=== PATIENT | female | born 1965 | race Caucasian/White ===

== ENCOUNTER 2018-06-24 17:18 | Inpatient (IN) | payer OTHER, SELFPAY ==
[2018-06-24] VITALS (10 sets, daily range): BP systolic 135–158; BP diastolic 82–101; PULSE 88–107; RESP 18–31; TEMP 36.6–37.3; O2SAT 90–95; BMI 18.9; BMI 16.5; BMI 16.6
--- NOTE | 2018-06-24 18:16 | EKG12_ITS ---
Test Reason : SOB Blood Pressure : / mmHG Vent. Rate : 081 BPM Atrial Rate : 081 BPM P-R Int : 116 ms QRS Dur : 074 ms QT Int : 374 ms P-R-T Axes : 074 089 072 degrees QTc Int : 434 ms Normal sinus rhythm Normal ECG Confirmed by MICHAEL ACKERMAN, DELICIA ([id number]), script editor JUAN CARLOS OLIVARES ([id number]) on 06/29/2018 1:53:59 PM Referred By: NOE Confirmed By:DELICIA RODRIGUEZ MD
[2018-06-24] MEDS: Ipratropium/Albuterol Sulfate 3 ML AMPUL.NEB INHALATION (18:24)
[2018-06-24 18:34] LABS: Absolute Lymphocyte Count 1.38 X10^3/ul (0.83-4.51); Absolute Neutrophil Count 3.7 X10^3/uL (2.0-7.7); Basophil# 0.01 X10^3/uL; Basophil% 0.2 % (0-1); Eosinophil# 0.07 X10^3/uL; Eosinophils% 1.2 % (0-5); Hematocrit 39.5 % (37-47); Hemoglobin 13.1 g/dl (12.0-15.0); Lymphocyte # 1.38 X10^3/ul (4.0); Lymphocyte % 24.3 % (19-41); Mean Corp Hgb Conc 33.2 g/gl (32-36); Mean Corpuscular Hgb 29.7 pg (27.0-32.0); Mean Corpuscular Volume 89.6 fL (81-99); Mean Platelet Vol. 9.9 fl (6.2-12.0); Monocyte# 0.55 X10^3/uL; Monocyte% 9.7 % (0-10); Neutrophil # 3.66 X10^3/uL (2.7-7.7); Neutrophil % 64.6 % (47-70); POSITIVE COUNT NO; POSITIVE DIFFERENTIAL NO; POSITIVE MORPHOLOGY NO; Platelet Count 186 K/mm3 (150-450); RBC Distribution Width CV 13.1 % (11.6-14.6); RBC Distribution Width SD 42.5 fl (35.1-43.9); Red Blood Count 4.41 M/mm3 (4.2-5.4); White Blood Count 5.7 K/mm3 (4.4-11.0)
--- NOTE | 2018-06-24 18:56 | RAD_ITS ---
STUDY: X-RAY CHEST REASON FOR EXAM: Female, 52 years old. Shortness of breath TECHNIQUE: PA and lateral views of the chest COMPARISON: None. FINDINGS: COPD changes are present. The lungs are clear. There are no pleural effusions. There is no pneumothorax. The heart is normal in size. The visualized osseous structures are within normal limits. RAD/Chest PA and Lateral IMPRESSION: No acute thoracic pathology. COPD. Electronically Signed: Phil Bishop, at 19:26 EDT Tel , Service support ,
[2018-06-24 18:57] LABS: Anion Gap 6 (5-15); BUN 11 mg/dL (7-18); BUN/Creat Ratio 24.4 RATIO (10-20); Calcium,Total 8.1 mg/dL (8.5-10.1); Chloride 106 mmol/L (98-107); Creatinine, Serum 0.45 mg/dL (0.55-1.02); EST Glomerular Filtration Rate 154 mL/min (>60); Est Glom Filt Rate - Afr Amer 186 mL/min (>60); Estimated Creatinine Clearance 99.27 ml/min; Glucose 112 mg/dL (74-106); Potassium 3.5 mmol/L (3.5-5.1); Sodium Level 139 mmol/L (136-145)
--- NOTE | 2018-06-24 19:35 | ED.VISSUMM ---
- ER Visit Summary Date of Service: 06/24/18 Chief Complaint: Shortness of breath History of Present Illness: The patient is a 52 F who presents with shortness of breath that has been getting worse over the past 6 days. Patient states her breathing is worse with any exertion. Patient states she is having a cough but denies any sputum. Patient admits to some rhinorrhea. Patient also admits to some subjective chills. Patient states she feels tight across her chest. Physical Examination: Vital signs are stable except for pulse oximeter of 93% on 3 L by nasal cannula. Patient is not normally on oxygen. She also has a mild tachypnea with a respiratory rate of 31. Patient is in no acute distress. Oromucosa is pink and moist. Neck is supple. Trachea is midline. There is no JVD noted. Heart was regular rate and rhythm. Lungs showed diminished breath sounds with some faint wheezing bilaterally. There is good respiratory effort noted. There are no retractions noted. Cranial nerves II through XII are intact. There are no focal motor or sensory deficits noted. Test Results: Chest x-ray shows COPD and chronic changes but no acute infiltrate. EKG showed normal sinus rhythm with a rate of 81. There are no acute ST or T wave changes. CBC and basic metabolic profile were obtained and were essentially within normal limits. Emergency Department Course and Treatment: Patient was given a DuoNeb aerosol here. Patient was given a repeat albuterol aerosol and was given Solu-Medrol. Patient states she got short of breath walking to the bathroom. Case was discussed with the hospitalist. He will admit the patient to the hospital. Patient and family understood and were agreeable with the plan. All questions were answered. Disposition: Admit to hospital Impression: 1. COPD exacerbation 2. Hypoxemia This note was generated with [employer] dictation software. It may contain incorrect words, spelling, and punctuation that were not noted in review of the chart prior to signing ED Disposition - Plan for ED Patient: Disposition: Acute Care Hospital [facility] Diagnosis: COPD exacerbation Referrals: Bradford Brown MD [Primary Care Provider] -
--- NOTE | 2018-06-24 19:38 | ED.DCSUM_ITS ---
- ER Visit Summary Date of Service: 06/24/18 Chief Complaint: Shortness of breath History of Present Illness: The patient is a 52 F who presents with shortness of breath that has been getting worse over the past 6 days. Patient states her breathing is worse with any exertion. Patient states she is having a cough but denies any sputum. Patient admits to some rhinorrhea. Patient also admits to some subjective chills. Patient states she feels tight across her chest. Physical Examination: Vital signs are stable except for pulse oximeter of 93% on 3 L by nasal cannula. Patient is not normally on oxygen. She also has a mild tachypnea with a respiratory rate of 31. Patient is in no acute distress. Oromucosa is pink and moist. Neck is supple. Trachea is midline. There is no JVD noted. Heart was regular rate and rhythm. Lungs showed diminished breath sounds with some faint wheezing bilaterally. There is good respiratory effort noted. There are no retractions noted. Cranial nerves II through XII are intact. There are no focal motor or sensory deficits noted. Test Results: Chest x-ray shows COPD and chronic changes but no acute infiltrate. EKG showed normal sinus rhythm with a rate of 81. There are no acute ST or T wave changes. CBC and basic metabolic profile were obtained and were essentially within normal limits. Emergency Department Course and Treatment: Patient was given a DuoNeb aerosol here. Patient was given a repeat albuterol aerosol and was given Solu-Medrol. Patient states she got short of breath walking to the bathroom. Case was discussed with the hospitalist. He will admit the patient to the hospital. Patient and family understood and were agreeable with the plan. All questions were answered. Disposition: Admit to hospital Impression: 1. COPD exacerbation 2. Hypoxemia This note was generated with appsplit dictation software. It may contain incorrect words, spelling, and punctuation that were not noted in review of the chart prior to signing ED Disposition - Plan for ED Patient: Disposition: Acute Care Hospital [facility] Diagnosis: COPD exacerbation Referrals: Bradford Brown MD [Primary Care Provider] -
[2018-06-24] MEDS: Albuterol 2.5 MG/3 ML VIAL.NEB. INHALATION (19:44)
[2018-06-24] MEDS: MethylPREDNISolone 125 MG/2 ML Vial IV (20:02)
--- NOTE | 2018-06-24 21:01 | HP.PCM_ITS ---
Problem List (1) COPD exacerbation Status: Chronic History of Present Illness Date of Admission: 06/24/18 Chief Complaint: shortness of breath The patient is a 52 year old F with a significant history of tobacco abuse; COPD; emphysema and asthma who presented with 1 day history of severe shortness of breath. She went to her PCPs office and she had to be put in a wheelchair and had oxygen supplementation because of severe shortness of breath. At [facility] she does not use home oxygen. She has baseline cough but she thinks that she is coughing more deep but unable to bring anything up. Past Medical History Past Medical History (Chronic Problems): Chronic Problems (Last Updated 06/25/18 @ 00:51 by Dionisio Robles MD) COPD exacerbation (Chronic) Medical History: Medical History (Last Reviewed 06/25/18 @ 03:47 by Dionisio Robles MD) COPD (chronic obstructive pulmonary disease) J44.9 Allergies No Known Allergies Allergy (Verified 06/24/18 17:26) Home Medications: Ambulatory Orders Medication Instructions Recorded Aclidinium [place] [Tudorza 400 mcg IH DAILY 09/23/16 Pressair] Albuterol IH (ProAir) [Proair Hfa 1 - 2 puff INHALATION Q6H PRN PRN 09/23/16 (SP)Vent Pts] Budesonide/Formoterol 160/4.5 2 puff INHALATION BID 09/23/16 [Symbicort 160/4.5 Mcg Inhaler (SP)] Surgical History: herniorrhaphy, - - Right wrist surgery for broken wrist. Lives: Spouse/ Significant Other Smoking Status: Current every day smoker Alcohol: None - *Family History Maternal History Items: Heart Disease Paternal History Items: - - Patient is unsure of paternal medical history. Review of Systems Constitutional: Denies: Chills, Fever, Weight Change HEENT: Denies: Head Aches, Sinus Congestion, Sinus Drainage Cardiovascular: Denies: Chest Pain, Palpitations Respiratory: Reports: Cough, Shortness of Breath, Wheezing Gastrointestinal: Denies: Abdominal Pain, Nausea, Vomiting Genitourinary: Denies: Dysuria Musculoskeletal: Denies: Joint Pain, Joint Tenderness Skin: Denies: Rash, Wounds Neurological: Denies: Numbness, Tingling, Focal weakness Psychiatric: Denies: Anxiety, Depression, Homicidal Ideations, Suicidal Ideations Hematologic/ Lymphatic: Denies: Easy Bruising, Easy Bleeding VTE Information - Inpt Only VTE Present on Admission: No VTE Mechan Device Prophylaxis: None VTE Pharm Prophylaxis ordered?: Yes - Physical Exam General: Alert, Oriented x3, Cooperative HEENT: Atraumatic, PERRLA, EOMI, Normocephalic Neck: Supple, No JVD, Negative Carotid Bruits Lungs: Diminished, Tachypneic, Using Accessory Muscles, - - Barrel chest Cardiovascular: No murmurs, Tachycardic Abdomen: Bowel Sounds Present, Soft, Non Tender Extremities: No edema, Capillary Refill Less than 3 Seconds Skin: No rashes, No breakdown Musculoskeletal: No Tenderness to Palpation of Joints or Extremities Neurological: Cranial nerves II-XII grossly intact Psych/Mental Status: Normal Affect, Appropriate, - - Teary Vital Signs Temp Pulse Resp BP Pulse Ox 98.9 F 107 H 18 143/82 H 95 06/24/18 17:28 06/24/18 19:44 06/24/18 19:44 06/24/18 19:40 06/24/18 19:40 Oxygen Flow Rate (L/min) 3 Oxygen Delivery Method Nasal Cannula Weight: 44 kg Body Mass Index (BMI) 18.9 Laboratory Tests Past 24 Hrs 06/24/18 06/24/18 18:24 18:24 WBC 5.7 RBC 4.41 Hgb 13.1 Hct 39.5 MCV 89.6 MCH 29.7 MCHC 33.2 RDW 13.1 RDW Differential 42.5 Plt Count 186 MPV 9.9 Immature Gran % (Auto) 0.000 Neut % (Auto) 64.6 Lymph % (Auto) 24.3 [place] % (Auto) 9.7 Eos % (Auto) 1.2 Baso % (Auto) 0.2 Absolute Neuts (auto) 3.7 Absolute Lymphs (auto) 1.38 Total Counted Not Reportable Sodium 139 Potassium 3.5 Chloride 106 Carbon Dioxide 27.0 Anion Gap 6 BUN 11 Creatinine 0.45 L Estim Creat Clear Calc 99.27 Est GFR (MDRD) Af Amer 186 Est GFR (MDRD) Non-Af 154 BUN/Creatinine Ratio 24.4 H Glucose 112 H Calcium 8.1 L Assessment/Plan The patient is a 52 year old F with a significant history of tobacco abuse; COPD; emphysema and asthma who presented with severe shortness of breath; and change in characteristic of cough consistent with likely COPD exacerbation. Acute COPD exacerbation Received breathing treatments and Solu-Medrol at emergency department. Solu-Medrol continued. Scheduled DuoNeb ordered PRN Albuterol ordered We will hold home inhalers at this time. Scheduled mucinex ordered. Azithromycin ordered. Chest physiotherapy ordered. Tobacco abuse Counselled Declined nicotine patch stating that for the past few days she has cut back and is now smoking only 2 sticks of cigarettes per day. DVT prophylaxis Subcutaneous Lovenox ordered. Code Visit Inpatient E&M: [id number] Init Hosp L3
--- NOTE | 2018-06-24 21:06 | ED.RN ---
PT SEVERE SOB WHILE AMBULATING. DID NOT TOLERATE WALKING TO AND FROM THE BATHROOM WELL. DR. HAMILTON AWARE
[2018-06-25] VITALS (18 sets, daily range): BP systolic 114–144; BP diastolic 78–93; PULSE 82–124; RESP 16–24; TEMP 36.5–37.2; O2SAT 3–95
[2018-06-25] MEDS: Ipratropium/Albuterol Sulfate 3 ML AMPUL.NEB INHALATION ×6 (02:50→23:00)
[2018-06-25] MEDS: Enoxaparin 40 MG/0.4 ML Syringe SC (09:04)
[2018-06-25] MEDS: guaiFENesin 1,200 MG Tablet 1200 MG PO ×2 (09:04→22:25)
[2018-06-25] MEDS: Albuterol 2.5 MG/3 ML VIAL.NEB. INHALATION (09:23)
--- NOTE | 2018-06-25 13:16 | CASEMGMT ---
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 Marina Andino SLAB GRINDER, PLANT AND EQUIPMENT WORKER
--- NOTE | 2018-06-25 13:18 | PCM.PROGNOTE ---
Subjective: Pt still SOB and requiring 4.5 lpm O2 to maintain good sats. She is SOB at rest and severely with standing up next to the bed. Using the bedside commode because she cannot walk to the bathroom. Still smokes about 1/3 PPD. Very wheezy, conversational dyspnea. Cough productive of clear sputum. No fever/ chills. Some chest heaviness with breathing. - Physical Exam General: Alert, Oriented x3, Cooperative HEENT: Atraumatic, PERRLA, EOMI, Normocephalic Neck: Supple, No JVD, Negative Carotid Bruits Lungs: Wheezes, - - conversational dyspnea, increased work of breathing. Cardiovascular: Regular rate, No murmurs Abdomen: Bowel Sounds Present, Soft, Non Tender Extremities: No edema, Capillary Refill Less than 3 Seconds Skin: No rashes, No breakdown Musculoskeletal: No Tenderness to Palpation of Joints or Extremities Neurological: Cranial nerves II-XII grossly intact Psych/Mental Status: Normal Affect, Appropriate, Alert and oriented to time, place, person, mood and affect Vital Signs Temp Pulse Resp BP Pulse Ox 99.0 F 111 H 24 H 136/92 H 91 06/25/18 12:56 06/25/18 12:56 06/25/18 12:56 06/25/18 12:56 06/25/18 12:56 Oxygen Flow Rate (L/min) 3 Oxygen Delivery Method Nasal Cannula Weight: 84 lb 14.047 oz Body Mass Index (BMI) 16.5 Intake and Output for Last 24 Hours 06/23/18 06/24/18 06/25/18 23:59 23:59 23:59 Intake Total 566 / 566 Output Total 475 / 475 Balance / Laboratory Tests Past 24 Hrs 06/24/18 06/24/18 18:24 18:24 WBC 5.7 RBC 4.41 Hgb 13.1 Hct 39.5 MCV 89.6 MCH 29.7 MCHC 33.2 RDW 13.1 RDW Differential 42.5 Plt Count 186 MPV 9.9 Immature Gran % (Auto) 0.000 Neut % (Auto) 64.6 Lymph % (Auto) 24.3 [place] % (Auto) 9.7 Eos % (Auto) 1.2 Baso % (Auto) 0.2 Absolute Neuts (auto) 3.7 Absolute Lymphs (auto) 1.38 Total Counted Not Reportable Sodium 139 Potassium 3.5 Chloride 106 Carbon Dioxide 27.0 Anion Gap 6 BUN 11 Creatinine 0.45 L Estim Creat Clear Calc 99.27 Est GFR (MDRD) Af Amer 186 Est GFR (MDRD) Non-Af 154 BUN/Creatinine Ratio 24.4 H Glucose 112 H Calcium 8.1 L Medical Necessity - Tobacco Use Smoking Status: Current every day smoker Assessment/Plan 1. Acute hypoxic respiratory failure 2/2 Acute COPD exacerbation - dx with COPD in 2010, follows Dr. Pepper however she has not seen him in years. She will f/u as o/p. Continue steroids, aerosols, add IS. No infectious etiology, stop abx. Required up to 4.5 lpm o2, wean as tolerated. CXR with COPD. 2. Nicotine abuse - patch. Discussed options for quitting as o/p. DVT ppx: lovenox DC planning: likely will need home o2. Needs f/u with Dr. Pepper. This patient was seen by Flash Dubois PA-C under the supervision of Dr. Ford.
--- NOTE | 2018-06-25 14:10 | CASEMGMT ---
RN CM Assessment Presentation: COPD, shortness of breath Intro role of CM and purpose of RN CM assessment to patient in room. Pt continues to be short of breath, needing breaks with conversation due to dyspnea and purse lip breathing in between. Demographics, PCP and Pharmacy verified. Pt states her buys her cigarettes though pt admits he does not want to. RN CM had lengthy conversation re: goals once pt goes home including throwing out cigarettes in home and not having her purchase more. Pt is aware of smoking cessation teaching and agreeable to try to use techniques once home to change habits. Pt states she was very scared on arrival and states I didn't think I was going to make it. Allowed pt time for verbalizing concerns, anxiety re: severity of her COPD and inactivity at home due to her condition. PCP: Dr. Brown Specialists: Dr. Pepper Preferred [facility] Insurance:MMO Prescription Benefit: yes LNOK: , Dann Murray Living Arrangements: Lives in home with her . assists with care needs, but does work during the day. Pt states she did not have a bath in over a week due to shortness of breath. Transportation: drives DME: no DME being used (no home oxygen, cpap or nebulizer- will need script and ordered if needed on dc. See Green Sheet) [facility] D[facility] is [facility] for pt's insurance. HHC: declined. Patient DC goals: Home DC PLAN: Home, likely will need Home Oxygen Jones VALDES RN ACM
[2018-06-25] MEDS: 0.9% NaCl Peripheral Flush Adult/Peds IV ×2 (14:24→22:26)
[2018-06-26] VITALS (10 sets, daily range): BP systolic 101–147; BP diastolic 71–88; PULSE 95–115; RESP 18–26; TEMP 36.5–36.8; O2SAT 86–97
[2018-06-26] MEDS: Ipratropium/Albuterol Sulfate 3 ML AMPUL.NEB INHALATION ×4 (02:30→15:08)
[2018-06-26] MEDS: 0.9% NaCl Peripheral Flush Adult/Peds IV ×2 (05:19→13:45)
[2018-06-26] MEDS: Enoxaparin 40 MG/0.4 ML Syringe SC (09:45)
[2018-06-26] MEDS: guaiFENesin 1,200 MG Tablet 1200 MG PO (09:45)
--- NOTE | 2018-06-26 10:43 | PCM.DC ---
- Discharge Diagnoses Current Active Problems: Current Active and Chronic Problems (Last Reviewed 06/25/18 @ 03:47 by Dionisio Robles MD) COPD exacerbation (Chronic) You will use the following diet at home:: No restrictions Your food should be the consistency of: Regular Your liquids should be the consistency of: Regular/Thin Discharge Activity: Return to Normal Activity, - - No smoking at all. No smoking while using patch. Allergies/Adverse Reactions: Allergies No Known Allergies Allergy (Verified 06/24/18 17:26) Medications to take at Discharge Aclidinium [place] [Tudorza Pressair] 400 mcg IH DAILY 09/23/16 Albuterol IH (ProAir) [Proair Hfa] 1 - 2 puff INHALATION Q6H PRN PRN 09/23/16 Budesonide/Formoterol 160/4.5 [Symbicort 160/4.5 Mcg Inhaler (SP)] 2 puff INHALATION BID 09/23/16 Nicotine [Nicoderm] 14 mg TRANSDERM. DAILY #14 patch 06/26/18 Prednisone 10 mg PO DAILY #30 tablet 06/26/18 The following prescriptions were given: Nicotine [Nicoderm] 14 mg TRANSDERM. DAILY #14 patch Prednisone 10 mg PO DAILY #30 tablet Primary Care Physician: Bradford Brown MD [Primary Care Provider] - Please follow up with your Primary Care Physician in: 1-2 weeks Test Results: Test results from this visit will be discussed in further detail at your follow-up appointment, if applicable. Please Follow Up With: Loki Pepper MD When: 1-2 weeks Proposed Discharge Date: 06/26/18
--- NOTE | 2018-06-26 11:53 | PCM.DC.SUM ---
Discharge Date and Diagnosis Date of Admission: 06/24/18 Date of Discharge: 06/26/18 - Primary Discharge Diagnosis Acute COPD exacerbation Nicotine abuse Chronic hypoxic respiratory failure 2/2 COPD - Secondary Discharge Diagnosis Chronic Problems (Last Reviewed 06/25/18 @ 03:47 by Dionisio Robles MD) COPD exacerbation (Chronic) Hospital Course and Treatment Imaging Results: RAD/Chest PA and Lateral IMPRESSION: No acute thoracic pathology. COPD. Operations: None Procedures: None Summary of Care Provided: Hospital Course: The patient is a 52 year old F past medical history of nicotine abuse and COPD, on triple aerosol therapy at home, who presented to the emergency room with increased shortness of breath, cough with clear sputum production, and severe wheezing. Chest x-ray in the emergency room demonstrated no acute pathology, and was consistent with COPD. She had no fever or leukocytosis. She was felt to be in acute COPD exacerbation. She was admitted to the general medical floor and started on IV Solu-Medrol and DuoNeb therapy. She required 4 L of oxygen to maintain good saturations. She was not on home oxygen. She has followed with Dr. Pepper in the past for pulmonology, however she has not seen him in several years. The patient responded well to steroids and aerosols, however she was unable to be weaned off oxygen despite significant symptomatic improvement. She was ready for discharge, was ambulated to assess for oxygen needs. She required 4 L/min of oxygen at rest, and was able to maintain adequate saturations with 4 L while ambulating as well. She likely has chronic hypoxic respiratory failure secondary to her COPD. She was transitioned to oral steroids and discharged home in stable condition. I also prescribed her 2 weeks worth of nicotine patches as she is interested in complete smoking cessation, and she has used these in the past. We discussed other options as well. She will need to follow-up with her bus matron Dr. Khan in 1 to 2 weeks ideally. She will also need to follow-up with her PCP in 1 to 2 weeks. This patient was seen by Flash Dubois PA-C under the supervision of Doctor Ford. [] - Physical Exam General: Alert, Oriented x3, Cooperative, - - frail HEENT: Atraumatic, PERRLA, EOMI, Normocephalic Neck: Supple, No JVD, Negative Carotid Bruits Lungs: Diminished, Wheezes Cardiovascular: Regular rate, No murmurs Abdomen: Bowel Sounds Present, Soft, Non Tender Extremities: No edema, Capillary Refill Less than 3 Seconds Skin: No rashes, No breakdown Musculoskeletal: No Tenderness to Palpation of Joints or Extremities Neurological: Cranial nerves II-XII grossly intact Psych/Mental Status: Normal Affect, Appropriate Vital Signs Temp Pulse Resp BP Pulse Ox 97.9 F 104 H 26 H 124/88 H 86 06/26/18 08:18 06/26/18 11:20 06/26/18 11:20 06/26/18 08:18 06/26/18 11:00 Oxygen Flow Rate (L/min) [ 4 AMBULATION with Oxygen] Oxygen Flow Rate (L/min) 4 Oxygen Delivery Method Nasal Cannula Weight: 84 lb 14.047 oz Body Mass Index (BMI) 16.5 Intake and Output for Last 24 Hours 06/24/18 06/25/18 06/26/18 23:59 23:59 23:59 Intake Total 1157 / 1157 300 / 300 Output Total 475 / 475 1000 / 1000 Balance 682 / 682 -700 / -700 Discharge Diet: No Restrictions Discharge Activity: Return to Normal Activity, - - No smoking at all. No smoking while using patch. Home Medications: Medications to take at Discharge Aclidinium [place] [Tudorza Pressair] 400 mcg IH DAILY 09/23/16 Albuterol IH (ProAir) [Proair Hfa] 1 - 2 puff INHALATION Q6H PRN PRN 09/23/16 Budesonide/Formoterol 160/4.5 [Symbicort 160/4.5 Mcg Inhaler (SP)] 2 puff INHALATION BID 09/23/16 Nicotine [Nicoderm] 14 mg TRANSDERM. DAILY #14 patch 06/26/18 Prednisone 10 mg PO DAILY #30 tablet 06/26/18 Following Prescrptions Were Given to Patient: Nicotine [Nicoderm] 14 mg TRANSDERM. DAILY #14 patch Prednisone 10 mg PO DAILY #30 tablet Primary Care Physician: Bradford Brown MD [Primary Care Provider] - Please follow up with your Primary Care Physician in: 1-2 weeks Please Follow Up With: Loki Pepper MD When: 1-2 weeks Disposition: Home Minutes spent on discharge:: 35 Patient Condition:: Stable Medical Necessity - Tobacco Use Smoking Status: Current every day smoker Meaningful Use Info Meaningful Use Diagnoses (Choose all that apply): None applicable
--- NOTE | 2018-06-26 11:58 | DS.PCM_ITS ---
Addendum entered and electronically signed by YEIMI Alvares 06/27/18 09:05: Code Visit Addendum: add to problem list: Cachexia 2/2 COPD Addendum entered and electronically signed by Dann Ford DO 06/26/18 18:04: Code Visit Patient was seen and examined independently of Flash Dubois today, her oxygen saturation is stable on 4 L, she continues to have some high-pitched end expiratory wheezes bilaterally. I think the patient is stable for discharge home on oxygen at this time, I cautioned her not to smoke when she got home. On examination she appeared alert and oriented, she was cachectic appearing. Vital signs as documented. Skin warm and dry and without overt rashes. Neck without JVD. Lungs-scattered high-pitched expiratory wheezes are noted bilaterally, patient does not appear to be in respiratory distress. Heart exam notable for regular rhythm, normal sounds and absence of murmurs, rubs or gallops. Abdomen unremarkable and without evidence of organomegaly, masses, or abdominal aortic enlargement. Extremities nonedematous. Neuro: Cranial nerves II through XII are grossly intact, no focal motor deficits were noted, sensation to light touch and pinprick is intact. Psych: Patient is alert and oriented x3, she does not appear anxious or depressed Patient will be discharged home in stable condition at this time, prognosis remains guarded due to her severe COPD. I have reviewed Flash Dubois's discharge summary including his assessment and medical plan of care and endorse it. Inpatient E&M: 09249 Disch Hosp Original Note: Discharge Date and Diagnosis Date of Admission: 06/24/18 Date of Discharge: 06/26/18 - Primary Discharge Diagnosis Acute COPD exacerbation Nicotine abuse Chronic hypoxic respiratory failure 2/2 COPD - Secondary Discharge Diagnosis Chronic Problems (Last Reviewed 06/25/18 @ 03:47 by Dionisio Robles MD) COPD exacerbation (Chronic) Hospital Course and Treatment Imaging Results: RAD/Chest PA and Lateral IMPRESSION: No acute thoracic pathology. COPD. Operations: None Procedures: None Summary of Care Provided: Hospital Course: The patient is a 52 year old F past medical history of nicotine abuse and COPD, on triple aerosol therapy at home, who presented to the emergency room with increased shortness of breath, cough with clear sputum production, and severe wheezing. Chest x-ray in the emergency room demonstrated no acute pathology, and was consistent with COPD. She had no fever or leukocytosis. She was felt to be in acute COPD exacerbation. She was admitted to the general medical floor and started on IV Solu-Medrol and DuoNeb therapy. She required 4 L of oxygen to maintain good saturations. She was not on home oxygen. She has followed with Dr. Pepper in the past for pulmonology, however she has not seen him in several years. The patient responded well to steroids and aerosols, however she was unable to be weaned off oxygen despite significant symptomatic improvement. She was ready for discharge, was ambulated to assess for oxygen needs. She required 4 L/min of oxygen at rest, and was able to maintain adequate saturations with 4 L while ambulating as well. She likely has chronic hypoxic respiratory failure secondary to her COPD. She was transitioned to oral steroids and discharged home in stable condition. I also prescribed her 2 weeks worth of nicotine patches as she is interested in complete smoking cessation, and she has used these in the past. We discussed other options as well. She will need to follow-up with her geography instructor Dr. Khan in 1 to 2 weeks ideally. She will also need to follow-up with her PCP in 1 to 2 weeks. This patient was seen by Flash Dubois PA-C under the supervision of Doctor Ford. [] - Physical Exam General: Alert, Oriented x3, Cooperative, - - frail HEENT: Atraumatic, PERRLA, EOMI, Normocephalic Neck: Supple, No JVD, Negative Carotid Bruits Lungs: Diminished, Wheezes Cardiovascular: Regular rate, No murmurs Abdomen: Bowel Sounds Present, Soft, Non Tender Extremities: No edema, Capillary Refill Less than 3 Seconds Skin: No rashes, No breakdown Musculoskeletal: No Tenderness to Palpation of Joints or Extremities Neurological: Cranial nerves II-XII grossly intact Psych/Mental Status: Normal Affect, Appropriate Vital Signs Temp Pulse Resp BP Pulse Ox 97.9 F 104 H 26 H 124/88 H 86 06/26/18 08:18 06/26/18 11:20 06/26/18 11:20 06/26/18 08:18 06/26/18 11:00 Oxygen Flow Rate (L/min) [ 4 AMBULATION with Oxygen] Oxygen Flow Rate (L/min) 4 Oxygen Delivery Method Nasal Cannula Weight: 84 lb 14.047 oz Body Mass Index (BMI) 16.5 Intake and Output for Last 24 Hours 06/24/18 06/25/18 06/26/18 23:59 23:59 23:59 Intake Total 1157 / 1157 300 / 300 Output Total 475 / 475 1000 / 1000 Balance 682 / 682 -700 / -700 Discharge Diet: No Restrictions Discharge Activity: Return to Normal Activity, - - No smoking at all. No smoking while using patch. Home Medications: Medications to take at Discharge Aclidinium [place] [Tudorza Pressair] 400 mcg IH DAILY 09/23/16 Albuterol IH (ProAir) [Proair Hfa] 1 - 2 puff INHALATION Q6H PRN PRN 09/23/16 Budesonide/Formoterol 160/4.5 [Symbicort 160/4.5 Mcg Inhaler (SP)] 2 puff INHALATION BID 09/23/16 Nicotine [Nicoderm] 14 mg TRANSDERM. DAILY #14 patch 06/26/18 Prednisone 10 mg PO DAILY #30 tablet 06/26/18 Following Prescrptions Were Given to Patient: Nicotine [Nicoderm] 14 mg TRANSDERM. DAILY #14 patch Prednisone 10 mg PO DAILY #30 tablet Primary Care Physician: Bradford Brown MD [Primary Care Provider] - Please follow up with your Primary Care Physician in: 1-2 weeks Please Follow Up With: Loki Pepper MD When: 1-2 weeks Disposition: Home Minutes spent on discharge:: 35 Patient Condition:: Stable Medical Necessity - Tobacco Use Smoking Status: Current every day smoker Meaningful Use Info Meaningful Use Diagnoses (Choose all that apply): None applicable
--- NOTE | 2018-06-28 13:15 | CASEMGMT ---
TIA SYLVESTER DC PHONE CALL DC DATE: 06/26/18 DC Disposition: Home LACE/STRATA: 11/25 Intro role of CM to patient via phone. Pt and RN HIGINIO discussed her smoking cessation. Pt states she has not smoked since going home and she does not have cigarettes in the home. Pt is using Nicoderm patches and this is helping. No questions re: medications and pt is calling this afternoon to make f/u appointment with Dr. Pepper which she states she will be able to attend. Jones BUCHANANN RN ACM
== END 2018-06-26 16:22 | disposition home or self-care (01) | DRG 191 ==
LOC: ED 21:08 → MS3 21:38
PROVIDERS: Admitting Provider Hospitalist; Emergency Provider Emergency Medicine; Family Provider Family Medicine; PCP Family Medicine; Visit Provider Internal Medicine
DX: J44.1 Chronic obstructive pulmonary disease with (acute) exacerbation (principal); R64 Cachexia; Z68.1 Body mass index [BMI] 19.9 or less, adult; J96.11 Chronic respiratory failure with hypoxia; Z72.0 Tobacco use; R06.89 Other abnormalities of breathing; R09.02 Hypoxemia
CPT/HCPCS: 71046; 80048; 85025; 93005; 94640; 94667; 94668; 97162; 97165; 97530; 97535; 99285; 99406; A4216

== ENCOUNTER → 2018-11-03 09:52 | Outpatient (CLI) | payer OTHER, SELFPAY ==
[2018-06-24 21:54] VITALS: BMI 16.5
[2018-11-03 12:17] LABS: Absolute Lymphocyte Count 1.59 X10^3/uL (0.83-4.51); Absolute Neutrophil Count 4.4 X10^3/uL (2.0-7.7); Basophil# 0.03 X10^3/uL; Basophil% 0.4 % (0-1); Eosinophil# 0.11 X10^3/uL; Eosinophils% 1.6 % (0-5); Hematocrit 41.8 % (37-47); Hemoglobin 13.6 g/dL (12.0-15.0); Lymphocyte # 1.59 X10^3/ul (4.0); Lymphocyte % 23.5 % (19-41); Mean Corp Hgb Conc 32.5 g/dL (32-36); Mean Corpuscular Hgb 30.6 pg (27.0-32.0); Mean Corpuscular Volume 94.1 fL (81-99); Mean Platelet Vol. 10.6 fl (6.2-12.0); Monocyte# 0.68 X10^3/uL; NRBC Flagged by Analyzer 0 % (0-5); Neutrophil # 4.36 X10^3/uL (2.7-7.7); Neutrophil % 64.4 % (47-70); Platelet Count 257 K/mm3 (150-450); RBC Distribution Width CV 13.2 % (11.6-14.6); Red Blood Count 4.44 M/mm3 (4.2-5.4); White Blood Count 6.8 K/mm3 (4.4-11.0)
[2018-11-03 12:54] LABS: ALB/GLOB Ratio 1.3 RATIO (0.9-2.4); AST(SGOT) 18 U/L (15-37); Alanine Aminotransfer ALT/SGPT 25 U/L (13-56); Albumin, Serum 4.1 g/dL (3.2-5.0); Alkaline Phosphatase 56 U/L (45-117); Anion Gap 8 (5-15); BUN 20 mg/dL (7-18); BUN/Creat Ratio 36.7 RATIO (10-20); Calcium,Total 8.8 mg/dL (8.5-10.1); Chloride 109 mmol/L (98-107); Cholesterol 179 mg/dL (200); Creatinine, Serum 0.54 mg/dL (0.55-1.02); EST Glomerular Filtration Rate 123 mL/min (>60); Est Glom Filt Rate - Afr Amer 149 mL/min (>60); Globulin 3.1 g/dL (2.2-4.2); Glucose 92 mg/dL (74-106); High Density Lipoprotein 77 mg/dL; Prealbumin 20.5 mg/dL (20.0-40.0); Protein, Total 7.2 g/dL (6.4-8.2); Sodium Level 142 mmol/L (136-145); Triglycerides 49 mg/dL; Very Low Density Lipoprotein 10 mg/dL (5-40)
== END ==
PROVIDERS: Family Provider Family Medicine; PCP Family Medicine; Referring Provider Family Medicine; Visit Provider Nurse Practitioner Family
DX: Z00.00 Encounter for general adult medical examination without abnormal findings (principal); R63.6 Underweight; J44.9 Chronic obstructive pulmonary disease, unspecified
CPT/HCPCS: 80053; 80061; 84134; 84156; 85025

== ENCOUNTER → 2018-11-08 18:44 | Outpatient (CLI) | payer OTHER, SELFPAY ==
[2018-06-24 21:54] VITALS: BMI 16.5
--- NOTE | 2018-11-08 19:07 | CT_ITS ---
STUDY: LOW DOSE CT LUNG CANCER SCREENING REASON FOR EXAM: Female, 53 years old. Current smoker. 20 pack-year smoking history. COPD. Patient weighs 80 pounds. RADIATION DOSAGE (If Supplied By Facility): CTDIvol = ( 2.01 ) mGy, DLP = ( 82.28 ) mGycm TECHNIQUE: No contrast was administered. Low dose technique was utilized (average mAS-38 and kVp 120). 1.25 mm axial source images with a slice interval of 1.25-mm were reconstructed in lung windows. 2.5 mm axial source images with a slice interval of 2.5-mm were reconstructed in lung windows. 5.0 mm axial source images with a slice interval of 5.0-mm were reconstructed in soft tissue windows. Nodule measured using lung windows on PACS and/or independent workstation with automated measurement of minimum and maximum diameter. Nodule measurement reported as average diameter rounded to the nearest whole number. Growth is defined as an increase ins size of greater than 1.5 mm. COMPARISON: Chest, June 24, 2018. NODULES: Total lung nodules (excluding granulomas): 0 Emphysema: There is marked emphysematous changes of lungs. Endobronchial lesion: None Aorta: Minimal atherosclerotic changes of the aortic arch without aneurysm. Coronary arteries: There are coronary artery calcifications. Heart: Normal in size Pulmonary artery: Normal Mediastinal nodes: None Other chest and abdominal findings: Minimal degenerative changes of the thoracic spine. CT/Low Dose CT Lung Screening IMPRESSION: Lung-RADS category 1 - Continue annual screening with LDCT in 12 months. IMPORTANT NOTES FOR USE: ACR Lung-RADS Version 1.0 Assessment Categories Release Date: June 20, 2013 Category: Coded 0-4 bases on nodule(s) with highest degree of suspicion. Negative screen is defined as categories 1 and 2; a positive screen is defined as categories 3 and 4. Category 3 and 4A nodules that are unchanged on interval CT should be coded as category 2, and individuals returned to screening in 12 months. Category 4X: Category 3 or 4 nodules with additional imaging findings that increase the suspicion of lung cancer, such as spiculation, GGN that doubles in size in 1 year, enlarged lymph notes, etc. Category Modifiers: S (significant finding unrelated to lung cancer) and C (prior history of treated lung cancer) may be added to the 0-4 Lung-RADS Electronically Signed: Poncho Dominguez DO at 19:51 EDT Tel [phone], Service support ,
== END ==
PROVIDERS: Family Provider Family Medicine; PCP Family Medicine; Referring Provider Nurse Practitioner Family; Visit Provider Nurse Practitioner Family
DX: J44.9 Chronic obstructive pulmonary disease, unspecified (principal); Z87.891 Personal history of nicotine dependence
CPT/HCPCS: G0297

== ENCOUNTER → 2020-10-17 14:23 | Outpatient (CLI) | payer OTHER, SELFPAY ==
[2020-10-17 18:02] LABS: Anion Gap 3 (5-15); BUN 13 mg/dL (7-18); BUN/Creat Ratio 38.5 RATIO (10-20); Calcium,Total 8.9 mg/dL (8.5-10.1); Chloride 101 mmol/L (98-107); Cholesterol 180 mg/dL (200); Creatinine, Serum 0.34 mg/dL (0.55-1.02); EST Glomerular Filtration Rate 212 mL/min (>60); Est Glom Filt Rate - Afr Amer 257 mL/min (>60); Glucose 118 mg/dL (74-106); High Density Lipoprotein 80 mg/dL; Potassium 3.8 mmol/L (3.5-5.1); Sodium Level 139 mmol/L (136-145); Triglycerides 79 mg/dL; Very Low Density Lipoprotein 16 mg/dL (5-40)
== END ==
PROVIDERS: PCP Family Medicine; Referring Provider Family Medicine; Visit Provider Family Medicine
DX: Z00.00 Encounter for general adult medical examination without abnormal findings (principal)
CPT/HCPCS: 36415; 80048; 80061

== ENCOUNTER 2021-05-03 16:41 | Outpatient (CLI) | payer OTHER, SELFPAY ==
[2021-05-03 18:01] LABS: Anion Gap 5 (5-15); BUN 27 mg/dL (7-18); BUN/Creat Ratio 52.5 RATIO (10-20); Chloride 103 mmol/L (98-107); Creatinine, Serum 0.51 mg/dL (0.55-1.02); EST Glomerular Filtration Rate 131 mL/min (>60); Est Glom Filt Rate - Afr Amer 158 mL/min (>60); Glucose 143 mg/dL (74-106); Potassium 3.7 mmol/L (3.5-5.1); Sodium Level 138 mmol/L (136-145)
== END 2021-05-03 23:59 | disposition home or self-care (01) ==
LOC: MFPLAB 16:42
PROVIDERS: PCP Family Medicine; Referring Provider Family Medicine; Visit Provider Family Medicine
DX: Z00.00 Encounter for general adult medical examination without abnormal findings (principal)
CPT/HCPCS: 36415; 80048

== ENCOUNTER 2021-07-15 19:27 | Inpatient (IN) | payer OTHER, SELFPAY ==
[2021-07-15] VITALS (7 sets, daily range): BP systolic 130–137; BP diastolic 84–96; PULSE 105–118; RESP 17–24; TEMP 37.1; O2SAT 91–97; BMI 17.3
--- NOTE | 2021-07-15 19:44 | EKG12_ITS ---
Test Reason : SOB Blood Pressure : / mmHG Vent. Rate : 101 BPM Atrial Rate : 101 BPM P-R Int : 118 ms QRS Dur : 076 ms QT Int : 346 ms P-R-T Axes : 080 084 062 degrees QTc Int : 448 ms Sinus tachycardia with Fusion complexes Otherwise normal ECG Confirmed by MICHAEL ACKERMAN, DELICIA ([id number]), general expeditor JUAN CARLOS OLIVARES ([id number]) on 07/17/2021 1:22:19 PM Referred By: DANE Confirmed By:DELICIA RODRIGUEZ MD
--- NOTE | 2021-07-15 19:55 | ED.VIS.DYS ---
HPI History of Present Illness Chief Complaint: Shortness of Breath Informant: patient Narrative Narrative: Patient presents with exacerbation of COPD. She is on home oxygen at 4 L. She has not been on steroids for a long time. She does take Trelegy but is not using it right now. She also is on Symbicort which she is using instead of Trelegy. She has a nebulizer but has not been able to get it out of her closet for a couple weeks. She states she does have meds for it but has not been using it. She smokes about a cigarette a day and was counseled to quit. She has had about 8 days of increased wheezing. She has been trying albuterol MDI. It helps but does not resolve her symptoms. She coughs and brings up just some clearish sputum. No blood. No chest pain. No leg swelling. No history of DVT or PE. This exacerbation is typical of her COPD that acts up every now and then. PFSH PFSH Medical History Anxiety Asthma COPD (chronic obstructive pulmonary disease) Hernia Left wrist fracture Migraines On home oxygen therapy Smoker Home Medications albuterol sulfate [ProAir HFA] 1 - 2 puff INHALATION Q6H PRN PRN 09/23/16 [History Last Taken 06/24/18] budesonide-formoterol [Symbicort] 2 puff INHALATION BID 09/23/16 [History Last Taken 06/24/18] Allergy/AdvReac Type Severity Reaction Status Date / Time No Known Allergies Allergy Verified 06/24/18 17:26 Family History Other Heart disease Surgical History H/O wrist surgery History of hernia surgery Social History Smoking Status: Current some day smoker tobacco type: cigarettes ROS ROS ED Constitutional Constitutional ED: Denies chills or fever(s) Eyes Eyes: Denies blurry vision, change in vision or diplopia ENT ENT ED: Denies rhinorrhea or sore throat Cardiovascular Cardiovascular: Denies chest pain or palpitations Respiratory/Chest Respiratory/Chest: Reports cough and dyspnea Gastrointestinal Gastrointestinal: Denies abdominal pain, nausea or vomiting Genitourinary Genitourinary ED: Denies hematuria Musculoskeletal Musculoskeletal: Denies arthralgias or myalgias Integumentary Denies abscess, Abrasions or rash Neurologic Neurologic: Denies headache(s), paresthesias or weakness Psychiatric Psychiatric: Reports anxiety; Denies depression Endocrine Endocrinology: Denies polydipsia or polyuria Hematologic/Lymphatic Hematologic/Lymphatic: Denies easy bleeding or easy bruising Allergic/Immunologic Allergic/Immunologic ED: Denies urticaria EXAM Physical Exam Const Vital Signs: 07/15/21 19:29 07/15/21 19:39 07/15/21 19:59 Temperature 98.8 F Temperature Source Oral Pulse Rate 116 H 115 H Respiratory Rate 23 H 20 H Respiratory Effort Short of Breath Labored Respiratory Depth Shallow Respiratory Pattern Tachypnea Blood Pressure 137/96 H Blood Pressure Mean 109 Pulse Ox 94 Oxygen Delivery Method Nasal Cannula Nasal Cannula Oxygen Flow Rate (L/min) 4 4 07/15/21 21:28 07/15/21 21:31 07/15/21 23:20 Temperature Temperature Source Pulse Rate 105 H 110 H 118 H Respiratory Rate 17 20 H 24 H Respiratory Effort Respiratory Depth Respiratory Pattern Blood Pressure 130/84 H 130/84 H Blood Pressure Mean 99 99 Pulse Ox 94 91 Oxygen Delivery Method Nasal Cannula Nasal Cannula Oxygen Flow Rate (L/min) 4 4 Positive well nourished and well developed General Appearance ED: well developed HEENT Reports moist mucous membranes; Denies dry mucous membranes Mouth ED: No dry mucous membranes Mouth: No dry mucous membranes Eyes General Eye ED: Negative for pale conjunctiva or scleral icterus Neck no JVD Resp Resp Narrative: Patient has some increased respiratory effort does carry on a conversation with slightly shortened sentences. She has very little to no air motion. She has mild tight end expiratory wheeze. Auscultation: wheezes Cardio regular rate, regular rhythm and no murmurs GI non-tender Palpation: soft Back/Spine no CVA tenderness and normal to inspection Extremity normal to inspection General Extremety ED: Negative for edema or tenderness General Extremity: Negative for edema Neuro oriented x3 Sensorium / Orientation: alert, oriented to person and oriented to place; Negative for confused, lethargic or stuporous Psych mental status grossly normal Skin Lesions: no lesions Rashes: no rashes MDM MDM MDM Narrative Medical decision making narrative: Patient's x-ray is consistent with COPD but no acute infiltrate. Electrolytes are overall unremarkable. CBC is normal including white count hemoglobin and platelets. I rechecked the patient. She states she is feeling a little bit better. She is still having some increased work to breathe. But she is starting to move air now. She has some better air flow in and out. She actually has slight increase in wheeze because of this. She would like to try to go home. She states she has put up with this for 8 days. I explained we will get her another breathing treatment and recheck her. We will make decisions together at that time. Patient was given another breathing treatment allowed to rest. I am not seeing any marked improvement between those. She is moving some air when initially there was no audible air motion. She is developing more expiratory wheezing so I think there is some signs of improvement. However, she is still rather dyspneic. I got her up on the edge of the bed to walker. She states she felt too dyspneic. Her respiratory range went up to about 26. Her saturations hit 89% before we laid her back. This was on her 4 L. I am sure she would have desaturated significantly more if I even tried to walk her. Despite 3 breathing treatments, time, steroids I think she has failed. Lab Data Labs: Laboratory Results - last 24 hr 07/15/21 07/15/21 20:03 20:03 WBC 6.3 RBC 4.26 Hgb 12.7 Hct 40.3 MCV 94.6 MCH 29.8 MCHC 31.5 L RDW Std Deviation 43.0 RDW Coeff of Dejuan 12.4 Plt Count 246 MPV 10.3 Immature Gran % (Auto) 0.300 Neut % (Auto) 66.8 Lymph % (Auto) 19.6 [place] % (Auto) 12.2 H Eos % (Auto) 0.8 Baso % (Auto) 0.3 Absolute Neuts (auto) 4.2 Absolute Lymphs (auto) 1.23 Nucleated RBC % 0 Differential Comment SCANNED Sodium 140 Potassium 3.5 Chloride 98 Carbon Dioxide 37.0 H Anion Gap 5 BUN 26 H Creatinine 0.37 L Estim Creat Clear Calc 106.46 Est GFR (MDRD) Af Amer 230 Est GFR (MDRD) Non-Af 190 BUN/Creatinine Ratio 70.1 H Glucose 163 H Calcium 9.1 Radiography Diagnostic Testing: Clinical Impression(s) from Imaging Studies Chest X-Ray 07/15/21 20:16 IMPRESSION: Stable examination demonstrating no acute cardiopulmonary process. Electronically Signed: Luli Rodarte MD at 20:54 EDT , EKG Initial EKG: Comments: EKG done for dyspnea read by me shows a sinus rhythm with slightly tachycardic rate at 101. There is some baseline variation on the EKG but no sign of acute ST elevation or depression. No ventricular ectopy. VT interval, QRS duration and QTc are normal. Discharge Plan Dx/Rx/DC Orders Clinical Impression: COPD exacerbation, Hypoxia Disposition Disposition: Acute Care [facility]
[2021-07-15] MEDS: Ipratropium/Albuterol Sulfate 3 ML AMPUL.NEB INHALATION ×2 (19:58→21:31)
[2021-07-15] MEDS: Albuterol 2.5 MG/3 ML VIAL.NEB. INHALATION (19:58)
[2021-07-15] MEDS: MethylPREDNISolone 125 MG/2 ML Vial IV (20:08)
--- NOTE | 2021-07-15 20:16 | RAD_ITS ---
STUDY: X-RAY CHEST REASON FOR EXAM: Female, 55 years old. Shortness of breath TECHNIQUE: Single frontal view of the chest. COMPARISON: 06/24/2018 FINDINGS: The lungs remain hyperinflated. There is no new focal consolidation. Normal size heart. Normal mediastinum and elizabeth. Normal visualized pulmonary arteries. Normal visualized aortic arch and descending thoracic aorta. Normal visualized thoracic spine. Normal visualized ribs, clavicles, and shoulders. There is no demonstrated abnormality of the visualized soft tissue structures of the upper abdomen. RAD/Chest 1 View (Portable) IMPRESSION: Stable examination demonstrating no acute cardiopulmonary process. Electronically Signed: Luli Rodarte MD at 20:54 EDT ,
[2021-07-15 20:20] LABS: Absolute Lymphocyte Count 1.23 X10^3/uL (0.83-4.51); Absolute Neutrophil Count 4.2 X10^3/uL (2.0-7.7); Basophil# 0.02 X10^3/uL; Basophil% 0.3 % (0-1); Eosinophil# 0.05 X10^3/uL; Eosinophils% 0.8 % (0-5); Hematocrit 40.3 % (37-47); Hemoglobin 12.7 g/dL (12.0-15.0); Lymphocyte # 1.23 X10^3/ul (0.83-4.51); Lymphocyte % 19.6 % (19-41); Mean Corp Hgb Conc 31.5 g/dL (32-36); Mean Corpuscular Hgb 29.8 pg (27.0-32.0); Mean Corpuscular Volume 94.6 fL (81-99); Mean Platelet Vol. 10.3 fl (6.2-12.0); Monocyte# 0.77 X10^3/uL; Monocyte% 12.2 % (0-10); NRBC Flagged by Analyzer 0 % (0-5); Neutrophil % 66.8 % (47-70); POSITIVE MORPHOLOGY YES; Platelet Count 246 K/mm3 (150-450); RBC Distribution Width CV 12.4 % (11.6-14.6); Red Blood Count 4.26 M/mm3 (4.2-5.4); White Blood Count 6.3 K/mm3 (4.4-11.0)
[2021-07-15 20:24] LABS: Differential Indicated SCAN CRITERIA MET
[2021-07-15 20:33] LABS: Anion Gap 5 (5-15); BUN 26 mg/dL (7-18); BUN/Creat Ratio 70.1 RATIO (10-20); Calcium,Total 9.1 mg/dL (8.5-10.1); Chloride 98 mmol/L (98-107); Creatinine, Serum 0.37 mg/dL (0.55-1.02); EST Glomerular Filtration Rate 190 mL/min (>60); Est Glom Filt Rate - Afr Amer 230 mL/min (>60); Estimated Creatinine Clearance 106.46 ml/min; Glucose 163 mg/dL (74-106); Potassium 3.5 mmol/L (3.5-5.1); Sodium Level 140 mmol/L (136-145)
[2021-07-15 20:54] LABS: Differential Comment SCANNED
--- NOTE | 2021-07-15 23:30 | HP.PCM.HOS_ITS ---
HPI - General HPI Narrative HEMANTH ESTRADA, is a 55 F with a significant history of anxiety disorder; asthma; COPD and emphysema on 4 L nasal cannula oxygen who presents to the emergency department with 8 day history of progressively worsening shortness of breath. Her shortness of breath is at rest. Associated with her symptoms is a productive cough of light clear sputum. Further she has orthopnea and proximal nocturnal dyspnea. She has anorexia. She report that about 5 days ago she had a fever. Reportedly her fever abated about 3 days ago. Emergency department doctor reported that attempt was made to ambulate patient. When patient got up she got very short of breath. PFSH Medical History Anxiety Asthma COPD (chronic obstructive pulmonary disease) Hernia Left wrist fracture Migraines On home oxygen therapy Smoker Home Medications albuterol sulfate [ProAir HFA] 1 - 2 puff INHALATION Q6H PRN PRN 09/23/16 [History Last Taken 06/24/18] budesonide-formoterol [Symbicort] 2 puff INHALATION BID 09/23/16 [History Last Taken 06/24/18] Allergy/AdvReac Type Severity Reaction Status Date / Time No Known Allergies Allergy Verified 06/24/18 17:26 Family History Other Heart disease Surgical History H/O wrist surgery History of hernia surgery Social History Smoking Status: Current some day smoker tobacco type: cigarettes ROS ROS Narrative Pertinent positives and pertinent negatives as noted in HPI. All other systems were reviewed and are negative. Vital Signs Vital Signs Vital Signs: 07/15/21 19:29 07/15/21 19:39 07/15/21 19:59 Temperature 98.8 F Temperature Source Oral Pulse Rate 116 H 115 H Respiratory Rate 23 H 20 H Respiratory Effort Short of Breath Labored Respiratory Depth Shallow Respiratory Pattern Tachypnea Blood Pressure 137/96 H Blood Pressure Mean 109 Pulse Ox 94 Oxygen Delivery Method Nasal Cannula Nasal Cannula Oxygen Flow Rate (L/min) 4 4 07/15/21 21:28 07/15/21 21:31 07/15/21 23:20 Temperature Temperature Source Pulse Rate 105 H 110 H 118 H Respiratory Rate 17 20 H 24 H Respiratory Effort Respiratory Depth Respiratory Pattern Blood Pressure 130/84 H 130/84 H Blood Pressure Mean 99 99 Pulse Ox 94 91 Oxygen Delivery Method Nasal Cannula Nasal Cannula Oxygen Flow Rate (L/min) 4 4 Weight Weight: 40.2 kg Body Mass Index (BMI) 17.3 Physical Exam Narrative Physical exam: General: Cachectic Head: Normocephalic, atraumatic, no tenderness Eyes: Vision is grossly intact. EOMI ENT, no trauma, moist mucous membranes, no rhinorrhea Neck: Nontender, full range of motion, no spinal tenderness, deformities, step- off CVS: Tachycardia. S1-S2 present. No murmur, gallop or rub. Respiratory : Tachypnea, use of accessory muscles of respiration. C onversational dyspnea. Wheezes and diminished. Abdomen: Soft, nontender, nondistended, normal bowel sounds, no masses : Deferred Back: Nontender, no CVA tenderness, no midline spinal tenderness, deformities, step-offs Extremities: Nontender full range of motion, no trauma Skin: Normal color, no trauma, abrasions Neuro: Alert, oriented, cranial nerves II through XII grossly intact. Psychiatry: Normal mood. Normal affect. Not depressed. Not anxious. Results Lab / Micro Data Result Diagrams: 07/15/21 20:03 07/15/21 20:03 Labs: Laboratory Results - last 24 hr 07/15/21 20:03: WBC 6.3, RBC 4.26, Hgb 12.7, Hct 40.3, MCV 94.6, MCH 29.8, MCHC 31.5 L, RDW Std Deviation 43.0, RDW Coeff of Dejuan 12.4, Plt Count 246, MPV 10.3, Immature Gran % (Auto) 0.300, Neut % (Auto) 66.8, Lymph % (Auto) 19.6, [place] % (Auto) 12.2 H, Eos % (Auto) 0.8, Baso % (Auto) 0.3, Absolute Neuts (auto) 4.2, Absolute Lymphs (auto) 1.23, Nucleated RBC % 0, Differential Comment SCANNED 07/15/21 20:03: Sodium 140, Potassium 3.5, Chloride 98, Carbon Dioxide 37.0 H, Anion Gap 5, BUN 26 H, Creatinine 0.37 L, Estim Creat Clear Calc 106.46, Est GFR (MDRD) Af Amer 230, Est GFR (MDRD) Non-Af 190, BUN/Creatinine Ratio 70.1 H, Glucose 163 H, Calcium 9.1 Radiology Impression Chest X-Ray 07/15/21 20:16 IMPRESSION: Stable examination demonstrating no acute cardiopulmonary process. Electronically Signed: Luli Rodarte MD at 20:54 EDT , Assessment & Plan Assessment/Plan (1) COPD exacerbation: (2) Protein calorie malnutrition: QUALIFIERS: Protein-calorie malnutrition severity: severe Qualified Code(s): E43 - Unspecified severe protein-calorie malnutrition PLAN: Acute COPD exacerbation CXR was visualized and independently interpreted. I agree with radiologist interpretation. Scheduled DuoNeb Albuterol as needed Solu-Medrol IV ordered Scheduled Mucinex ordered Continue oxygen supplementation to maintain oxygen saturation of at least 90% CBC reviewed showed normal white count and normal hemoglobin. Monitor BMP and CBC Elevated blood pressure the diagnosis of hypertension Trend blood pressures Severe protein calorie malnutrition BMI of 17.3 kg/m?. Ensure Enlive ordered. Dietitian consult. DVT prophylaxis Subcutaneous Lovenox ordered. Charges/Coding Visit Charges Inpatient E&M: 35827 Init Hosp L3
[2021-07-16] VITALS (13 sets, daily range): BP systolic 130–146; BP diastolic 91–95; PULSE 95–124; RESP 18–32; TEMP 36.6–37.4; O2SAT 93–98; BMI 16.8
[2021-07-16] MEDS: MELATONIN 3 MG TABLET PO (00:49)
[2021-07-16] MEDS: guaiFENesin 1,200 MG Tablet 1200 MG PO ×3 (00:50→22:06)
[2021-07-16] MEDS: 0.9% Saline Lock 10 ML Syringe IV ×2 (05:14→22:07)
[2021-07-16 05:59] LABS: Absolute Lymphocyte Count 0.63 X10^3/uL (0.83-4.51); Absolute Neutrophil Count 3.4 X10^3/uL (2.0-7.7); Hematocrit 39.3 % (37-47); Hemoglobin 12.3 g/dL (12.0-15.0); Lymphocyte # 0.63 X10^3/ul (0.83-4.51); Mean Corp Hgb Conc 31.3 g/dL (32-36); Mean Corpuscular Hgb 29.4 pg (27.0-32.0); Mean Corpuscular Volume 93.8 fL (81-99); Monocyte# 0.14 X10^3/uL; Monocyte% 3.3 % (0-10); NRBC Flagged by Analyzer 0 % (0-5); Neutrophil # 3.41 X10^3/uL (2.7-7.7); Neutrophil % 81.5 % (47-70); POSITIVE MORPHOLOGY YES; Platelet Count 248 K/mm3 (150-450); RBC Distribution Width CV 12.4 % (11.6-14.6); RBC Distribution Width SD 42.5 fl (35.1-43.9); Red Blood Count 4.19 M/mm3 (4.2-5.4); White Blood Count 4.2 K/mm3 (4.4-11.0)
[2021-07-16 06:27] LABS: Anion Gap 5 (5-15); BUN 26 mg/dL (7-18); Chloride 97 mmol/L (98-107); Creatinine, Serum 0.36 mg/dL (0.55-1.02); EST Glomerular Filtration Rate 200 mL/min (>60); Est Glom Filt Rate - Afr Amer 241 mL/min (>60); Estimated Creatinine Clearance 106.42 ml/min; Glucose 182 mg/dL (74-106); Potassium 3.9 mmol/L (3.5-5.1); Sodium Level 137 mmol/L (136-145)
[2021-07-16 06:30] LABS: Differential Indicated SCAN CRITERIA MET
[2021-07-16 06:33] LABS: Differential Comment SCANNED
--- NOTE | 2021-07-16 06:55 | PN.HOSP_ITS ---
Subjective Subjective breathing better, but not at baseline yet, despite being on 4 liters of oxygen, which is what she is on at home. Objective Data Objective Data Vital Signs: Vital Signs Temp Pulse Resp BP Pulse Ox 36.7 C 107 H 28 H 135/93 H 94 07/16/21 05:17 07/16/21 05:17 07/16/21 05:17 07/16/21 05:17 07/16/21 05:17 Oxygen Flow Rate (L/min) 4 Oxygen Delivery Method Nasal Cannula Weight: 39.1 kg Body Mass Index (BMI) 16.8 Intake & Output: Intake and Output for Last 24 Hours 07/14/21 07/15/21 07/16/21 23:59 23:59 23:59 Intake Total 200 / 200 Output Total 350 / 350 Balance -150 / -150 Lab / Micro Data Result Diagrams: 07/16/21 05:39 07/16/21 05:39 Labs: Laboratory Results - last 24 hr 07/15/21 20:03: WBC 6.3, RBC 4.26, Hgb 12.7, Hct 40.3, MCV 94.6, MCH 29.8, MCHC 31.5 L, RDW Std Deviation 43.0, RDW Coeff of Dejuan 12.4, Plt Count 246, MPV 10.3, Immature Gran % (Auto) 0.300, Neut % (Auto) 66.8, Lymph % (Auto) 19.6, Mayes % (Auto) 12.2 H, Eos % (Auto) 0.8, Baso % (Auto) 0.3, Absolute Neuts (auto) 4.2, Absolute Lymphs (auto) 1.23, Nucleated RBC % 0, Differential Comment SCANNED 07/15/21 20:03: Sodium 140, Potassium 3.5, Chloride 98, Carbon Dioxide 37.0 H, Anion Gap 5, BUN 26 H, Creatinine 0.37 L, Estim Creat Clear Calc 106.46, Est GFR (MDRD) Af Amer 230, Est GFR (MDRD) Non-Af 190, BUN/Creatinine Ratio 70.1 H, Glucose 163 H, Calcium 9.1 07/16/21 05:39: WBC 4.2 L, RBC 4.19 L, Hgb 12.3, Hct 39.3, MCV 93.8, MCH 29.4, MCHC 31.3 L, RDW Std Deviation 42.5, RDW Coeff of Dejuan 12.4, Plt Count 248, MPV 10.0, Immature Gran % (Auto) 0.200, Neut % (Auto) 81.5 H, Lymph % (Auto) 15.0 L, Mayes % (Auto) 3.3, Eos % (Auto) 0.0, Baso % (Auto) 0.0, Absolute Neuts (auto) 3.4, Absolute Lymphs (auto) 0.63 L, Nucleated RBC % 0, Differential Comment SCANNED 07/16/21 05:39: Sodium 137, Potassium 3.9, Chloride 97 L, Carbon Dioxide 35.0 H, Anion Gap 5, BUN 26 H, Creatinine 0.36 L, Estim Creat Clear Calc 106.42, Est GFR (MDRD) Af Amer 241, Est GFR (MDRD) Non-Af 200, BUN/Creatinine Ratio 73.0 H, Glucose 182 H, Calcium 9.0 Radiography Diagnostic Testing: Radiology Impression Chest X-Ray 07/15/21 20:16 IMPRESSION: Stable examination demonstrating no acute cardiopulmonary process. Electronically Signed: Luli Rodarte MD at 20:54 EDT , Physical Exam Const alert Constitutional Narrative: cachectic. afebrile. Resp Resp Narrative: diminished BS bilterally. Cardio regular rate, regular rhythm, S1 normal heart sound and S2 normal heart sound GI normal to inspection, nondistended, normoactive bowel sounds, soft to palpation, non-tender and non-distended Extremity normal to inspection Assessment & Plan Assessment/Plan (1) COPD exacerbation: (2) Protein calorie malnutrition: QUALIFIERS: Protein-calorie malnutrition severity: severe Qualified Code(s): E43 - Unspecified severe protein-calorie malnutrition PLAN: 1. Acute COPD exacerbation * BDs, methylpred * Currently on 4 liters, which is what she is on at home, but tacypneic * CXR unremarkable for infiltrate * subjectively not improved. continue current mgmt. 2. HTN * monitor * follow up with PCP for long-term mgmt if indicated. 3. Severe protein calorie malnutrition * likely due to the chronic catabolic nature of her COPD * BMI of 17.3 kg/m?. Ensure Enlive ordered. Dietitian consult. 4. DVT prophylaxis * Subcutaneous Lovenox ordered. Charges/Coding Visit Charges Inpatient E&M: 90490 Subs Hosp L2
[2021-07-16] MEDS: Ipratropium/Albuterol Sulfate 3 ML AMPUL.NEB INHALATION ×4 (07:21→18:57)
[2021-07-16] MEDS: Enoxaparin 40 MG/0.4 ML Syringe SC (10:12)
--- NOTE | 2021-07-16 11:45 | CASEMGMT ---
Addendum entered by Masha Swift 07/16/21 12:26: TC to [facility], pt oxygen script is 2L cont. Spoke with Belén, pt insurance is capped, she is not eligible for a POC until 2023. States her insurance pays for rental for 36 mos then pays maintenance for the remaining 2 years. Notified pt nurse pt home script for testing at ks. Original Note: TIA SYLVESTER Assessment: Face to Face with pt for initial transition planning/care coordination assessment. TIA SYLVESTER introduced self and role at [facility], pt voices understanding and consents to assessment. Pt is A/O x4 and answers all questions appropriately at this time. Pt dyspneic with conversation sitting up in bed with O2 on. Care providers, pharmacy, and demographics verified/updated. Admitting Dx: COPD exac PCP:Kevin Specialists:Shantelle, pt has not seen since 2014 Preferred Pharmacy: [facility] Insurance: MMO Prescription Benefit: yes LW/HPOA: Pt denies having a LW/DPOA and denies need for info regarding AD. LNOK: Dann Murray, Living Arrangements: Pt lives with in a single story home with 4 steps to enter with a rail. Pt reports she has trouble with bathing and grooming d/t her sob but she does it herself. She states she typically sponge bathes with wipes. Pt reports she has not been oob for the last 8 days other than to use restroom d/t buckner. Pt reports she has not been out of the house for 2 years except for doctor appts d/t her breathing. Her gets groceries and does household tasks. Transportation: Pt provides transportation. She has not driven in 2.5 years. DME/HHC/SNF: Pt has oxygen through [facility]. She states she uses 4L cont. She has portable tanks but not a portable concentrator. She states she tried to get one before but her insurance did not cover it. Pt has a pox as well as a walker. Pt does not use walker currently. She is not sure her pox works. Advised her she could bring in to compare with hospital pox or try to change battery. Pt denies hx of HHC or SNF stays. Pt states no concerns with going home at time of ks. Discussed with pt options of HHC at home and expectations as well as Palliative Care. Provided pt with palliative care pamphlet and a list of HHC providers including quality and resource use data and consistent with the patient?s preferred geographic region, medical needs, and insurance network. Pt to review these and RN CM will check back to see if pt has interest. Pt states no further concerns/needs. CM to follow. Advised pt to ask CM if any further question/concerns/needs arise, voices understanding. Pt Goal: Home Plan: Home, possible HHC and/or palliative care
--- NOTE | 2021-07-16 13:29 | CPS ---
Patient became very SOB and anxious during aerosol treatment. Nurse notified.
[2021-07-17] VITALS (11 sets, daily range): BP systolic 138–159; BP diastolic 85–108; PULSE 88–122; RESP 19–26; TEMP 36.6–37.2; O2SAT 94–100
[2021-07-17] MEDS: Albuterol 2.5 MG/3 ML VIAL.NEB. INHALATION (05:20)
[2021-07-17] MEDS: 0.9% Saline Lock 10 ML Syringe IV ×3 (05:39→20:46)
--- NOTE | 2021-07-17 07:00 | PN.HOSP_ITS ---
Subjective Subjective Had SOB yesterday. Still SOB, but feels better with 5l/m rather than 4l/m. Notes, at baseline, that she is very winded. She rarely leaves the house, and if does, she'll stay in the car. Objective Data Objective Data Vital Signs: Vital Signs Temp Pulse Resp BP Pulse Ox 36.7 C 88 19 H 146/91 H 94 07/16/21 22:00 07/17/21 05:20 07/17/21 05:20 07/16/21 22:00 07/17/21 05:22 Oxygen Flow Rate (L/min) 5 Oxygen Delivery Method Nasal Cannula Weight: 39.1 kg Body Mass Index (BMI) 16.8 Intake & Output: Intake and Output for Last 24 Hours 07/15/21 07/16/21 07/17/21 23:59 23:59 23:59 Intake Total 900 / 900 Output Total 350 / 450 300 / 300 Balance 550 / 450 -300 / -300 Medical Nutrition Assessment Dietitian: Malnutrition Criteria Met Start: 07/16/21 11:24 Freq: Status: Active Protocol: Document 07/16/21 11:25 (Rec: 07/16/21 11:25 [id number]) Nutrition Malnutrition Evidence of Malnutrition Exists Yes Malnutrition (severe): Chronic Malnutrition (unspecified) Severe pro/jackeline Evidenced By Weight Loss (Severe),Physical Changes (Severe) Clinical Problem Chronic Disease or Condition Related Malnutrition Etiology related to COPD and emphysemia Signs/Symptoms as evidenced by 5.2% weight loss in <1 month and severe orbital fat loss/severe clavicle muscle loss; BMI 16.8 Status Active Problem Recommendation Dietitian Recommendations/Changes Continue Regular diet Ensure Enlive 4x daily with [employer] Lab / Micro Data Result Diagrams: 07/16/21 05:39 07/16/21 05:39 Physical Exam Const Constitutional Narrative: cachectic. afebrile. speaking in full sentences without conversational dyspnea. Resp normal respiratory effort, no retractions, no use of accessory muscles and clear to auscultation bilaterally Cardio regular rate, regular rhythm, S1 normal heart sound and S2 normal heart sound GI normal to inspection, nondistended, normoactive bowel sounds, soft to palpation and non-tender Neuro Sensorium / Orientation: awake and alert Assessment & Plan Assessment/Plan (1) COPD exacerbation: (2) Protein calorie malnutrition: QUALIFIERS: Protein-calorie malnutrition severity: severe Qualified Code(s): E43 - Unspecified severe protein-calorie malnutrition PLAN: 1. Acute COPD exacerbation * BDs, methylpred * Currently on 4 liters, which is what she is on at home, but tacypneic * CXR unremarkable for infiltrate * subjectively not improved. continue current mgmt. 2. HTN * monitor * follow up with PCP for long-term mgmt if indicated. 3. Severe protein calorie malnutrition * likely due to the chronic catabolic nature of her COPD * BMI of 17.3 kg/m?. Ensure Enlive ordered. Dietitian consult. 4. DVT prophylaxis * Subcutaneous Lovenox ordered. Advance care planning: Spent additional 20 minutes discussing with the patient and addressing her CODE STATUS. Patient had been full CODE STATUS. Talk to the patient that I would be concerned given her overall limited performance status that if she were to decline such as getting COVID-19 or pneumonia that she may require ventilator and if she were to be put on a ventilator that she may require prolonged ventilation which may potentially lead to a tracheostomy and a PEG tube placement. I recommended to her, that having those procedures would not provide her any quality of life and that she may spend the remainder of her days in and out of medical facilities, that she be DNR Comfort Care arrest no intubation. She is in agreement and will change her CODE STATUS. I did advise her that she could change her mind at any point. Charges/Coding Visit Charges Inpatient E&M: 99405 Subs Hosp L2 Procedures Hospitalists Procedures: 74314 Advncd Care Plan 30 Min
[2021-07-17] MEDS: Ipratropium/Albuterol Sulfate 3 ML AMPUL.NEB INHALATION ×4 (07:34→18:46)
[2021-07-17] MEDS: guaiFENesin 1,200 MG Tablet 1200 MG PO ×2 (09:38→20:46)
[2021-07-17] MEDS: Enoxaparin 40 MG/0.4 ML Syringe SC (09:38)
--- NOTE | 2021-07-17 11:29 | CASEMGMT ---
Addendum entered by Masha Swift 07/17/21 13:52: Liaison from Palliative Care met with pt, pt signed. Addendum entered by Masha Swift 07/17/21 12:38: Received tc back from Kavita at [facility], they are able to accept pt. Original Note: TIA CM in to pt room, pt sitting up in bed. Pt speaks of her code status changing. Discussed with patient the expectations of [facility], pt is agreeable to this. Pt chooses 1. [facility] 2. [facility]. Pt is also interested speaking with palliative care services. Received order, pt met criteria using [facility] Palliative Care Screening Tool. TC to Kavita at [facility], referral made, will await acceptance. Emailed palliative care for referral at this time as well.
--- NOTE | 2021-07-17 12:31 | CASEMGMT ---
Social Work Referral received from RNCM for transportation needs. SW met with pt and introduced self and role of SW. Pt stating that her can provide transportation home from the hospital. When pt has medical appointments she has to schedule them after 4 or spouse has to take a vacation day to get her to appointments. SW provided pt with written information on [employer], [facility] Van and [employer] along with a [employer] card. Pt appreciative of information and denies further needs at this time. RUBINA Thomas
[2021-07-17] MEDS: MELATONIN 3 MG TABLET PO (20:47)
[2021-07-18] VITALS (10 sets, daily range): BP systolic 132–152; BP diastolic 85–95; PULSE 98–123; RESP 20–30; TEMP 36.6–36.8; O2SAT 95–99
[2021-07-18] MEDS: 0.9% Saline Lock 10 ML Syringe IV ×3 (05:31→21:12)
[2021-07-18] MEDS: Albuterol 2.5 MG/3 ML VIAL.NEB. INHALATION (05:44)
--- NOTE | 2021-07-18 06:55 | PN.HOSP_ITS ---
Subjective Subjective Still SOB and WARNER. Objective Data Objective Data Vital Signs: Vital Signs Temp Pulse Resp BP Pulse Ox 36.7 C 104 H 20 H 143/95 H 98 07/18/21 02:44 07/18/21 05:44 07/18/21 05:44 07/18/21 02:44 07/18/21 02:44 Oxygen Flow Rate (L/min) 5 Oxygen Delivery Method Nasal Cannula Weight: 39.1 kg Body Mass Index (BMI) 16.8 Intake & Output: Intake and Output for Last 24 Hours 07/16/21 07/17/21 07/18/21 23:59 23:59 23:59 Intake Total 900 / 900 1200 / 1200 400 / 400 Output Total 350 / 450 400 / 550 250 / 250 Balance 550 / 450 800 / 650 150 / 150 Medical Nutrition Assessment Dietitian: Malnutrition Criteria Met Start: 07/16/21 11:24 Freq: Status: Active Protocol: Document 07/16/21 11:25 LO (Rec: 07/16/21 11:25 [id number]) Nutrition Malnutrition Evidence of Malnutrition Exists Yes Malnutrition (severe): Chronic Malnutrition (unspecified) Severe pro/jackeline Evidenced By Weight Loss (Severe),Physical Changes (Severe) Clinical Problem Chronic Disease or Condition Related Malnutrition Etiology related to COPD and emphysemia Signs/Symptoms as evidenced by 5.2% weight loss in <1 month and severe orbital fat loss/severe clavicle muscle loss; BMI 16.8 Status Active Problem Recommendation Dietitian Recommendations/Changes Continue Regular diet Ensure Enlive 4x daily with [employer] Lab / Micro Data Result Diagrams: 07/16/21 05:39 07/16/21 05:39 Physical Exam Const alert and no apparent distress Constitutional Narrative: conversational dyspnea Resp normal respiratory effort and no retractions Resp Narrative: improved airmovement. wheezing bilaterally. Cardio regular rate and regular rhythm Psych affect normal Assessment & Plan Assessment/Plan (1) COPD exacerbation: (2) Protein calorie malnutrition: QUALIFIERS: Protein-calorie malnutrition severity: severe Qualified Code(s): E43 - Unspecified severe protein-calorie malnutrition PLAN: 1. Acute COPD exacerbation * BDs, methylpred * Currently on 5 liters, which is what she is on at home, but tachypneic * CXR unremarkable for infiltrate * improved air movement today 2. HTN * monitor * follow up with PCP for long-term mgmt if indicated. 3. Severe protein calorie malnutrition * likely due to the chronic catabolic nature of her COPD * BMI of 17.3 kg/m?. Ensure Enlive ordered. Dietitian consult. 4. DVT prophylaxis * Subcutaneous Lovenox ordered. 07/17: Advance care planning: Patient had been full CODE STATUS. Talk to the patient that I would be concerned given her overall limited performance status that if she were to decline such as getting COVID-19 or pneumonia that she may require ventilator and if she were to be put on a ventilator that she may require prolonged ventilation which may potentially lead to a tracheostomy and a PEG tube placement. I recommended to her, that having those procedures would not provide her any quality of life and that she may spend the remainder of her days in and out of medical facilities, that she be DNR Comfort Care arrest no intubation. She is in agreement and will change her CODE STATUS. I did advise her that she could change her mind at any point. Later spoke with her on the phone and explained the same details with him. He was very understanding and agreeable to the change in CODE STATUS. Charges/Coding Visit Charges Inpatient E&M: 55898 Subs Hosp L2
[2021-07-18] MEDS: Ipratropium/Albuterol Sulfate 3 ML AMPUL.NEB INHALATION ×5 (07:27→23:11)
[2021-07-18] MEDS: guaiFENesin 1,200 MG Tablet 1200 MG PO ×2 (10:10→21:12)
[2021-07-18] MEDS: Enoxaparin 40 MG/0.4 ML Syringe SC (10:10)
[2021-07-19] VITALS (11 sets, daily range): BP systolic 140–167; BP diastolic 65–104; PULSE 100–116; RESP 20–24; TEMP 36.2–37.2; O2SAT 5–98
[2021-07-19] MEDS: Ipratropium/Albuterol Sulfate 3 ML AMPUL.NEB INHALATION ×5 (03:15→19:21)
[2021-07-19] MEDS: 0.9% Saline Lock 10 ML Syringe IV ×2 (05:12→22:43)
--- NOTE | 2021-07-19 07:08 | PN.HOSP_ITS ---
Subjective Subjective Breathing better. Objective Data Objective Data Vital Signs: Vital Signs Temp Pulse Resp BP Pulse Ox 36.6 C 116 H 20 H 158/65 H 96 07/19/21 02:15 07/19/21 03:16 07/19/21 03:16 07/19/21 02:15 07/19/21 03:16 Oxygen Flow Rate (L/min) 3 Oxygen Delivery Method Nasal Cannula Weight: 39.1 kg Body Mass Index (BMI) 16.8 Intake & Output: Intake and Output for Last 24 Hours 07/17/21 07/18/21 07/19/21 23:59 23:59 23:59 Intake Total 1200 / 1200 640 / 640 Output Total 400 / 550 1110 / 1110 300 / 300 Balance 800 / 650 -470 / -470 -300 / -300 Medical Nutrition Assessment Dietitian: Malnutrition Criteria Met Start: 07/16/21 11:24 Freq: Status: Active Protocol: Document 07/16/21 11:25 (Rec: 07/16/21 11:25 [id number]) Nutrition Malnutrition Evidence of Malnutrition Exists Yes Malnutrition (severe): Chronic Malnutrition (unspecified) Severe pro/jackeline Evidenced By Weight Loss (Severe),Physical Changes (Severe) Clinical Problem Chronic Disease or Condition Related Malnutrition Etiology related to COPD and emphysemia Signs/Symptoms as evidenced by 5.2% weight loss in <1 month and severe orbital fat loss/severe clavicle muscle loss; BMI 16.8 Status Active Problem Recommendation Dietitian Recommendations/Changes Continue Regular diet Ensure Enlive 4x daily with medpass Lab / Micro Data Result Diagrams: 07/16/21 05:39 07/16/21 05:39 Physical Exam Const alert and no apparent distress Constitutional Narrative: improved conversational dyspnea Resp normal respiratory effort and no retractions Cardio regular rate, regular rhythm, S1 normal heart sound and S2 normal heart sound Neuro Sensorium / Orientation: awake and alert Assessment & Plan Assessment/Plan (1) COPD exacerbation: (2) Protein calorie malnutrition: QUALIFIERS: Protein-calorie malnutrition severity: severe Qualified Code(s): E43 - Unspecified severe protein-calorie malnutrition PLAN: 1. Acute COPD exacerbation * BDs, methylpred * Currently on 5 liters, which is what she is on at home, but tachypneic * CXR unremarkable for infiltrate * improved air movement today * decrease methylprednisone to BID * if improved 07/20, possible discharge with prednisone taper over 12 days 2. HTN * monitor * follow up with PCP for long-term mgmt if indicated. 3. Severe protein calorie malnutrition * likely due to the chronic catabolic nature of her COPD * BMI of 17.3 kg/m?. Ensure Enlive ordered. Dietitian consult. 4. DVT prophylaxis * Subcutaneous Lovenox ordered. 07/17: Advance care planning: Patient had been full CODE STATUS. Talk to the patient that I would be concerned given her overall limited performance status that if she were to decline such as getting COVID-19 or pneumonia that she may require ventilator and if she were to be put on a ventilator that she may require prolonged ventilation which may potentially lead to a tracheostomy and a PEG tube placement. I recommended to her, that having those procedures would not provide her any quality of life and that she may spend the remainder of her days in and out of medical facilities, that she be DNR Comfort Care arrest no intubation. She is in agreement and will change her CODE STATUS. I did advise her that she could change her mind at any point. Later spoke with her on the phone and explained the same details with him. He was very understanding and agreeable to the change in CODE STATUS. Charges/Coding Visit Charges Inpatient E&M: 43844 Subs Hosp L2
[2021-07-19] MEDS: Enoxaparin 40 MG/0.4 ML Syringe SC (09:35)
[2021-07-19] MEDS: guaiFENesin 1,200 MG Tablet 1200 MG PO ×2 (09:36→22:42)
--- NOTE | 2021-07-19 09:47 | CASEMGMT ---
Notified Kavita at [facility] that pt will not dc today, possibly in the next day or two. Plan for SOC on Thursday.
[2021-07-20] VITALS (11 sets, daily range): BP systolic 128–136; BP diastolic 64–104; PULSE 92–121; RESP 18–28; TEMP 36.7–36.9; O2SAT 96–99
[2021-07-20] MEDS: Albuterol 2.5 MG/3 ML VIAL.NEB. INHALATION (02:20)
[2021-07-20] MEDS: Ipratropium/Albuterol Sulfate 3 ML AMPUL.NEB INHALATION ×5 (06:44→23:45)
[2021-07-20] MEDS: guaiFENesin 1,200 MG Tablet 1200 MG PO ×2 (10:52→21:30)
[2021-07-20] MEDS: Enoxaparin 40 MG/0.4 ML Syringe SC (10:52)
[2021-07-20] MEDS: 0.9% Saline Lock 10 ML Syringe IV ×2 (10:55→21:29)
--- NOTE | 2021-07-20 11:49 | PN.HOSP_ITS ---
Subjective Subjective Patient seen and examined. He had no active complaints today and he does appear to be at her baseline with her COPD. She says she is coughing and is trying to expectorate. Patient however remains still very tachycardic and tachypneic with a heart rate going up to the 120s today. Review of systems otherwise negative. Objective Data Objective Data Vital Signs: Vital Signs Temp Pulse Resp BP Pulse Ox 98.2 F 24 L 120 H 128/64 H 97 07/20/21 07:54 07/20/21 11:22 07/20/21 11:22 07/20/21 07:54 07/20/21 07:54 Oxygen Flow Rate (L/min) 5 Oxygen Delivery Method Nasal Cannula Weight: 86 lb 3.212 oz Body Mass Index (BMI) 16.8 Intake & Output: Intake and Output for Last 24 Hours 07/18/21 07/19/21 07/20/21 23:59 23:59 23:59 Intake Total 640 / 640 120 / 120 Output Total 1110 / 1110 900 / 1200 450 / 450 Balance -470 / -470 -780 / -1080 -450 / -450 Medical Nutrition Assessment Dietitian: Malnutrition Criteria Met Start: 07/16/21 11:24 Freq: Status: Active Protocol: Document 07/16/21 11:25 (Rec: 07/16/21 11:25 [id number]) Nutrition Malnutrition Evidence of Malnutrition Exists Yes Malnutrition (severe): Chronic Malnutrition (unspecified) Severe pro/jackeline Evidenced By Weight Loss (Severe),Physical Changes (Severe) Clinical Problem Chronic Disease or Condition Related Malnutrition Etiology related to COPD and emphysemia Signs/Symptoms as evidenced by 5.2% weight loss in <1 month and severe orbital fat loss/severe clavicle muscle loss; BMI 16.8 Status Active Problem Recommendation Dietitian Recommendations/Changes Continue Regular diet Ensure Enlive 4x daily with [employer] Lab / Micro Data Result Diagrams: 07/16/21 05:39 07/16/21 05:39 Physical Exam Const alert, oriented x3 and no apparent distress Exam Limitations: no limitations HEENT head/scalp atraumatic and moist oral mucous membranes Head and Scalp: normocephalic Eyes PERRL, EOMs intact bilaterally and conjunctivae normal Neck no lymphadenopathy Resp Resp Narrative: diminished breath sounds bibasally, no wheezes or crackles. Has increased A-P diameter of chest due to COPD. on 5L of oxygen, which is her baseline. Tachypneic Cardio regular rhythm, S1 normal heart sound, S2 normal heart sound and no murmurs Cardio Narrative: tachycardic GI normal to inspection, nondistended, normoactive bowel sounds, soft to palpation and non-tender Extremity normal to inspection, full ROM and no clubbing, cyanosis or edema Peripheral Pulses: Yes pulses 2+ throughout Skin no rashes or lesions noted Neuro oriented x3, CN's II-XII intact bilaterally and moves all extremities Sensorium / Orientation: awake and alert Psych affect normal Assessment & Plan Assessment/Plan (1) COPD exacerbation: PLAN: #Acute COPD exacerbation * Patient remains tachypneic and tachycardic. She is on her baseline 5 L of oxygen. * On IV Solu-Medrol. She is also on IV albuterol every 2 as needed. I will DC this as light pink is contributing to her tachycardia. * Continue with Atrovent as needed. * Chest physiotherapy to help with her expectorating sputum. * See his she had defaulted with follow-up with her hearing examiner. I think patient will need close follow-up with hearing examiner for better control of her COPD as she is on only Symbicort and albuterol at home. * will get 2D echo to evaluate as she still remains guillermo short of breath, and has never had an echo before. She may have some pulmonary hypertension contributing to her worsening shortness of breath. * #Chronic hypoxic respiratory failure due to COPD * On 5 L of oxygen at home which she is currently on. * #Severe protein calorie malnutrition. Likely related to her severe COPD. Dietitian on board. On Ensure supplements. DVT prophylaxis: Lovenox Disposition: Anticipate discharge over the next 24 to 48 hours. Charges/Coding Visit Charges Inpatient E&M: 72467 Subs Hosp L2
[2021-07-21] VITALS (10 sets, daily range): BP systolic 111–146; BP diastolic 82–98; PULSE 96–119; RESP 18–24; TEMP 36.6–37.4; O2SAT 86–99
[2021-07-21] MEDS: Ipratropium/Albuterol Sulfate 3 ML AMPUL.NEB INHALATION ×3 (03:13→10:44)
[2021-07-21 06:23] LABS: Absolute Lymphocyte Count 0.49 X10^3/uL (0.83-4.51); Absolute Neutrophil Count 8.7 X10^3/uL (2.0-7.7); Basophil# 0.01 X10^3/uL; Basophil% 0.1 % (0-1); Hematocrit 37.4 % (37-47); Hemoglobin 11.9 g/dL (12.0-15.0); Lymphocyte # 0.49 X10^3/ul (0.83-4.51); Lymphocyte % 4.9 % (19-41); Mean Corp Hgb Conc 31.8 g/dL (32-36); Mean Corpuscular Volume 94.2 fL (81-99); Mean Platelet Vol. 10.2 fl (6.2-12.0); Monocyte% 7.9 % (0-10); NRBC Flagged by Analyzer 0 % (0-5); Neutrophil # 8.74 X10^3/uL (2.7-7.7); Neutrophil % 86.5 % (47-70); POSITIVE DIFFERENTIAL YES; Platelet Count 347 K/mm3 (150-450); RBC Distribution Width CV 12.8 % (11.6-14.6); RBC Distribution Width SD 44.1 fl (35.1-43.9); Red Blood Count 3.97 M/mm3 (4.2-5.4); White Blood Count 10.1 K/mm3 (4.4-11.0)
[2021-07-21 06:24] LABS: Differential Indicated SCAN CRITERIA MET
[2021-07-21 06:49] LABS: Anion Gap 1 (5-15); BUN 23 mg/dL (7-18); BUN/Creat Ratio 61.7 RATIO (10-20); Calcium,Total 8.7 mg/dL (8.5-10.1); Chloride 96 mmol/L (98-107); Creatinine, Serum 0.37 mg/dL (0.55-1.02); EST Glomerular Filtration Rate 189 mL/min (>60); Est Glom Filt Rate - Afr Amer 229 mL/min (>60); Estimated Creatinine Clearance 103.55 ml/min; Glucose 163 mg/dL (74-106); Potassium 4.7 mmol/L (3.5-5.1); Sodium Level 136 mmol/L (136-145)
[2021-07-21] MEDS: Enoxaparin 40 MG/0.4 ML Syringe SC (09:02)
[2021-07-21] MEDS: guaiFENesin 1,200 MG Tablet 1200 MG PO (09:03)
[2021-07-21] MEDS: 0.9% Saline Lock 10 ML Syringe IV (09:23)
--- NOTE | 2021-07-21 10:42 | DS.PCM_ITS ---
Providers Date of Admission: 07/15/21 Primary Care Physician: Dr. Bradford Brown MD Reason For Visit: COPD EXACERBATION Diagnosis Discharge Diagnosis (1) COPD exacerbation: Status: Chronic Code(s): J44.1 - Chronic obstructive pulmonary disease with (acute) exacerbation Medications at Discharge Home Medications albuterol sulfate [ProAir HFA] 1 - 2 puff INHALATION Q6H PRN PRN 09/23/16 budesonide-formoterol [Symbicort] 2 puff INHALATION BID 09/23/16 levofloxacin 750 mg PO DAILY #5 tab 07/21/21 methylprednisolone [Medrol (Devin)] 4 mg PO UD #21 tab 07/21/21 Hospital Course Operations None Procedures None Summary of Care Provided Minutes Spent on Discharge: 45 Hospital Course: Patient is a 55-year-old female with a past medical history for chronic respiratory failure due to COPD as well as anxiety disorder and asthma. She was admitted through the ED with a complaint of progressively worsening shortness of breath which was present at rest and worsened with exacerbation. She had a stent orthopnea and PND. She also had a fever but subsequently fever resolved. Chest x-ray was negative for any acute cardiopulmonary pathology. She was admitted and managed for acute COPD exacerbation. She was put on breathing treatments of bronchodilators and IV Solu-Medrol. Patient's hospital course was complicated by persistent tachycardia but this was chronic extending back to her previous days back in 2019. The shortness of breath gradually im proved and she felt better. She was discharged on 07/21/2021 on p.o. prednisone with a Medrol Dosepak. She was also discharged on p.o. Levaquin 750 mg for 5 days. She is to follow-up with her primary care doctor within 1 to 2 weeks. She was also counseled to follow-up with her senior fire protection engineer as she says she had defaulted follow-up with her senior fire protection engineer for a long while. Patient was also counseled about palliative care in light of her severe COPD that was pretty much progressing to be end-stage COPD. Patient did not want to see palliative care now and so was advised that she follows up with her PCP for referral to palliative care. Patient seen and examined prior to discharge. She says she felt much better today. She still coughing but is not able to expectorate fully. She denies any nausea vomiting and review of systems otherwise negative. Labs and vitals reviewed. Home medication reviewed and reconciled. Physical Exam Const alert, oriented x3 and no apparent distress General Appearance: cooperative and comfortable Exam Limitations: no limitations HEENT normocephalic, head/scalp atraumatic, hearing grossly normal bilaterally and moist oral mucous membranes Eyes PERRL, EOMs intact bilaterally and conjunctivae normal Neck no lymphadenopathy Resp normal respiratory effort and no retractions Resp Narrative: diminished breath sounds bibasally, no wheezes or crackles. Has increased A-P diameter of chest due to COPD. on 4L of oxygen, which is her baseline. Tachypneic Cardio regular rate, regular rhythm, S1 normal heart sound, S2 normal heart sound and no murmurs GI normal to inspection, nondistended, normoactive bowel sounds, soft to palpation, non-tender and non-distended Extremity normal to inspection, full ROM and no clubbing, cyanosis or edema Skin no rashes or lesions noted Neuro oriented x3, CN's II-XII intact bilaterally and moves all extremities Sensorium / Orientation: awake and alert Psych affect normal Medical Records Data Medical Nutrition Assessment Dietitian: Malnutrition Criteria Met Start: 07/16/21 11:24 Freq: Status: Active Protocol: Document 07/16/21 11:25 (Rec: 07/16/21 11:25 [id number]) Nutrition Malnutrition Evidence of Malnutrition Exists Yes Malnutrition (severe): Chronic Malnutrition (unspecified) Severe pro/jackeline Evidenced By Weight Loss (Severe),Physical Changes (Severe) Clinical Problem Chronic Disease or Condition Related Malnutrition Etiology related to COPD and emphysemia Signs/Symptoms as evidenced by 5.2% weight loss in <1 month and severe orbital fat loss/severe clavicle muscle loss; BMI 16.8 Status Active Problem Recommendation Dietitian Recommendations/Changes Continue Regular diet Ensure Enlive 4x daily with medpass Weight / BMI Weight Weight: 86 lb 3.212 oz Body Mass Index (BMI) 16.8 ABG / Lab / Microbiology Data Result Diagrams: 07/21/21 05:51 07/21/21 05:51 Laboratory: Laboratory Results - last 24 hr 07/21/21 05:51: WBC 10.1, RBC 3.97 L, Hgb 11.9 L, Hct 37.4, MCV 94.2, MCH 30.0, MCHC 31.8 L, RDW Std Deviation 44.1 H, RDW Coeff of Dejuan 12.8, Plt Count 347, MPV 10.2, Immature Gran % (Auto) 0.600, Neut % (Auto) 86.5 H, Lymph % (Auto) 4.9 L, Dolores % (Auto) 7.9, Eos % (Auto) 0.0, Baso % (Auto) 0.1, Absolute Neuts (auto) 8.7 H, Absolute Lymphs (auto) 0.49 L, Nucleated RBC % 0 07/21/21 05:51: Sodium 136, Potassium 4.7, Chloride 96 L, Carbon Dioxide 39.0 H, Anion Gap 1 L, BUN 23 H, Creatinine 0.37 L, Estim Creat Clear Calc 103.55, Est GFR (MDRD) Af Amer 229, Est GFR (MDRD) Non-Af 189, BUN/Creatinine Ratio 61.7 H, Glucose 163 H, Calcium 8.7 D/C Instructions Discharge Diet: Low fat / Low cholesterol Discharge Activity: Return to Normal Activity Weight Bearing Status: Weight bearing as tolerated Call your doctor if you observe: Fever of 101 or Higher, Shortness of breath, Dizziness, Swelling in the ankles and Chest pain Meaningful Use Info Meaningful Use Diagnoses (Choose all that apply): None applicable Discharge Plan Admission Admit Date/Time: 07/15/21 23:24 Primary Reason for Your Visit: acute COPD exacerbation Attending Provider: Michelle Beltran Primary Care Provider: Bradford Brown Consulting Providers: Dionisio Robles ; Dionisio Mcdowell Instructions Patient Instructions: COPD: Chronic Coughing, COPD Meds Discharge Orders/Prescriptions Prescriptions: New levofloxacin 750 mg tablet 750 mg PO DAILY Qty: 5 RF: 0 methylprednisolone [Medrol (Devin)] 4 mg tablets,dose pack 4 mg PO UD Qty: 21 RF: 0 Continued albuterol sulfate [ProAir HFA] 1 PUFF inhaler 1 - 2 puff inhalation Q6H PRN PRN (Reason: Asthma) RF: 0 budesonide-formoterol [Symbicort] 1 INHALER inhaler 2 puff inhalation BID RF: 0 Referrals / Follow Up: Channing Murguia DO [STAFF PHYSICIAN] - Within 2 Weeks Bradford Brown MD [Primary Care Provider] - Within 2 Weeks Disposition Disposition (needs filled in before D/C Order can be placed): Home Health Service Charges/Coding Visit Charges Inpatient E&M: 59086 Disch Hosp
== END 2021-07-21 12:30 | disposition home health service (06) | DRG 190 ==
LOC: ED 20:15 → MS3 23:44
PROVIDERS: Admitting Provider Hospitalist; Emergency Provider Emergency Medicine; PCP Family Medicine; Visit Provider Student in an Organized Health Care Education/Training Program
DX: J44.1 Chronic obstructive pulmonary disease with (acute) exacerbation (principal); E43 Unspecified severe protein-calorie malnutrition; J96.21 Acute and chronic respiratory failure with hypoxia; Z68.1 Body mass index [BMI] 19.9 or less, adult; F17.210 Nicotine dependence, cigarettes, uncomplicated; I10 Essential (primary) hypertension; Z99.81 Dependence on supplemental oxygen; Z79.51 Long term (current) use of inhaled steroids; Z66 Do not resuscitate
CPT/HCPCS: 36415; 71045; 80048; 85025; 93005; 94640; 97802; 99251; 99285; A4216; G0463

== ENCOUNTER → 2022-07-01 | Outpatient (CLI) | payer OTHER, SELFPAY ==
--- NOTE | 2022-07-01 14:45 | CT_ITS ---
STUDY: LOW DOSE CT LUNG CANCER SCREENING REASON FOR EXAM: Female, 56 years old. One pack per day smoker x40 years, quit 1 year ago RADIATION DOSAGE (If Supplied By Facility): CTDIvol = ( 2.01 ) mGy, DLP = ( 72.98 ) mGycm TECHNIQUE: No contrast was administered. Low dose technique was utilized (average mAS-38 and kVp 120). 1.25 mm axial source images with a slice interval of 1.25-mm were reconstructed in lung windows. 2.5 mm axial source images with a slice interval of 2.5-mm were reconstructed in lung windows. 5.0 mm axial source images with a slice interval of 5.0-mm were reconstructed in soft tissue windows. COMPARISON: 11/08/2018 Findings: Lung windows show underlying emphysema with bleb formation throughout both lung lujan. Multiple new concerning noncalcified nodules are now noted in the right lung field that were not seen on the previous study. The first is in the medial right upper lobe on axial image 55 measuring 1.5 cm in greatest dimension. A second right upper lobe nodule on axial image 79 measures 1.92 cm in greatest dimension. There is a pleural-based 6 mm noncalcified nodule in the right middle lobe on axial image 96, and a right lower lobe nodule along the fissure on axial image 98 measuring 1 cm. Further evaluation of these with PET/CT or biopsy is recommended. There is no organized infiltrate or effusion. Limited soft tissue windows do not show evidence of thyroid abnormality, no suspicious axillary, mediastinal, perihilar adenopathy. No thoracic aortic aneurysm. There are calcified coronary vessels. Limited cuts through the upper abdomen do not show suspicious abnormality. Bony structures show degenerative change CT/Low Dose CT Lung Screening IMPRESSION: Lung-RADS category 4B - Chest CT with or without contrast, PET/CT and/or tissue sampling can be obtained depending on the probability of malignancy and comorbidities. IMPORTANT NOTES FOR USE: ACR Lung-RADS Version 1.1 Assessment Categories Release Date: 2018 Category: Coded 0-4 bases on nodule(s) with highest degree of suspicion. Negative screen is defined as categories 1 and 2; a positive screen is defined as categories 3 and 4. Category 3 and 4A nodules that are unchanged on interval CT should be coded as category 2, and individuals returned to screening in 12 months. Category 4X: Category 3 or 4 nodules with additional imaging findings that increase the suspicion of lung cancer, such as spiculation, GGN that doubles in size in 1 year, enlarged lymph notes, etc. Category Modifiers: S (significant finding unrelated to lung cancer) Electronically Signed: Carroll Alford MD at 11:33 EDT ,
== END | disposition home or self-care (01) ==
LOC: CT 14:42
PROVIDERS: PCP Family Medicine; Referring Provider Internal Medicine Pulmonary Disease; Visit Provider Internal Medicine Pulmonary Disease
DX: Z87.891 Personal history of nicotine dependence (principal)
CPT/HCPCS: 71271

== ENCOUNTER → 2022-07-22 | Outpatient (CLI) | payer OTHER, SELFPAY ==
--- NOTE | 2022-07-22 10:30 | PET_ITS ---
EXAMINATION: FDG PET-CT INDICATIONS: A 56-year-old female with history of pulmonary nodularity. COMPARISON EXAMINATION: None available INDEX LESION SIZE SUV INTERPRETATION Right upper lung field, right upper lobe 17.2-mm 4.0 Fulfills quantitative criteria for viable neoplasm, histopathologic analysis recommended Right lower lung field, right lower lobe 12.4-mm 5.2 Fulfills quantitative criteria for viable neoplasm TECHNIQUE: Following the intravenous administration of 14.23 mCi of F-18 deoxyglucose via the right antecubital fossa, multiplanar image acquisitions of the neck, chest, abdomen and pelvis to level of mid thigh, obtained at one hour post radiopharmaceutical administration contemporaneously interpreted with the current CT of the neck, chest, abdomen and pelvis, to level of mid thigh, dated 07/22/22 via coregistration reveals: BLOOD GLUCOSE LEVEL:?? 124 mg/dl?HEIGHT:?61 inches?WEIGHT: 103 lbs. FINDINGS: Head/Neck: There is no evidence of abnormal increased glucose metabolism in the pharyngeal mucosal space, parapharyngeal space, bilateral-lateral and anterior neck, hypopharynx and distribution of the laryngeal structures. The visualized portion of the cerebral cortical-subcortical structures demonstrate symmetric and preserved glucose metabolism. CHEST: A nodular focus of increased radiopharmaceutical concentration is defined in the right upper hemithorax pulmonary parenchyma, right upper lobe. The calculated maximal standard uptake value is 4.0. The maximal axial diameter of the metabolic, morphologic abnormality is 17.2-mm. Facilitated FDG uptake is noted in the right lower lung field, right lower lobe with a calculated maximal standard uptake value of 5.2. The maximal axial diameter of the corresponding parenchymal density is 12.4-mm. Accentuated uptake is noted in the descending thoracic aorta commensurate with activated leukocytes associated with atherosclerotic plaque formation. Pertinent chest CT findings are as follows. There is atherosclerotic calcification defined in the thoracic aorta without evidence of dilatation-aneurysm formation. Coronary arterial calcification is observed. Bilateral axillary soft tissue densities are non-glucose avid. Emphysematous changes are defined in the bilateral upper-mid lung zones. Abdomen/Pelvis: Normal physiologic distribution of the radiopharmaceutical is apparent in the hepatic (3.0) and splenic parenchyma, both renal units, bladder and visualized intestinal tract. Pertinent abdomen and pelvis CT findings are as follows. There is atherosclerotic calcification defined in the abdominal aorta without evidence of dilatation-aneurysm formation. Pelvic arterial calcification is observed. A fat containing right inguinal hernia is noted. Right-left inguinal soft tissue densities with fatty hilus formation are non-glucose avid. Calcification is defined in the region of the uterus without evidence of increased glucose metabolism. Colonic diverticulosis is noted without evidence of diverticulitis. Skeletal: Degenerative changes are noted in the cervical, thoracic and lumbar spine without evidence of increased radiopharmaceutical concentration. There are no well-defined sclerotic-lytic changes manifest on review of the appendicular-axial skeletal structures. PET/PET/CT Tumor Base -Thigh Init IMPRESSION: 1. ABNORMAL EXAMINATION INDICATIVE OF MALIGNANT VIABLE NEOPLASM. 2. Increased radiopharmaceutical concentration noted in both the right upper and right lower lobes in two separate nodular presentations fulfill quantitative criteria for viable neoplasm. Histopathologic analysis is recommended. (Sidney et al, Annals of Internal Medicine, 138:724, 2003). 3. No other quantitatively significant hypermetabolic abnormalities are noted. Electronic Signature Galileo Raymond D.O. Accurate Quantification of SUVs for this report are calculated using the exclusive [employer]. ([place]. Patent No. [phone], 983 B2 [phone] [place] patent [phone]). Standardization and correction of the FDG SUV metric via [employer] technology allow for vendor non-specific objective quantitative examination comparison and optimization of the sensitivity and specificity of the FDG PET-CT examination. Electronically Signed: Galileo Raymond, at 12:55 EDT ,
== END | disposition home or self-care (01) ==
LOC: ONC 10:21
PROVIDERS: PCP Family Medicine; Referring Provider Nurse Practitioner Family; Visit Provider Nurse Practitioner Family
DX: C34.90 Malignant neoplasm of unspecified part of unspecified bronchus or lung (principal); R91.8 Other nonspecific abnormal finding of lung field
CPT/HCPCS: 78815; A9552

== ENCOUNTER 2022-09-19 07:55 | Outpatient (CLI) | payer OTHER, SELFPAY ==
--- NOTE | 2022-09-19 | ASPIGT_PTH ---
PATIENT: HEMANTH ESTRADA LOC: CT U#:[id number] AGE/SX: 56/F ROOM: RE09/19/[address]: Dr. Loki Pepper MD : 1965 BED: DIS: 09/19/2022 SPEC #: [id number] RECD: 09/19/22 09:48 STATUS: GEETHA ROSA ELENA #: [id number] HARI: 09/19/22 00:[address]: Loki Pepper V DEPT: SURGICAL PATHOLOGY RECD BY: Devante Farnsworth ENTERED: 09/19/22 09:48 SP TYPE: ASP RAD OTHR DR: Dr. Bradford Brown MD Tissues: Lung, NOS Procedures: FNA Specimen Adequacy Special Stain Group II Surgery Specimen Level IV Imprint (control) HEADER OPERATION: Right lung mass biopsy PRE-OP DIAGNOSIS: Right lung mass TISSUE SUBMITTED: Right lung mass 20-gauge core x6 MICROSCOPIC DIAGNOSIS Right lung mass, CT-guided core biopsy (smears and cytospin): Paucicellular specimen. Negative for malignant cells. See comment. WAYNE:mahsa 09/19/2022 COMMENT The specimen is evaluated at the time of biopsy by Dr. Graves. Immediate Evaluation = Paucicellular specimen. Rare benign cells and macrophages are noted. Smears prepared for the specimen shows a few clusters of benign cells and macrophages. Cytospin prepared from the filtered formalin does not show any cells. Case has been reviewed in consultation with Dr. Bustillos who concurs with the above diagnosis. IDC:AM MICROSCOPIC DESCRIPTION Slides are reviewed. GROSS DESCRIPTION Received in formalin is one container labeled with the patient's name and designated right lung. The specimen consists of a scant amount of bloody fluid. No obvious tissue is noted. Two smears are prepared at the time of core biopsy. The specimen is submitted for cytospin preparation. / WAYNE:mahsa 09/19/2022 TC:cannot code CPT: 56658, [id number]
--- NOTE | 2022-09-19 08:06 | CT_ITS ---
PROCEDURE: CT GUIDED CORE NEEDLE BIOPSY OF A right lower lobe LUNG LESION INDICATION: Female, 56 years old. ABNORMAL FINDINGS OF LUNG PHYSICIAN: Dr. Dillan Mike CONSENT: Written informed consent was obtained having explained the risks, benefits and alternatives in detail with the patient who accepted the risks and agreed to proceed. Laboratory review and clinical assessment was performed. CONSCIOUS SEDATION PROTOCOL: The Drugs used were: 1 mg Versed, IV., and 25 mcg Fentanyl, IV. The sedation time was: 17 minutes. Conscious sedation was started at 9:01 AM and terminating at 9:18 AM The conscious sedation protocol was independently monitored. RADIATION DOSAGE (If Supplied By Facility): CTDIvol = ( 17 ) mGy, DLP = ( 367.2 ) mGycm Individualized dose optimization techniques were used for this CT. TECHNIQUE: The patient was placed in the prone position. A noncontrast CT was performed to localize the lesion in the posterior aspect of the right lower lobe . The skin surface was prepped and draped in a sterile fashion. 1% lidocaine was used for local anesthesia. Using CT guidance, a 20-gauge coaxial biopsy device was advanced to the periphery of the lesion. A total of 7 core specimens were obtained. The specimens were placed in a formalin solution. A post procedure CT demonstrated no adverse sequelae or pneumothorax. Following the biopsy, the patient became short of breath. Chest x-ray demonstrated a 15% right-sided pneumothorax. The patient was transferred to the emergency room for chest tube placement. A negative biopsy does not exclude malignancy. Further imaging or clinical followup based on patient condition and degree of clinical suspicion for malignancy. Suggest rebiopsy, if biopsy results do not match with clinical scenario. CT/Biopsy/Inj or Needle Placement IMPRESSION: 1. CT directed core needle biopsy of the right lower lobe pulmonary nodule using CT image guidance with image documentation as described. Pathology results are pending. 2. Conscious Sedation protocol utilized with independent monitoring. Electronically Signed: Clint Grimaldo MD at 9:44 EDT ,
[2022-09-19 08:11] LABS: Platelet Count 252 K/mm3 (150-450)
[2022-09-19 08:20] VITALS: BP 154/92; PULSE 94; RESP 18; TEMP 36.8; O2SAT 97; BMI 19.8
[2022-09-19 08:20] LABS: International Normalized Ratio 0.9; Prothrombin Time (Protime)PT. 12.5 SECONDS (11.7-14.9)
[2022-09-19 08:21] LABS: Partial Thromboplast Time 25.9 Seconds (24.1-36.2)
[2022-09-19 09:01] VITALS: BP 129/79; BP 135/80; BP 135/84; BP 135/90; PULSE 82; PULSE 84; PULSE 88; RESP 22; RESP 23; RESP 24; O2SAT 100; O2SAT 97; O2SAT 99
[2022-09-19] MEDS: Midazolam 2 MG/2 ML Syringe IV (09:01)
[2022-09-19] MEDS: 0.9% Saline Lock 10 ML Syringe IV (09:02)
[2022-09-19] MEDS: fentaNYL 100 MCG/2 ML Ampul IV (09:03)
[2022-09-19] MEDS: Lidocaine 2% (20 ml mdv) 20 ML Vial INFILT (09:12)
--- NOTE | 2022-09-19 09:20 | NURSING ---
Addendum entered by Ana Barnhart 09/19/22 10:16: 0935- this rn called pts to let him know pt was taken to ed. pt states he will be coming to the hospital Addendum entered by Ana Barnhart 09/19/22 10:13: 0922- po 80% on 6l. Original Note: 918- biopsy complete. opsite applied to r mid back. pt beginning to c/o sob. o2 increased to 6l. po 100% 09- pt moved over to bed. sob increasing. pt back to [place]. radiology aware of need for xray. 921- sob worsening. pt put on non rebreather mask. stable helper called. 25- pt taken to ed via bed.
--- NOTE | 2022-09-19 09:25 | RAD_ITS ---
STUDY: X-RAY CHEST REASON FOR EXAM: Female, 56 years old. Post lung biopsy -- Immediately post lung biopsy TECHNIQUE: Single AP portable view of the chest. COMPARISON: Comparison is made with prior study July 15, 2021. FINDINGS: EKG electrodes are seen. There is hyperinflation of the lungs consistent with chronic obstructive lung disease (COPD). There is evidence of a 50% right-sided pneumothorax following the right lung biopsy. The patient is symptomatic. The patient was transferred to the emergency room for treatment. Normal size heart. Normal mediastinum and elizabeth. Normal visualized pulmonary arteries. Normal visualized aortic arch and descending thoracic aorta. Normal visualized thoracic spine. Normal visualized ribs, clavicles, and shoulders. There is no demonstrated abnormality of the visualized soft tissue structures of the upper abdomen. RAD/Chest Insp/Exp 2 View IMPRESSION: Status post right lung biopsy with a 50% right-sided pneumothorax. The patient was transferred to the emergency room for chest tube placement Electronically Signed: Clint Grimaldo MD at 9:42 EDT ,
== END 2022-09-19 23:59 | disposition home or self-care (01) ==
PROVIDERS: Radiology Diagnostic Radiology; PCP Family Medicine; Referring Provider Internal Medicine Pulmonary Disease; Visit Provider Internal Medicine Pulmonary Disease
DX: Z01.818 Encounter for other preprocedural examination (principal); R91.8 Other nonspecific abnormal finding of lung field; J93.9 Pneumothorax, unspecified
CPT/HCPCS: 32408; 36415; 71046; 77012; 85049; 85610; 85730; 88172; 88305; 88313; 99156; J7050; A4216; C2613

== ENCOUNTER 2022-09-19 09:32 | Observation (INO) | payer OTHER, SELFPAY ==
[2022-09-19] VITALS (22 sets, daily range): BP systolic 101–166; BP diastolic 75–133; PULSE 64–130; RESP 16–30; TEMP 36–36.7; O2SAT 92–99; BMI 18.3; BMI 21.2
--- NOTE | 2022-09-19 09:40 | RAD_ITS ---
STUDY: X-RAY CHEST REASON FOR EXAM: Female, 56 years old. Pneumothorax . Needle decompression. TECHNIQUE: Single AP portable view of the chest. COMPARISON: Comparison is made with prior study done earlier in the day. FINDINGS: EKG electrodes are seen. The left-sided pneumothorax has decreased in size. Small residual right pneumothorax is seen. RAD/Chest 1 View (Portable) IMPRESSION: Small residual right-sided pneumothorax following needle decompression. Electronically Signed: Clint Grimaldo MD at 9:54 EDT ,
--- NOTE | 2022-09-19 09:46 | ED.RN ---
UPON ARRIVAL TO ER PT SOB, PALE, DIAPHORETIC. DR ALFRED ASSESSED PATIENT AND DID EMERGENT BEDSIDE NEEDLE DECOMPRESSION OF THE RIGHT LUNG. 14 GAUGE NEEDLE USED.
--- NOTE | 2022-09-19 09:51 | ED.RN ---
CHEST TUBE SETUP AT BEDSIDE FOR DR ALFRED. PT CONTINUES TO BE ON 15 L NRB WITH INCREASED EASE OF BREATHING. PT CURRENTLY ALERT AND ORIENTED AND RESPONDING TO QUESTIONS AND COMMANDS.
--- NOTE | 2022-09-19 09:59 | EKG12_ITS ---
Test Reason : sob Blood Pressure : / mmHG Vent. Rate : 115 BPM Atrial Rate : 115 BPM P-R Int : 100 ms QRS Dur : 066 ms QT Int : 320 ms P-R-T Axes : 052 071 074 degrees QTc Int : 442 ms Sinus tachycardia with short [place] Nonspecific ST abnormality Abnormal ECG Confirmed by MICHAEL ACKERMAN, DELICIA ([id number]), commissioning editor JUAN CARLOS OLIVARES ([id number]) on 09/20/2022 10:03:31 AM Referred By: Ramesh Confirmed By:DELICIA RODRIGUEZ MD
[2022-09-19] MEDS: Morphine 4 MG/ML Syringe IV ×2 (10:08→10:41)
--- NOTE | 2022-09-19 10:09 | ED.RN ---
THIS RN OVERRODE MORPHINE PER DR REQUEST. GIVEN IV PUSH AT 1005
[2022-09-19 10:10] LABS: Absolute Lymphocyte Count 4.88 X10^3/uL (0.83-4.51); Absolute Neutrophil Count 7.4 X10^3/uL (2.0-7.7); Basophil# 0.03 X10^3/uL; Basophil% 0.2 % (0-1); Eosinophils% 1.4 % (0-5); Hematocrit 41.1 % (37-47); Hemoglobin 13.2 g/dL (12.0-15.0); Lymphocyte # 4.88 X10^3/ul (0.83-4.51); Lymphocyte % 34.5 % (19-41); Mean Corp Hgb Conc 32.1 g/dL (32-36); Mean Corpuscular Hgb 30.7 pg (27.0-32.0); Mean Corpuscular Volume 95.6 fL (81-99); Mean Platelet Vol. 9.9 fl (6.2-12.0); Monocyte# 1.62 X10^3/uL; Monocyte% 11.4 % (0-10); NRBC Flagged by Analyzer 0 % (0-5); Neutrophil # 7.39 X10^3/uL (2.7-7.7); Neutrophil % 52.2 % (47-70); POSITIVE DIFFERENTIAL YES; Platelet Count 280 K/mm3 (150-450); RBC Distribution Width CV 13.4 % (11.6-14.6); RBC Distribution Width SD 47.5 fl (35.1-43.9); White Blood Count 14.2 K/mm3 (4.4-11.0)
--- NOTE | 2022-09-19 10:15 | RAD_ITS ---
STUDY: X-RAY CHEST REASON FOR EXAM: Female, 56 years old. CHEST TUBE PLACEMENT TECHNIQUE: Single AP portable view of the chest. COMPARISON: Comparison is made with prior study done earlier today at 9:38 AM. FINDINGS: The small-caliber right-sided chest tube has been placed in the mid right thorax. There is no evidence of pneumothorax at this time. There is evidence of the subcutaneous emphysema overlying the right lateral chest wall as well as in the anterior aspect of the right cervical region. Normal size heart. Normal mediastinum and elizabeth. Normal visualized pulmonary arteries. Normal visualized aortic arch and descending thoracic aorta. Normal visualized thoracic spine. Normal visualized ribs, clavicles, and shoulders. There is no demonstrated abnormality of the visualized soft tissue structures of the upper abdomen. RAD/Chest 1 View (Portable) IMPRESSION: Status post right-sided chest tube placement with the resolution of the right-sided pneumothorax. Subcutaneous emphysema overlying the right lateral chest wall as well as the inferior aspect of the right cervical region. Electronically Signed: Clint Grimaldo MD at 10:31 EDT ,
[2022-09-19 10:22] LABS: Differential Indicated SCAN CRITERIA MET
[2022-09-19 10:28] LABS: Anion Gap 3 (5-15); BUN 12 mg/dL (7-18); BUN/Creat Ratio 19.4 RATIO (10-20); Calcium,Total 8.8 mg/dL (8.5-10.1); Chloride 104 mmol/L (98-107); Creatinine, Serum 0.62 mg/dL (0.55-1.02); EST Glomerular Filtration Rate 105 mL/min (>60); Est Glom Filt Rate - Afr Amer 127 mL/min (>60); Estimated Creatinine Clearance 77.91 ml/min; Glucose 167 mg/dL (74-106); Sodium Level 139 mmol/L (136-145); Troponin-I HS 4 pg/mL (3.0-54.0)
[2022-09-19] MEDS: Ipratropium/Albuterol Sulfate 3 ML AMPUL.NEB INHALATION ×4 (10:31→20:57)
[2022-09-19] MEDS: Albuterol 2.5 MG/3 ML VIAL.NEB. INHALATION (10:35)
--- NOTE | 2022-09-19 10:38 | ED.VIS.DYS ---
HPI History of Present Illness Chief Complaint: Shortness of Breath PFSH PFSH Medical History Anxiety Asthma COPD (chronic obstructive pulmonary disease) Hernia Hypoxia Iatrogenic pneumothorax Left wrist fracture Migraines On home oxygen therapy Protein calorie malnutrition Smoker Home Medications albuterol sulfate 90 mcg/actuation aerosol inhaler (ProAir HFA) 1 - 2 puff inhalation Q6H PRN PRN Asthma 09/23/16 [History Last Taken 07/15/21] Allergy/AdvReac Type Severity Reaction Status Date / Time No Known Allergies Allergy Verified 06/24/18 17:26 Family History Other Heart disease Surgical History H/O wrist surgery History of hernia surgery Social History Smoking Status: Former smoker EXAM Physical Exam Const Vital Signs: 09/19/22 09:33 09/19/22 09:38 09/19/22 09:42 Temperature 96.8 F L Temperature Source Temporal Pulse Rate 111 H 109 H Respiratory Rate 16 26 H Respiratory Effort Short of Breath Labored Accessory Muscle Use Respiratory Depth Shallow Respiratory Pattern Tachypnea Blood Pressure 166/133 H 101/75 Blood Pressure Mean 144 83 Pulse Ox 97 97 Oxygen Delivery Method Non-Rebreather Non-Rebreather Oxygen Flow Rate (L/min) 15 15 09/19/22 09:50 09/19/22 09:56 09/19/22 10:07 Temperature Temperature Source Pulse Rate 112 H 111 H 130 H Respiratory Rate 21 H 28 H 22 H Respiratory Effort Respiratory Depth Respiratory Pattern Blood Pressure 131/101 H 136/99 H Blood Pressure Mean 111 111 Pulse Ox 98 97 97 Oxygen Delivery Method Non-Rebreather Non-Rebreather Non-Rebreather Oxygen Flow Rate (L/min) 15 15 15 09/19/22 10:16 09/19/22 10:23 09/19/22 10:31 Temperature Temperature Source Pulse Rate 114 H 112 H 116 H Respiratory Rate 23 H 30 H 22 H Respiratory Effort Respiratory Depth Respiratory Pattern Blood Pressure 142/98 H 134/102 H 140/90 H Blood Pressure Mean 112 112 106 Pulse Ox 97 99 97 Oxygen Delivery Method Nasal Cannula Nasal Cannula Nasal Cannula Oxygen Flow Rate (L/min) 5 5 5 09/19/22 10:47 09/19/22 10:57 09/19/22 10:15 Temperature Temperature Source Pulse Rate 110 H 107 H 120 H Respiratory Rate 27 H 23 H 25 H Respiratory Effort Respiratory Depth Respiratory Pattern Tachypnea Blood Pressure 123/86 H 123/86 H Blood Pressure Mean 98 98 Pulse Ox 92 95 Oxygen Delivery Method Nasal Cannula Nasal Cannula Oxygen Flow Rate (L/min) 5 5 09/19/22 10:31 09/19/22 11:06 09/19/22 11:13 Temperature Temperature Source Pulse Rate 110 H 110 H 102 H Respiratory Rate 28 H 28 H 22 H Respiratory Effort Respiratory Depth Respiratory Pattern Tachypnea Normal Blood Pressure 133/95 H Blood Pressure Mean 107 Pulse Ox 93 Oxygen Delivery Method Nasal Cannula Oxygen Flow Rate (L/min) 5 09/19/22 11:35 09/19/22 11:40 09/19/22 11:50 Temperature Temperature Source Pulse Rate 88 98 101 H Respiratory Rate 20 H 23 H 22 H Respiratory Effort Respiratory Depth Respiratory Pattern Tachypnea Blood Pressure 111/87 H 111/83 H Blood Pressure Mean 95 92 Pulse Ox 97 97 Oxygen Delivery Method Nasal Cannula Oxygen Flow Rate (L/min) 4 09/19/22 12:35 Temperature Temperature Source Pulse Rate 89 Respiratory Rate 21 H Respiratory Effort Respiratory Depth Respiratory Pattern Blood Pressure 118/89 H Blood Pressure Mean 98 Pulse Ox 97 Oxygen Delivery Method Nasal Cannula Oxygen Flow Rate (L/min) 5 MDM MDM MDM Narrative Medical decision making narrative: HISTORY OF PRESENT ILLNESS: 56-year-old female here with iatrogenic right-sided pneumothorax after lung biopsy. She states she is short of breath denies chest pain. Per RN brought the patient over patient also became short of breath, increased work of breathing complained of pain. X-rays obtained showed right-sided pneumothorax. REVIEW OF SYSTEMS: Pertinent positives: Chest pain, shortness of breath Pertinent negatives: Syncope PHYSICAL EXAM: Nursing triage notes reviewed, Vital signs reviewed Constitutional: please see mdm HENT: MMM Eyes: Pupils equal round and reactive to light, Extraocular muscles intact Neck: No stridor, no JVD, full neck ROM Lungs: Clear to auscultation, No wheezing or rales. No increased work of breathing, no conversational dyspnea, no accessory muscle use, no nasal flaring. No respiratory distress noted Heart: Regular rate and rhythm, No murmurs, No rubs and No gallops, 2+ distal pulses (radial, femoral, posterior tibial) in all extremities Abdomen: Soft, there is no tenderness, rigidity, rebound or guarding, no obvious peritoneal signs, no palpable pulsatile abdominal masses, no auscultated abdominal bruit : No CVAT Extremities: No edema Neuro: No focal neurological deficits, cranial nerves II through XII intact, 5/5 strength in all extremities. Intact sensation to light touch in all extremities, 2+ reflexes bilateral patella tendons. Normal gait. No ataxia. Skin: No rash or lesions noted MEDICAL DECISION MAKING: Chief Complaint: Right-sided pneumothorax External records reviewed: Factors affecting care: n asthma COPD on 4 L at baseline, Social determinants of health: none History obtained from others: Rapid response RN Consults: none [] ALL IMAGES (IF OBTAINED) HAVE BEEN PERSONALLY REVIEWED AND INTERPRETED BY MYSELF. MDM Narrative: Patient was hemodynamically stable tachycardic with diminished lung sounds bilaterally worse on the right initially. Performed a bedside ultrasound which showed decreased lung sliding on the right. Reviewed the patient's x-ray personally that was taken after she started complaining of pain in the postsurgical area. X-ray showed evidence of a large right-sided pneumothorax. Given the patient's severe distress I placed a 14-gauge Angiocath in the right chest approximately the third intercostal space in the midclavicular line. Pretty large gush of air with improvement in the patient's hemodynamics and symptomatology. After this repeat x-ray showed improvement in pneumothorax. I then placed a pigtail 8 Tajik chest tube in the right mid axillary line, at the inframammary line. please see below procedure note. Tube was lightly sutured in place to allow for chest x-ray and determine if the tube needed to be adjusted. Unfortunately the patient moved in bed and removed the tube displaced. This was concerning however the patient reported improvement in symptoms. She is not short of breath she had no chest pain she remained hemodynamically stable. Instead of placing a second tube immediately I opted to observe the patient in the emergency department and repeat an x-ray in approximately 1 hour to determine if her pneumo has returned and needs definitive care. Third chest x-ray showed a small pneumothorax. I did discuss this with the surgeon on-call Dr. Garcia them. Dr. Garcia and requested that I place a second chest tube. Please see procedure note. The patient was then admitted to internal medicine service for observation, repeat chest x-ray and general surgery evaluation. During the patient's course also obtained an EKG which showed sinus tachycardia but no obvious STEMI. Labs showed evidence of myocardial ischemia, CBC with leukocytosis, no severe anemia, no evidence of electrolyte abnormalities. VBG without significant CO2 retention. No significant anemia or thrombocytopenia noted. No evidence of microischemia negative troponin 1.Procedure: chest tube placement Indication: Venous Access Consent: verbal. Risks of bleeding, infection, and pneumothorax were explained. A time out was completed. Maximal sterile barrier technique was used including cap, gown, sterile gloves, large sheet, hand washing and chlorhexidine prep. Anesthesia: The area anesthetized with 1% lidocaine. Procedure: Made a small brian in the right mid axillary line at the fourth intercostal space/inframammary space with 11 blade. Inserted needle with 8 Hossein chest tube. Withdrew needle while inserting chest tube into proper position with audible tavares of air. Tube secured with 3-0 Ethilon suture. Xeroform dressing applied. Occlusive dressing applied. 2.Procedure: chest tube placement Indication: Venous Access Consent: verbal. Risks of bleeding, infection, and pneumothorax were explained. A time out was completed. Maximal sterile barrier technique was used including cap, gown, sterile gloves, large sheet, hand washing and chlorhexidine prep. Anesthesia: The area anesthetized with 1% lidocaine. Procedure: Made a small brian in the right mid axillary line at the fourth intercostal space/inframammary space with 11 blade. Inserted needle with 8 Hossein chest tube. Withdrew needle while inserting chest tube into proper position with audible tavares of air. Tube secured with 3-0 Ethilon suture. Xeroform dressing applied. Occlusive dressing applied. The procedure was performed by Zbigniew Lucio DO The patient and/or family, caregivers express understanding. The patient and/or family, caregivers agrees with the plan. Shared decision making: I will have a discussion with the patient and or visitors regarding risk/benefits of further testing or admission. They will be made aware of of the risk/benefits inherent in this decision they will be given the opportunity to voice understanding. Total critical care time today provided was at least 35 minutes. This excludes separately billable procedures. Critical care time (if documented) is secondary to the patient having high probability of clinically significant/life threatening deterioration in the patient's condition which required my urgent intervention. Lab Data Attestation: I reviewed the patient's lab results. Lab results narrative: EKG with sinus tachycardia, normal axis, normal, no STEMI CBC with leukocytosis, no anemia, no thrombocytopenia BMP without evidence of significant electrolyte abnormalities, no anion gap, no acute kidney injury. Troponin is negative, no evidence of myocardial ischemia Labs: Laboratory Results - last 24 hr 09/19/22 Unknown WBC 14.2 H RBC 4.30 Hgb 13.2 Hct 41.1 MCV 95.6 MCH 30.7 MCHC 32.1 RDW Std Deviation 47.5 H RDW Coeff of Dejuan 13.4 Plt Count 280 MPV 9.9 Immature Gran % (Auto) 0.300 Neut % (Auto) 52.2 Lymph % (Auto) 34.5 [place] % (Auto) 11.4 H Eos % (Auto) 1.4 Baso % (Auto) 0.2 Absolute Neuts (auto) 7.4 Absolute Lymphs (auto) 4.88 H Nucleated RBC % 0 Differential Comment COMMENT Diff Path Review May foll Sodium 139 Potassium 5.0 Chloride 104 Carbon Dioxide 32.0 Anion Gap 3 L BUN 12 Creatinine 0.62 Estim Creat Clear Calc 77.91 Est GFR (MDRD) Af Amer 127 Est GFR (MDRD) Non-Af 105 BUN/Creatinine Ratio 19.4 Glucose 167 H Calcium 8.8 Troponin I High Sens 4 Radiography Chest X-Ray - ED: Read by ED Physician Diagnostic Testing: Clinical Impression(s) from Imaging Studies Chest X-Ray 09/19/22 09:40 IMPRESSION: Small residual right-sided pneumothorax following needle decompression. Electronically Signed: Clint Grimaldo MD at 9:54 EDT , Chest X-Ray 09/19/22 10:15 IMPRESSION: Status post right-sided chest tube placement with the resolution of the right-sided pneumothorax. Subcutaneous emphysema overlying the right lateral chest wall as well as the inferior aspect of the right cervical region. Electronically Signed: Clint Grimaldo MD at 10:31 EDT , Chest X-Ray 09/19/22 11:15 IMPRESSION: Small residual loculated pneumothorax along the inferior right lateral chest wall. Subcutaneous emphysema overlying the right hemithorax and lower cervical region. The previously seen small-caliber right-sided chest tube has been. The left lung is clear. Electronically Signed: Clint Grimaldo MD at 11:55 EDT , Chest X-Ray 09/19/22 13:05 IMPRESSION: New small caliber chest tube has been placed in the inferior aspect of the right hemithorax with resolution of the pneumothorax. Slight improvement in the right subcutaneous emphysema. Electronically Signed: Clint Grimaldo MD at 13:36 EDT , Initial chest x-ray read by myself shows a right-sided 14-gauge Angiocath in proper place with improvement in pneumothorax. Repeat x-ray after chest tube showed complete resolution of right-sided pneumothorax with appropriate placement of the tube. Third chest x-ray obtained approxi-1 hour after initial showed Discharge Plan Disposition Disposition: Acute Care Hospital [facility] Discharge Date/Time: 09/19/22 14:03
--- NOTE | 2022-09-19 10:48 | ED.RN ---
CHEST TUBE PULLED OUT DURING PT REPOSITIONING. DR ALFRED NOTIFIED. PER DR ALFRED, COVERED WITH AN OCCLUSIVE DRESSING. VITALS ARE STABLE AND WILL CONTINUE TO BE MONITORED PER PROTOCOL.
--- NOTE | 2022-09-19 11:15 | RAD_ITS ---
STUDY: X-RAY CHEST REASON FOR EXAM: Female, 56 years old. SOB, PTX TECHNIQUE: Single AP portable view of the chest. COMPARISON: Comparison is made with prior study done earlier today at 10:17 AM. FINDINGS: The right-sided small caliber chest tube has been removed. Small residual loculated pneumothorax is seen along the inferior lateral aspect of the right hemithorax. There is evidence of a stable subcutaneous emphysema overlying the right lateral chest wall extending to the lower cervical region. RAD/Chest 1 View (Portable) IMPRESSION: Small residual loculated pneumothorax along the inferior right lateral chest wall. Subcutaneous emphysema overlying the right hemithorax and lower cervical region. The previously seen small-caliber right-sided chest tube has been. The left lung is clear. Electronically Signed: Clint Grimaldo MD at 11:55 EDT ,
[2022-09-19] MEDS: HYDROmorphone 0.5 MG/0.5 ML SYRINGE IV (11:40)
[2022-09-19] MEDS: Ondansetron 4 MG/2 ML Vial IV ×2 (12:43→14:18)
--- NOTE | 2022-09-19 13:05 | RAD_ITS ---
STUDY: X-RAY CHEST REASON FOR EXAM: Female, 56 years old. S/p 2nd Chest tube placement TECHNIQUE: Single AP portable view of the chest. COMPARISON: Comparison is made with prior study done earlier today at 11:19 AM. FINDINGS: A small-caliber chest tube has been placed in the lower right hemithorax. The right basilar pneumothorax as cleared. Mild right basilar atelectasis. The amount of right subcutaneous emphysema has improved. RAD/Chest 1 View (Portable) IMPRESSION: New small caliber chest tube has been placed in the inferior aspect of the right hemithorax with resolution of the pneumothorax. Slight improvement in the right subcutaneous emphysema. Electronically Signed: Clint Grimaldo MD at 13:36 EDT ,
--- NOTE | 2022-09-19 13:27 | PCM.HP.STD ---
HPI - General General Date of Admission: 09/19/22 Date of Service: 09/19/22 Chief Complaint: Right-sided chest pain HPI Narrative HEMANTH ESTRADA, is a 56 [address] underwent [address]-guided biopsy by interventional radiology on 09/19/2022. Patient did develop significant right-sided discomfort following the procedure imaging studies [id number] right-sided pneumothorax. Patient was transferred to the emergency department underwent chest tube placement. Subsequent imaging studies demonstrated resolution of left-sided pneumothorax as well as significant decrease in the size of the right-sided pneumothorax. Patient was also found to have subcutaneous emphysema. Subsequently admitted to a monitored bed for further monitoring [facility] Medical History Anxiety Asthma COPD (chronic obstructive pulmonary disease) Hernia Hypoxia Iatrogenic pneumothorax Left wrist fracture Migraines On home oxygen therapy Protein calorie malnutrition Smoker Home Medications albuterol sulfate 90 mcg/actuation aerosol inhaler (ProAir HFA) 1 - 2 puff inhalation Q6H PRN PRN Asthma 09/23/16 [History Last Taken 07/15/21] Allergy/AdvReac Type Severity Reaction Status Date / Time No Known Allergies Allergy Verified 06/24/18 17:26 Family History Other Heart disease Surgical History H/O wrist surgery History of hernia surgery Social History Smoking Status: Former smoker ROS ROS Narrative GENERAL: denies fever, chills, night sweats, weight loss, anorexia HEENT: denies headache, sinus congestion, or drainage, dysphagia RESPIRATORY: shortness of breath, dyspnea on exertion CARDIAC: denies chest pain, palpitations, orthopnea, PND GASTROINTESTINAL: denies abdominal pain, nausea, vomiting, melena, GENITOURINARY: denies dysuria, urgency, frequency, heamaturia EXTREMITY: denies swelling MUSCULOSKELETAL: denies current joint pain or tenderness NEUROLOGIC: denies focal numbness, weakness, tingling HEMATOLOGIC: denies easy bruising and/or hemorrhage INTEGUMENT: denies rashes PSYCHIATRIC: denies suicidal or homicidal ideation Vital Signs Vital Signs Vital Signs: 09/19/22 09:33 09/19/22 09:38 09/19/22 09:42 Temperature 96.8 F L Temperature Source Temporal Pulse Rate 111 H 109 H Respiratory Rate 16 26 H Respiratory Effort Short of Breath Labored Accessory Muscle Use Respiratory Depth Shallow Respiratory Pattern Tachypnea Blood Pressure 166/133 H 101/75 Blood Pressure Mean 144 83 Pulse Ox 97 97 Oxygen Delivery Method Non-Rebreather Non-Rebreather Oxygen Flow Rate (L/min) 15 15 09/19/22 09:50 09/19/22 09:56 09/19/22 10:07 Temperature Temperature Source Pulse Rate 112 H 111 H 130 H Respiratory Rate 21 H 28 H 22 H Respiratory Effort Respiratory Depth Respiratory Pattern Blood Pressure 131/101 H 136/99 H Blood Pressure Mean 111 111 Pulse Ox 98 97 97 Oxygen Delivery Method Non-Rebreather Non-Rebreather Non-Rebreather Oxygen Flow Rate (L/min) 15 15 15 09/19/22 10:16 09/19/22 10:23 09/19/22 10:31 Temperature Temperature Source Pulse Rate 114 H 112 H 116 H Respiratory Rate 23 H 30 H 22 H Respiratory Effort Respiratory Depth Respiratory Pattern Blood Pressure 142/98 H 134/102 H 140/90 H Blood Pressure Mean 112 112 106 Pulse Ox 97 99 97 Oxygen Delivery Method Nasal Cannula Nasal Cannula Nasal Cannula Oxygen Flow Rate (L/min) 5 5 5 09/19/22 10:47 09/19/22 10:57 09/19/22 10:15 Temperature Temperature Source Pulse Rate 110 H 107 H 120 H Respiratory Rate 27 H 23 H 25 H Respiratory Effort Respiratory Depth Respiratory Pattern Tachypnea Blood Pressure 123/86 H 123/86 H Blood Pressure Mean 98 98 Pulse Ox 92 95 Oxygen Delivery Method Nasal Cannula Nasal Cannula Oxygen Flow Rate (L/min) 5 5 09/19/22 10:31 09/19/22 11:06 09/19/22 11:13 Temperature Temperature Source Pulse Rate 110 H 110 H 102 H Respiratory Rate 28 H 28 H 22 H Respiratory Effort Respiratory Depth Respiratory Pattern Tachypnea Normal Blood Pressure 133/95 H Blood Pressure Mean 107 Pulse Ox 93 Oxygen Delivery Method Nasal Cannula Oxygen Flow Rate (L/min) 5 09/19/22 11:35 09/19/22 11:40 09/19/22 11:50 Temperature Temperature Source Pulse Rate 88 98 101 H Respiratory Rate 20 H 23 H 22 H Respiratory Effort Respiratory Depth Respiratory Pattern Tachypnea Blood Pressure 111/87 H 111/83 H Blood Pressure Mean 95 92 Pulse Ox 97 97 Oxygen Delivery Method Nasal Cannula Oxygen Flow Rate (L/min) 4 09/19/22 12:35 Temperature Temperature Source Pulse Rate 21 L Respiratory Rate 89 H Respiratory Effort Respiratory Depth Respiratory Pattern Blood Pressure 118/89 H Blood Pressure Mean 98 Pulse Ox 97 Oxygen Delivery Method Nasal Cannula Oxygen Flow Rate (L/min) 5 Weight Weight: 49.895 kg Body Mass Index (BMI) 18.3 Physical Exam Narrative GENERAL: cooperative HEENT: Atraumatic; normocephalic EYES; Anicteric, Normal Conjunctiva NECK; supple, normal thyroid, RESPIRATORY: Chest tube on the right side CARDIOVASCULAR: Regular S1 S2, GI: soft, normoactive bowel sounds, : No Renal angle tenderness; EXTREMITIES: No edema, no clubbing, MUSCULOSKELETAL: no muscle wasting NEURO: Awake; no lateralizing signs. SKIN: No Rash PSYCH; Flat affect Results Lab / Micro Data 09/19/22 Unknown 09/19/22 Unknown Labs: Laboratory Results - last 24 hr 09/19/22 : WBC 14.2 H, RBC 4.30, Hgb 13.2, Hct 41.1, MCV 95.6, MCH 30.7, MCHC 32.1, RDW Std Deviation 47.5 H, RDW Coeff of Dejuan 13.4, Plt Count 280, MPV 9.9, Immature Gran % (Auto) 0.300, Neut % (Auto) 52.2, Lymph % (Auto) 34.5, [place] % (Auto) 11.4 H, Eos % (Auto) 1.4, Baso % (Auto) 0.2, Absolute Neuts (auto) 7.4, Absolute Lymphs (auto) 4.88 H, Nucleated RBC % 0, Differential Comment COMMENT, Diff Path Review June foll, Sodium 139, Potassium 5.0, Chloride 104, Carbon Dioxide 32.0, Anion Gap 3 L, BUN 12, Creatinine 0.62, Estim Creat Clear Calc 77.91, Est GFR (MDRD) Af Amer 127, Est GFR (MDRD) Non-Af 105, BUN/Creatinine Ratio 19.4, Glucose 167 H, Calcium 8.8, Troponin I High Sens 4 Radiology Impression Chest X-Ray 09/19/22 09:40 IMPRESSION: Small residual right-sided pneumothorax following needle decompression. Electronically Signed: Clint Grimaldo MD at 9:54 EDT , Chest X-Ray 09/19/22 10:15 IMPRESSION: Status post right-sided chest tube placement with the resolution of the right-sided pneumothorax. Subcutaneous emphysema overlying the right lateral chest wall as well as the inferior aspect of the right cervical region. Electronically Signed: Clint Grimaldo MD at 10:31 EDT , Chest X-Ray 09/19/22 11:15 IMPRESSION: Small residual loculated pneumothorax along the inferior right lateral chest wall. Subcutaneous emphysema overlying the right hemithorax and lower cervical region. The previously seen small-caliber right-sided chest tube has been. The left lung is clear. Electronically Signed: Clint Grimaldo MD at 11:55 EDT , Assessment & Plan Assessment/Plan (1) Iatrogenic pneumothorax: PLAN: Plan Patient is a 56-year-old lady who developed pneumothorax following lung biopsy 1. Iatrogenic pneumothorax ? Following lung biopsy patient had a chest tube placed in the emergency department placed to suction. Admitted to a monitored bed for observation. 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 Pepper 2. Right upper and right lower lobe nodular densities ? Patient underwent biopsies on 09/19/2022 with complications described above 3. Overlap syndrome with asthma and COPD ? Aerosol treatments as needed 4. DVT prophylaxis - On enoxaparin Time spent in the patient's overall evaluation,decision-making process, review of diagnostic data, adjustment of management, discussion with other providers, nursing nursing and ancillary staff involved in patient's care documentation, 60 minutes Charges/Coding Visit Charges Inpatient E&M: 88147 Init Hosp L2
[2022-09-19 13:32] LABS: Blood Gas Specimen Type VEN; O2 Delivery Device Cannula; SITE PICC; VBG BASE EXCESS 3 mmol/L (-1.0-3.5); VBG Bicarbonate 29 mmol/L (22-26); VBG PO2 81 mmHg (25-40); VBG SO2 95 % (50-70); VBG TCO2 30 mmol/L (23-33); VBG pCO2 52.6 mmHg (41-51); VBG pH 7.34 (7.32-7.42)
--- NOTE | 2022-09-19 13:54 | EX.PCM.CON.S ---
Assessment & Plan Assessment/Plan (1) Iatrogenic pneumothorax: PLAN: Plan Did personally review chest x-rays. We will continue right chest tube to -20 suction on Pleur-evac. Plan to get a chest x-ray tomorrow. Patient will likely stay on suction tomorrow due to the positive airleak currently or patient may also have chest tube exchange for larger size if continued leak or pneumothorax on morning chest x-ray or shortness of breath or increased subcutaneous emphysema. Did discuss with patient and her . Currently had no further questions at this time. Korina Garcia M.D. Pager: [phone] [facility] [address] [place] [address], [facility], [address] [place] [address] Office: [phone] HPI Consult Data Date of Consult: 09/19/22 HPI Narrative Reason for Consultation: Right iatrogenic pneumothorax after biopsy HPI Narrative: HEMANTH ESTRADA, is a 56 F who presents to the ER due to iatrogenic right pneumothorax after lung biopsy. Patient had 8 Syrian percutaneous placed in the ER. The first chest tube initially fell out. Patient was watched for a bit longer in the ER and still had pneumothorax as well as subcutaneous emphysema and another 8 Syrian percutaneous chest tube was placed to look to resolve pneumothorax on chest x-ray, right lateral chest and neck subcu emphysema was still noted. Currently patient on 4 L nasal cannula?prophylactically, patient denies any shortness of breath. Patient is currently nauseated. Patient's chest tube was hooked up to the Pleur-evac which does have a continuous leak at -20. PFSH Medical History Anxiety Asthma COPD (chronic obstructive pulmonary disease) Hernia Hypoxia Iatrogenic pneumothorax Left wrist fracture Migraines On home oxygen therapy Protein calorie malnutrition Smoker Home Medications albuterol sulfate 90 mcg/actuation aerosol inhaler (ProAir HFA) 1 - 2 puff inhalation Q6H PRN PRN Asthma 09/23/16 [History Last Taken 07/15/21] Allergy/AdvReac Type Severity Reaction Status Date / Time No Known Allergies Allergy Verified 06/24/18 17:26 Family History Other Heart disease Surgical History H/O wrist surgery History of hernia surgery Social History Smoking Status: Former smoker ROS Constitutional Constitutional: Denies anorexia Eyes Eyes: Denies loss of vision ENT HEENT: Denies dysphagia Cardiovascular Cardiovascular: Reports dyspnea; Denies palpitations Respiratory/Chest Respiratory/Chest: Denies cough or shortness of breath at rest Gastrointestinal Gastrointestinal: Denies abdominal pain Genitourinary Genitourinary: Denies dysuria Musculoskeletal Musculoskeletal: Denies joint swelling Integumentary Integumentary: Denies jaundice Neurologic Neurologic: Denies focal weakness Psychiatric Psychiatric: Denies anxiety or depression Endocrine Endocrinology: Denies flushing Hematologic/Lymphatic Hematologic/Lymphatic: Denies easy bleeding Physical Exam Const alert, oriented x3 and no apparent distress HEENT normocephalic and head/scalp atraumatic Resp normal respiratory effort Resp Narrative: Right percutaneous chest tube in place, subcutaneous emphysema right lateral chest wall into the right neck, right lateral back. Chest tube positive leak to -29 Pleur-evac Effort and Inspection: able to speak in complete sentences Cardio regular rate GI soft to palpation and non-tender; Negative for non-distended Palpation: Negative for guarding Extremity no clubbing, cyanosis or edema Neuro CN's II-XII intact bilaterally Psych mental status grossly normal Lab / Micro Data 09/19/22 Unknown 09/19/22 Unknown Labs: Laboratory Results - last 24 hr 09/19/22 : WBC 14.2 H, RBC 4.30, Hgb 13.2, Hct 41.1, MCV 95.6, MCH 30.7, MCHC 32.1, RDW Std Deviation 47.5 H, RDW Coeff of Dejuan 13.4, Plt Count 280, MPV 9.9, Immature Gran % (Auto) 0.300, Neut % (Auto) 52.2, Lymph % (Auto) 34.5, [place] % (Auto) 11.4 H, Eos % (Auto) 1.4, Baso % (Auto) 0.2, Absolute Neuts (auto) 7.4, Absolute Lymphs (auto) 4.88 H, Nucleated RBC % 0, Differential Comment COMMENT, Diff Path Review May foll, Sodium 139, Potassium 5.0, Chloride 104, Carbon Dioxide 32.0, Anion Gap 3 L, BUN 12, Creatinine 0.62, Estim Creat Clear Calc 77.91, Est GFR (MDRD) Af Amer 127, Est GFR (MDRD) Non-Af 105, BUN/Creatinine Ratio 19.4, Glucose 167 H, Calcium 8.8, Troponin I High Sens 4 ABG Data ABG results: ABG 09/19/22 13:27 Specimen Type MICHAELLE Sample Site PICC VBG pH 7.34 VBG pO2 81 H VBG HCO3 29 H VBG Total CO2 30 VBG O2 Sat (Calc) 95 H VBG Base Excess 3 POC Mix VBG pCO2 Pt Tmp 52.6 H O2 Delivery Device Cannula Liter Flow 5.0 Radiology Impression Chest X-Ray 09/19/22 09:40 IMPRESSION: Small residual right-sided pneumothorax following needle decompression. Electronically Signed: Clint Grimaldo MD at 9:54 EDT , Chest X-Ray 09/19/22 10:15 IMPRESSION: Status post right-sided chest tube placement with the resolution of the right-sided pneumothorax. Subcutaneous emphysema overlying the right lateral chest wall as well as the inferior aspect of the right cervical region. Electronically Signed: Clint Grimaldo MD at 10:31 EDT , Chest X-Ray 09/19/22 11:15 IMPRESSION: Small residual loculated pneumothorax along the inferior right lateral chest wall. Subcutaneous emphysema overlying the right hemithorax and lower cervical region. The previously seen small-caliber right-sided chest tube has been. The left lung is clear. Electronically Signed: Clint Grimaldo MD at 11:55 EDT , Chest X-Ray 09/19/22 13:05 IMPRESSION: New small caliber chest tube has been placed in the inferior aspect of the right hemithorax with resolution of the pneumothorax. Slight improvement in the right subcutaneous emphysema. Electronically Signed: Clint Grimaldo MD at 13:36 EDT , Charges/Coding Visit Charges Inpatient E&M: 38647 Init Hosp L3
[2022-09-19] MEDS: 0.9% Saline Lock 10 ML Syringe IV (14:20)
[2022-09-19] MEDS: proMETHazine 25 MG/ML Syringe 12.5 MG IM (17:46)
[2022-09-19] MEDS: Acetaminophen 500 MG Tablet 1000 MG PO (20:40)
[2022-09-20] VITALS (7 sets, daily range): BP systolic 106–122; BP diastolic 70–82; PULSE 99–122; RESP 18–20; TEMP 36.1–36.9; O2SAT 95–100
--- NOTE | 2022-09-20 05:28 | RAD_ITS ---
STUDY: X-RAY CHEST REASON FOR EXAM: Female, 56 years old. chest tube-- -- portable-keep pt on suction TECHNIQUE: Single AP portable view of the chest. COMPARISON: 09/19/2022 FINDINGS: Interval retraction of the right-sided small bore thoracostomy tube with increased subcutaneous emphysema but no pneumothorax. The lungs are clear and expanded. There is no demonstrated pleural abnormality. Normal size heart. Normal mediastinum and elizabeth. Normal visualized pulmonary arteries. Normal visualized aortic arch and descending thoracic aorta. Normal visualized thoracic spine. Normal visualized ribs, clavicles, and shoulders. There is no demonstrated abnormality of the visualized soft tissue structures of the upper abdomen. RAD/Chest 1 View (Portable) IMPRESSION: Interval retraction of right-sided smallbore thoracostomy tube with increased subcutaneous emphysema but no pneumothorax. Electronically Signed: Galileo Roy MD at 10:17 EDT ,
[2022-09-20] MEDS: Acetaminophen 500 MG Tablet 1000 MG PO ×3 (06:01→21:02)
[2022-09-20 06:25] LABS: Absolute Lymphocyte Count 2.09 X10^3/uL (0.83-4.51); Absolute Neutrophil Count 8.2 X10^3/uL (2.0-7.7); Basophil# 0.02 X10^3/uL; Basophil% 0.2 % (0-1); Eosinophil# 0.18 X10^3/uL; Eosinophils% 1.5 % (0-5); Hematocrit 39.6 % (37-47); Hemoglobin 12.8 g/dL (12.0-15.0); Lymphocyte # 2.09 X10^3/ul (0.83-4.51); Lymphocyte % 17.8 % (19-41); Mean Corp Hgb Conc 32.3 g/dL (32-36); Mean Corpuscular Hgb 30.3 pg (27.0-32.0); Mean Corpuscular Volume 93.8 fL (81-99); Mean Platelet Vol. 9.6 fl (6.2-12.0); Monocyte# 1.22 X10^3/uL; Monocyte% 10.4 % (0-10); NRBC Flagged by Analyzer 0 % (0-5); Neutrophil # 8.21 X10^3/uL (2.7-7.7); Neutrophil % 69.8 % (47-70); Platelet Count 236 K/mm3 (150-450); RBC Distribution Width CV 13.3 % (11.6-14.6); RBC Distribution Width SD 45.9 fl (35.1-43.9); Red Blood Count 4.22 M/mm3 (4.2-5.4); White Blood Count 11.8 K/mm3 (4.4-11.0)
[2022-09-20] MEDS: Ipratropium/Albuterol Sulfate 3 ML AMPUL.NEB INHALATION ×3 (06:45→19:13)
--- NOTE | 2022-09-20 07:08 | PCM.PN.HOSP ---
Reason for Visit Reason for Visit: Diagnoses Postprocedural pneumothorax (09/19/22) Subjective Subjective Patient seen appears comfortable this AM. Review of patient's chest x-ray (by myself) did demonstrate reexpansion of the lung. Patient however has an air leak and suction will remain in place. Case discussed with general surgeon Dr. Adams. Patient primary motor vehicle light assembler Dr. Colon had also been informed the day prior Objective Data Objective Data Vital Signs: Vital Signs Temp Pulse Resp BP Pulse Ox O2 Del Method O2 Flow Rate 98.1 F 100 18 106/80 97 Nasal Cannula 4 09/20/22 03:00 09/20/22 06:46 09/20/22 06:46 09/20/22 03:00 09/20/22 06:46 09/20/22 06:46 09/20/22 06:46 Oxygen Flow Rate (L/min) 4 Oxygen Delivery Method Nasal Cannula Weight: 50.9 kg Body Mass Index (BMI) 21.2 Intake & Output: Intake and Output for Last 24 Hours 09/18/22 09/19/22 09/20/22 23:59 23:59 23:59 Intake Total 240 / 540 500 / 500 Output Total 10 / 10 Balance 240 / 540 490 / 490 Lab / Micro Data 09/20/22 05:51 09/20/22 05:51 Labs: Laboratory Results - last 24 hr 09/19/22 : WBC 14.2 H, RBC 4.30, Hgb 13.2, Hct 41.1, MCV 95.6, MCH 30.7, MCHC 32.1, RDW Std Deviation 47.5 H, RDW Coeff of Dejuan 13.4, Plt Count 280, MPV 9.9, Immature Gran % (Auto) 0.300, Neut % (Auto) 52.2, Lymph % (Auto) 34.5, [place] % (Auto) 11.4 H, Eos % (Auto) 1.4, Baso % (Auto) 0.2, Absolute Neuts (auto) 7.4, Absolute Lymphs (auto) 4.88 H, Nucleated RBC % 0, Differential Comment COMMENT, Diff Path Review May foll, Sodium 139, Potassium 5.0, Chloride 104, Carbon Dioxide 32.0, Anion Gap 3 L, BUN 12, Creatinine 0.62, Estim Creat Clear Calc 77.91, Est GFR (MDRD) Af Amer 127, Est GFR (MDRD) Non-Af 105, BUN/Creatinine Ratio 19.4, Glucose 167 H, Calcium 8.8, Troponin I High Sens 4 09/20/22 05:51: WBC 11.8 H, RBC 4.22, Hgb 12.8, Hct 39.6, MCV 93.8, MCH 30.3, MCHC 32.3, RDW Std Deviation 45.9 H, RDW Coeff of Dejuan 13.3, Plt Count 236, MPV 9.6, Immature Gran % (Auto) 0.300, Neut % (Auto) 69.8, Lymph % (Auto) 17.8 L, [place] % (Auto) 10.4 H, Eos % (Auto) 1.5, Baso % (Auto) 0.2, Absolute Neuts (auto) 8.2 H, Absolute Lymphs (auto) 2.09, Nucleated RBC % 0 ABG Data ABG results: ABG 09/19/22 13:27 Specimen Type MICHAELLE Sample Site PICC VBG pH 7.34 VBG pO2 81 H VBG HCO3 29 H VBG Total CO2 30 VBG O2 Sat (Calc) 95 H VBG Base Excess 3 POC Mix VBG pCO2 Pt Tmp 52.6 H O2 Delivery Device Cannula Liter Flow 5.0 Radiography Diagnostic Testing: Radiology Impression Chest X-Ray 09/19/22 09:40 IMPRESSION: Small residual right-sided pneumothorax following needle decompression. Electronically Signed: Clint Grimaldo MD at 9:54 EDT , Chest X-Ray 09/19/22 10:15 IMPRESSION: Status post right-sided chest tube placement with the resolution of the right-sided pneumothorax. Subcutaneous emphysema overlying the right lateral chest wall as well as the inferior aspect of the right cervical region. Electronically Signed: Clint Grimaldo MD at 10:31 EDT , Chest X-Ray 09/19/22 11:15 IMPRESSION: Small residual loculated pneumothorax along the inferior right lateral chest wall. Subcutaneous emphysema overlying the right hemithorax and lower cervical region. The previously seen small-caliber right-sided chest tube has been. The left lung is clear. Electronically Signed: Clint Grimaldo MD at 11:55 EDT , Chest X-Ray 09/19/22 13:05 IMPRESSION: New small caliber chest tube has been placed in the inferior aspect of the right hemithorax with resolution of the pneumothorax. Slight improvement in the right subcutaneous emphysema. Electronically Signed: Clint Grimaldo MD at 13:36 EDT , Physical Exam Narrative GENERAL: cooperative HEENT: Atraumatic; normocephalic EYES; Anicteric, Normal Conjunctiva NECK; supple, normal thyroid, RESPIRATORY: Chest tube on the right side CARDIOVASCULAR: Regular S1 S2, GI: soft, normoactive bowel sounds, : No Renal angle tenderness; EXTREMITIES: No edema, no clubbing, MUSCULOSKELETAL: no muscle wasting NEURO: Awake; no lateralizing signs. SKIN: No Rash PSYCH; Flat affect Assessment & Plan Assessment/Plan (1) Iatrogenic pneumothorax: PLAN: Plan Patient is a 56-year-old lady who developed pneumothorax following lung biopsy 1. Iatrogenic pneumothorax ? Following lung biopsy patient had a chest tube placed in the emergency department placed to suction. Admitted to a monitored bed for observation. As part of her management consult was placed to general surgery as well as patient's motor vehicle light assembler Dr. Pepper ? 09/20/2022;Review of patient's chest x-ray (by myself) did demonstrate reexpansion of the lung. Patient however has an air leak and suction will remain in place. Case discussed with general surgeon Dr. Adams. Patient primary motor vehicle light assembler Dr. Colon had also been informed the day prior 2. Subcutaneous emphysema ? Iatrogenic following patient CT-guided biopsy we will continue conservative management 3. Right upper and right lower lobe nodular densities ? Patient underwent biopsies on 09/19/2022 with complications described above 4. Overlap syndrome with asthma and COPD ? Aerosol treatments as needed 5. DVT prophylaxis - On enoxaparin Time spent in the patient's overall evaluation,decision-making process, review of diagnostic data, adjustment of management, discussion with other providers, nursing nursing and ancillary staff involved in patient's care documentation,50 minutes Charges/Coding Visit Charges Inpatient E&M: 70428 [facility] Hosp L3
[2022-09-20 07:12] LABS: Anion Gap 7 (5-15); BUN 15 mg/dL (7-18); BUN/Creat Ratio 34.9 RATIO (10-20); Calcium,Total 8.4 mg/dL (8.5-10.1); Chloride 101 mmol/L (98-107); Creatinine, Serum 0.43 mg/dL (0.55-1.02); EST Glomerular Filtration Rate 160 mL/min (>60); Est Glom Filt Rate - Afr Amer 193 mL/min (>60); Estimated Creatinine Clearance 107.61 ml/min; Glucose 87 mg/dL (74-106); Potassium 3.9 mmol/L (3.5-5.1); Sodium Level 135 mmol/L (136-145)
--- NOTE | 2022-09-20 08:56 | PN.SURG_ITS ---
Subjective Subjective Patient's chest x-ray this morning shows lung still expanded may be a little less subcutaneous emphysema. Objective Data Objective Data Vital Signs: Vital Signs Temp Pulse Resp BP Pulse Ox O2 Del Method O2 Flow Rate 98.1 F 100 18 106/80 97 Nasal Cannula 4 09/20/22 03:00 09/20/22 06:46 09/20/22 06:46 09/20/22 03:00 09/20/22 06:46 09/20/22 06:46 09/20/22 06:46 Oxygen Flow Rate (L/min) 4 Oxygen Delivery Method Nasal Cannula Weight: 112 lb 3.445 oz Body Mass Index (BMI) 21.2 Intake & Output: Intake and Output for Last 24 Hours 09/18/22 09/19/22 09/20/22 23:59 23:59 23:59 Intake Total 240 / 540 500 / 500 Output Total 10 / 10 Balance 240 / 540 490 / 490 Lab / Micro Data 09/20/22 05:51 09/20/22 05:51 Labs: Laboratory Results - last 24 hr 09/19/22 : WBC 14.2 H, RBC 4.30, Hgb 13.2, Hct 41.1, MCV 95.6, MCH 30.7, MCHC 32.1, RDW Std Deviation 47.5 H, RDW Coeff of Dejuan 13.4, Plt Count 280, MPV 9.9, Immature Gran % (Auto) 0.300, Neut % (Auto) 52.2, Lymph % (Auto) 34.5, [place] % (Auto) 11.4 H, Eos % (Auto) 1.4, Baso % (Auto) 0.2, Absolute Neuts (auto) 7.4, Absolute Lymphs (auto) 4.88 H, Nucleated RBC % 0, Differential Comment COMMENT, Diff Path Review May foll, Sodium 139, Potassium 5.0, Chloride 104, Carbon Dioxide 32.0, Anion Gap 3 L, BUN 12, Creatinine 0.62, Estim Creat Clear Calc 77.91, Est GFR (MDRD) Af Amer 127, Est GFR (MDRD) Non-Af 105, BUN/Creatinine Ratio 19.4, Glucose 167 H, Calcium 8.8, Troponin I High Sens 4 09/20/22 05:51: WBC 11.8 H, RBC 4.22, Hgb 12.8, Hct 39.6, MCV 93.8, MCH 30.3, MCHC 32.3, RDW Std Deviation 45.9 H, RDW Coeff of Dejuan 13.3, Plt Count 236, MPV 9.6, Immature Gran % (Auto) 0.300, Neut % (Auto) 69.8, Lymph % (Auto) 17.8 L, [place] % (Auto) 10.4 H, Eos % (Auto) 1.5, Baso % (Auto) 0.2, Absolute Neuts (auto) 8.2 H, Absolute Lymphs (auto) 2.09, Nucleated RBC % 0, Sodium 135 L, Potassium 3.9, Chloride 101, Carbon Dioxide 27.0, Anion Gap 7, BUN 15, Creatinine 0.43 L, Estim Creat Clear Calc 107.61, Est GFR (MDRD) Af Amer 193, Est GFR (MDRD) Non-Af 160, BUN/Creatinine Ratio 34.9 H, Glucose 87, Calcium 8.4 L ABG Data ABG results: ABG 09/19/22 13:27 Specimen Type MICHAELLE Sample Site PICC VBG pH 7.34 VBG pO2 81 H VBG HCO3 29 H VBG Total CO2 30 VBG O2 Sat (Calc) 95 H VBG Base Excess 3 POC Mix VBG pCO2 Pt Tmp 52.6 H O2 Delivery Device Cannula Liter Flow 5.0 Radiography Diagnostic Testing: Radiology Impression Chest X-Ray 09/19/22 09:40 IMPRESSION: Small residual right-sided pneumothorax following needle decompression. Electronically Signed: Clint Grimaldo MD at 9:54 EDT , Chest X-Ray 09/19/22 10:15 IMPRESSION: Status post right-sided chest tube placement with the resolution of the right-sided pneumothorax. Subcutaneous emphysema overlying the right lateral chest wall as well as the inferior aspect of the right cervical region. Electronically Signed: Clint Grimaldo MD at 10:31 EDT , Chest X-Ray 09/19/22 11:15 IMPRESSION: Small residual loculated pneumothorax along the inferior right lateral chest wall. Subcutaneous emphysema overlying the right hemithorax and lower cervical region. The previously seen small-caliber right-sided chest tube has been. The left lung is clear. Electronically Signed: Clint Grimaldo MD at 11:55 EDT , Chest X-Ray 09/19/22 13:05 IMPRESSION: New small caliber chest tube has been placed in the inferior aspect of the right hemithorax with resolution of the pneumothorax. Slight improvement in the right subcutaneous emphysema. Electronically Signed: Clint Grimaldo MD at 13:36 EDT , Physical Exam Narrative Continued subcutaneous emphysema right chest wall to the right neck appears similar to yesterday Const oriented x3 and no apparent distress Resp normal respiratory effort Resp Narrative: Right chest tube to -20 suction, no air leak with coughing Cardio regular rate Assessment & Plan Assessment/Plan (1) Iatrogenic pneumothorax: PLAN: Plan Did personally review chest x-rays-lung looks reexpanded also less subcutaneous emphysema, no air leak on exam We will continue right chest tube to -20 suction on Pleur-evac today. Plan to get a chest x-ray tomorrow a.m. and may change to waterseal in the morning Korina Garcia M.D. Pager: [phone] [facility] [address] [place] [address], [facility], [address] [place] [address] Office: [phone] Charges/Coding Visit Charges Inpatient E&M: 86715 Subs Hosp L2
[2022-09-20] MEDS: Enoxaparin 40 MG/0.4 ML Syringe SC (08:59)
--- NOTE | 2022-09-20 12:58 | NURSING ---
Report given to Jennifer WEBER, will assume care of pt at this time
[2022-09-20] MEDS: 0.9% Saline Lock 10 ML Syringe IV (15:33)
--- NOTE | 2022-09-20 16:40 | CASEMGMT ---
TIA SYLVESTER PHARMACY AFFAIRS ASSISTANT CM to room to meet with patient for initial transition planning/care coordination assessment. TIA SYLVESTER introduced self and role at [facility].? Pt voices understanding and consents to assessment at this time.? Pt resting in bed in no distress at this time.? Pt is A/O at this time and answers all questions appropriately.?? Care providers, pharmacy, and demographics verified/updated at this time. PCP: Dr Brown Specialists: Dr Pepper-pulmonology Preferred [facility]acy: [facility] Insurance: MMO Prescription Benefit:?yes LNOK: , Dann Living Arrangements: Lives w/ in one-story home w/3 steps to enter. Independent. Transportation: DME: States has the following DME:?Has O2 through [employer] @ 4 L/M continuously, pulse ox, nebulizer, and BP cuff. Pt also has a walker that she does not use. ? Pt states no need for further DME at this time.? HHC/SNF: No hx of SNF but has had HHC in the past. Pt declines wanting HHC. Palliative Care: Pt qualifies for Palliative care per [facility] screening tool. Discussed Palliative care w/pt and she declines wanting referral at this time. She states was given info on Palliative last year and still has the information. Pt wishes to return home and states has no concerns with going home at time of discharge.? Pt voices no further concerns/needs at this time.? PLAN: ?Home. Pipe VALDES RN, CM
[2022-09-21] VITALS (9 sets, daily range): BP systolic 131–159; BP diastolic 87–101; PULSE 90–105; RESP 16–20; TEMP 36.4–36.8; O2SAT 93–99
[2022-09-21] MEDS: Albuterol 2.5 MG/3 ML VIAL.NEB. INHALATION (03:49)
--- NOTE | 2022-09-21 05:21 | RAD_ITS ---
INDICATION: chest tube -- portable--keep pt on suction EXAMINATION/TECHNIQUE: X-RAY - XR Chest 1 View COMPARISON: Chest x-ray from one day prior FINDINGS: LINES/DEVICES: Small gauge right pleural catheter remains. LUNGS: Stable mild right basilar atelectatic changes with slightly elevated right hemidiaphragm. No sizable pleural effusion. Stable small residual right pneumothorax. MEDIASTINUM AND CARDIOVASCULAR STRUCTURES: Heart size within normal limits. Mediastinal contours unremarkable. BONES AND SOFT TISSUES: Right greater than left chest wall subcutaneous emphysema grossly stable. Osseous structures are stable. RAD/Chest 1 View (Portable) IMPRESSION: Stable exam with small residual right pneumothorax. Electronically Signed: Dann Alston MD at 7:08 EDT ,
[2022-09-21] MEDS: Acetaminophen 500 MG Tablet 1000 MG PO ×3 (05:56→21:00)
[2022-09-21] MEDS: Ipratropium/Albuterol Sulfate 3 ML AMPUL.NEB INHALATION ×3 (06:34→19:18)
--- NOTE | 2022-09-21 07:41 | PCM.PN.HOSP ---
Reason for Visit Reason for Visit: Diagnoses Postprocedural pneumothorax (09/19/22) Subjective Subjective Patient seen reveals uneventful night. No longer has any leak. Plan is for repeat x-ray in a.m. Objective Data Objective Data Vital Signs: Vital Signs Temp Pulse Resp BP Pulse Ox O2 Del Method O2 Flow Rate 97.5 F L 90 18 159/101 H 95 Nasal Cannula 4 09/21/22 03:00 09/21/22 06:34 09/21/22 06:34 09/21/22 03:00 09/21/22 06:34 09/21/22 06:34 09/21/22 06:34 Oxygen Flow Rate (L/min) 4 Oxygen Delivery Method Nasal Cannula Weight: 50.9 kg Body Mass Index (BMI) 21.2 Intake & Output: Intake and Output for Last 24 Hours 09/19/22 09/20/22 09/21/22 23:59 23:59 23:59 Intake Total 240 / 540 750 / 750 Output Total Balance 240 / 540 720 / 720 -10 Lab / Micro Data 09/20/22 05:51 09/20/22 05:51 Radiography Diagnostic Testing: Radiology Impression Chest X-Ray 09/20/22 05:28 IMPRESSION: Interval retraction of right-sided smallbore thoracostomy tube with increased subcutaneous emphysema but no pneumothorax. Electronically Signed: Galileo Roy MD at 10:17 EDT , Chest X-Ray 09/21/22 05:21 IMPRESSION: Stable exam with small residual right pneumothorax. Electronically Signed: Dann Alston MD at 7:08 EDT , Physical Exam Narrative GENERAL: cooperative HEENT: Atraumatic; normocephalic EYES; Anicteric, Normal Conjunctiva NECK; supple, normal thyroid, RESPIRATORY: Chest tube on the right side CARDIOVASCULAR: Regular S1 S2, GI: soft, normoactive bowel sounds, : No Renal angle tenderness; EXTREMITIES: No edema, no clubbing, MUSCULOSKELETAL: no muscle wasting NEURO: Awake; no lateralizing signs. SKIN: No Rash PSYCH; Flat affect Assessment & Plan Assessment/Plan (1) Iatrogenic pneumothorax: PLAN: Plan Patient is a 56-year-old lady who developed pneumothorax following lung biopsy 1. Iatrogenic pneumothorax ? Following lung biopsy patient had a chest tube placed in the emergency department placed to suction. Admitted to a monitored bed for observation. As part of her management consult was placed to general surgery as well as patient's return to service inspector Dr. Pepper ? 09/20/2022;Review of patient's chest x-ray (by myself) did demonstrate reexpansion of the lung. Patient however has an air leak and suction will remain in place. Case discussed with general surgeon Dr. Adams. Patient primary return to service inspector Dr. Colon had also been informed the day prior ? 09/21/2022: No longer has any leak. Plan is for repeat x-ray in a.m. 2. Subcutaneous emphysema ? Iatrogenic following patient CT-guided biopsy we will continue conservative management 3. Right upper and right lower lobe nodular densities ? Patient underwent biopsies on 09/19/2022 with complications described above 4. Overlap syndrome with asthma and COPD ? Aerosol treatments as needed 5. DVT prophylaxis - On enoxaparin Time spent in the patient's overall evaluation,decision-making process, review of diagnostic data, adjustment of management, discussion with other providers, nursing nursing and ancillary staff involved in patient's care documentation, 35 minutes Charges/Coding Visit Charges Inpatient E&M: 00725 Subs Hosp L2
--- NOTE | 2022-09-21 08:44 | PCM.PN.SRG ---
Subjective Subjective Patient has no complaints. Yesterday patient did have an issue with the connection between the chest tube in the Pleur-evac as it was loose thus causing a perceived leak. Last night when I saw her about 9 PM there is again no leak and the connection was taped together with clear OpSite. Objective Data Objective Data Vital Signs: Vital Signs Temp Pulse Resp BP Pulse Ox O2 Del Method O2 Flow Rate 97.5 F L 90 18 159/101 H 95 Nasal Cannula 4 09/21/22 03:00 09/21/22 06:34 09/21/22 06:34 09/21/22 03:00 09/21/22 06:34 09/21/22 06:34 09/21/22 06:34 Oxygen Flow Rate (L/min) 4 Oxygen Delivery Method Nasal Cannula Weight: 112 lb 3.445 oz Body Mass Index (BMI) 21.2 Intake & Output: Intake and Output for Last 24 Hours 09/19/22 09/20/22 09/21/22 23:59 23:59 23:59 Intake Total 240 / 540 750 / 750 Output Total Balance 240 / 540 720 / 720 -10 Lab / Micro Data 09/20/22 05:51 09/20/22 05:51 Radiography Diagnostic Testing: Radiology Impression Chest X-Ray 09/20/22 05:28 IMPRESSION: Interval retraction of right-sided smallbore thoracostomy tube with increased subcutaneous emphysema but no pneumothorax. Electronically Signed: Galileo Roy MD at 10:17 EDT , Chest X-Ray 09/21/22 05:21 IMPRESSION: Stable exam with small residual right pneumothorax. Electronically Signed: Dann Alston MD at 7:08 EDT , Physical Exam Narrative Continue subcutaneous emphysema right chest wall, right neck, left neck Const oriented x3 and no apparent distress Resp normal respiratory effort Resp Narrative: Right chest tube to -20 suction, no air leak with coughing Cardio regular rate Assessment & Plan Assessment/Plan (1) Iatrogenic pneumothorax: PLAN: Plan Did on chest x-ray. Maybe a little less subcutaneous emphysema, no leak on exam--questional issue about the connection between the chest tube in the Pleur-evac yesterday we will keep on suction today. We will continue right chest tube to -20 suction on Pleur-evac. Plan to get a chest x-ray tomorrow a.m. and may change to waterseal in the morning tomorrow. Korina Garcia M.D. Pager: [phone] [facility] [address] [place] [address], [facility], [address] [place] [id number] Office: [phone] Charges/Coding Visit Charges Inpatient E&M: 49515 Subs Hosp L2
[2022-09-21] MEDS: Enoxaparin 40 MG/0.4 ML Syringe SC (09:40)
[2022-09-22 03:09] VITALS: BP 138/98; PULSE 94; RESP 16; TEMP 36.9; O2SAT 99
[2022-09-22] MEDS: Acetaminophen 500 MG Tablet 1000 MG PO ×2 (05:13→14:47)
[2022-09-22 05:50] VITALS: PULSE 89; RESP 18
[2022-09-22] MEDS: Ipratropium/Albuterol Sulfate 3 ML AMPUL.NEB INHALATION ×2 (05:50→12:00)
--- NOTE | 2022-09-22 05:55 | RAD_ITS ---
EXAM: XR CHEST, 1 VIEW CLINICAL INDICATION: chest tube -- portable TECHNIQUE: Frontal view of the chest. 5:08 AM. COMPARISON: Previous chest radiograph of 09/21/2022. FINDINGS: LUNGS AND PLEURAL SPACES: Right apical pneumothorax shows subtotal resolution with only a trace of pneumothorax visible at the right apex, with associated pleural line. Minimal hazy atelectasis noted in the right lower lung, improved. Left lung is clear. No significant pleural effusion. HEART: Heart size remains within normal limits. Normal pulmonary vascularity. MEDIASTINUM: Central airways and mediastinal contour are unremarkable. BONES/JOINTS: No acute osseous abnormality identified allowing for the subcutaneous emphysema overlying the right ribs. SOFT TISSUES: Extensive subcutaneous emphysema again noted about the right ribs, extending into the right axilla and right lower neck, mildly improved. TUBES, LINES AND DEVICES: Small caliber right chest tube remains in place, unchanged in position. RAD/Chest 1 View (Portable) IMPRESSION: 1. Subtotal resolution of the right pneumothorax. 2. Mild decrease in subcutaneous emphysema. 3. Stable positioning of the small caliber right chest tube. Electronically Signed: Cyrus Cardona MD at 5:33 EDT ,
--- NOTE | 2022-09-22 06:38 | PN.SURG_ITS ---
Subjective Subjective Patient's no current complaints, no leak on Pleur-evac with suction, x-ray shows no pneumothorax Objective Data Objective Data Vital Signs: Vital Signs Temp Pulse Resp BP Pulse Ox O2 Del Method O2 Flow Rate 98.4 F 89 18 138/98 H 99 Nasal Cannula 4 09/22/22 03:09 09/22/22 05:50 09/22/22 05:50 09/22/22 03:09 09/22/22 03:09 09/22/22 03:19 09/22/22 03:19 Oxygen Flow Rate (L/min) 4 Oxygen Delivery Method Nasal Cannula Weight: 112 lb 3.445 oz Body Mass Index (BMI) 21.2 Intake & Output: Intake and Output for Last 24 Hours 09/20/22 09/21/22 09/22/22 23:59 23:59 23:59 Intake Total 750 / 750 500 / 500 Output Total 160 / 160 Balance 720 / 720 470 / 470 -160 / -160 Lab / Micro Data 09/20/22 05:51 09/20/22 05:51 Radiography Diagnostic Testing: Radiology Impression Chest X-Ray 09/21/22 05:21 IMPRESSION: Stable exam with small residual right pneumothorax. Electronically Signed: Dann Alston MD at 7:08 EDT , Chest X-Ray 09/22/22 05:55 IMPRESSION: 1. Subtotal resolution of the right pneumothorax. 2. Mild decrease in subcutaneous emphysema. 3. Stable positioning of the small caliber right chest tube. Electronically Signed: Cyrus Cardona MD at 5:33 EDT , Physical Exam Narrative Continue subcutaneous emphysema right chest wall, right neck, left neck--slightly improved Const oriented x3 and no apparent distress Resp normal respiratory effort Resp Narrative: Right chest tube to -20 suction, no air leak with coughing--- changed to waterseal Cardio regular rate Assessment & Plan Assessment/Plan (1) Iatrogenic pneumothorax: PLAN: Plan Did on chest x-ray. Maybe a little less subcutaneous emphysema, no leak on exam--changed to waterseal today We will continue right chest tube to waterseal on Pleur-evac. Plan to get a chest x-ray tomorrow a.m. and if no pneumothorax patient may be able to have the tube removed. Dr. Camp is covering tomorrow. Korina Garcia M.D. Pager: [phone] [facility] [address] [place] [address], [facility], [address] [place] [address] Office: [phone] Charges/Coding Visit Charges Inpatient E&M: 58276 Subs Hosp L2
[2022-09-22 08:30] VITALS: O2SAT 97
[2022-09-22 09:10] VITALS: BP 134/91; PULSE 98; RESP 20; TEMP 36.7; O2SAT 97
[2022-09-22 09:34] LABS: Pathologist Review Reviewed
[2022-09-22] MEDS: Enoxaparin 40 MG/0.4 ML Syringe SC (10:06)
--- NOTE | 2022-09-22 10:10 | CASEMGMT ---
TIA SYLVESTER NOTE: TIA SYLVESTER spoke w/Lizeth @ [facility], [place] to discuss options of pt getting smaller portability instead of the e-tank. Per Lizeth, the mini portable tanks that pt can carry would only last for about 40 min d/t she is @ 4 l/m. Lizeth states, if pt goes through 8 E-tanks a month for 3 months consecutively, then she would qualify for a POC and then would also need an order for a POC at that time. Pt made aware of same. Questions answered. Pt voices appreciation. Pipe BUCHANANN TIA CM
[2022-09-22 12:00] VITALS: PULSE 99; RESP 20
--- NOTE | 2022-09-22 12:00 | RAD_ITS ---
STUDY: X-RAY CHEST REASON FOR EXAM: Female, 56 years old. Chest tube -- ok for radiology- pt on waterseal TECHNIQUE: Single AP portable view of the chest. COMPARISON: Comparison is made with prior study dated September 22, 2022 at 5:08 AM. FINDINGS: A small caliber right-sided chest tube is seen. This is unchanged. No evidence of pneumothorax at this time. Residual blunting of the right costophrenic angle. Normal size heart. Normal mediastinum and elizabeth. Normal visualized pulmonary arteries. Normal visualized aortic arch and descending thoracic aorta. Normal visualized thoracic spine. Normal visualized ribs, clavicles, and shoulders. Stable subcutaneous emphysema overlying the lateral chest wall and lower cervical region bilaterally. RAD/Chest 1 View IMPRESSION: No evidence of pneumothorax at this time. Electronically Signed: Clint Grmialdo MD at 12:12 EDT ,
--- NOTE | 2022-09-22 14:53 | RAD_ITS ---
STUDY: X-RAY CHEST REASON FOR EXAM: Female, 56 years old. Chest Tube TECHNIQUE: Single AP portable view of the chest. COMPARISON: Comparison is made with prior study done earlier today at 12:00 PM. FINDINGS: The right-sided chest tube has been removed. EKG electrodes are seen. No evidence of pneumothorax. Interval decrease in the amount of subcutaneous emphysema overlying the right lower cervical region and right lateral chest. Residual subcutaneous emphysema overlying the left lower neck. Blunting of the right cardiac phrenic angle. Normal size heart. Normal mediastinum and elizabeth. Normal visualized pulmonary arteries. Normal visualized aortic arch and descending thoracic aorta. There are degenerative changes of the visualized thoracic spine. Normal visualized ribs, clavicles, and shoulders. There is no demonstrated abnormality of the visualized soft tissue structures of the upper abdomen. RAD/Chest 1 View IMPRESSION: No evidence of pneumothorax. Interval decrease in the right subcutaneous emphysematous changes. Electronically Signed: Clint Grimaldo MD at 15:34 EDT ,
[2022-09-22 15:20] VITALS: BP 136/91; PULSE 111; RESP 18; TEMP 36.8; O2SAT 99
--- NOTE | 2022-09-22 15:47 | DCINST_ITS ---
Discharge Instructions Diet Discharge Diet: No restrictions Activity Discharge Activity: Return to Normal Activity Weight Bearing Status: Full weight bearing Follow Up Care Test Results: Test results from this visit will be discussed in further detail at your follow- up appointment, if applicable. Discharge Plan Admission Admit Date/Time: 09/19/22 13:20 Primary Reason for Your Visit: Pneumothorax Attending Provider: Dann Ford Primary Care Provider: Bradford Brown Consulting Providers: Korina Garcia; Loki Pepper V; Ernst Kumar Discharge Orders/Prescriptions Prescriptions: Continued albuterol sulfate [ProAir HFA] 1 PUFF inhaler 1 - 2 puff inhalation Q4H PRN PRN (Reason: Asthma) Breztri Aerosphere 160-9-4.8 mcg/actuation HFA aerosol inhaler 2 inh INHALATION BID Patient Comments: inhalation 1 puff as directed once daily Referrals / Follow Up: Bradford Brown MD [Primary Care Provider] - Disposition Disposition (needs filled in before D/C Order can be placed): Home, Self Care
--- NOTE | 2022-09-22 15:49 | PCM.DC.SUM ---
Providers Date of Admission: 09/19/22 Date of Discharge: 09/22/22 Primary Care Physician: Dr. Bradford Brown MD Consultations 09/19/22 14:05 Consult: General Surgery Routine Consulting Provider: oKrina Garcia Reason for Consult: Iatrogenic pneumothorax EMERGENT Consult: No Notified: Yes Date Notified: 09/19/22 Time Notified: 13:23 Method of Notification: Verbal Consult: Product Technology Scientist / Pulmonary Medicine Routine Consulting Provider: Loki Pepper V Reason for Consult: Pneumothorax EMERGENT Consult: No Notified: Yes Date Notified: 09/19/22 Time Notified: 13:38 Method of Notification: Verbal Reason For Visit: IATROGENIC PNEUMOTHORAX Diagnosis Discharge Diagnosis (1) Iatrogenic pneumothorax: Status: Acute Code(s): J95.811 - Postprocedural pneumothorax Plan 1. Iatrogenic pneumothorax secondary to right needle biopsy for lung mass investigation #2 right lung mass #3 COPD #4 asthma Medications at Discharge Home Medications albuterol sulfate 90 mcg/actuation aerosol inhaler (ProAir HFA) 1 - 2 puff inhalation Q4H PRN PRN Asthma 09/23/16 budesonide 160 mcg-glycopyr 9 mcg-formot 4.8 mcg/actuation HFA inhaler (Breztri Aerosphere) 2 inh inhalation BID 09/19/22 Hospital Course Operations None Procedures None Summary of Care Provided Minutes Spent on Discharge: 31 Hospital Course: This 56-year-old white female was seen in the emergency room at [facility] after she developed right-sided chest pain after undergoing CT-guided needle biopsy of right lung mass. Studies were done after the procedure which demonstrated a 50% right-sided pneumothorax, she was sent to the emergency room and the patient was evaluated in the emergency room and underwent placement of a right-sided chest tube there. Patient was placed in the observation status on PCU and she was then and seen by general surgery. Patient had no complications during her hospital stay, on 09/22/2022, patient's chest tube was removed and x-rays obtained after the chest tube removal showed no evidence of pneumothorax. Patient was seen and examined on 09/22/2022: On examination she appeared in good health and spirits, she does not appear to be in any distress. Vital signs as documented. Skin warm and dry and without overt rashes. Neck without JVD, thyroid appears normal, trachea is midline, neck is supple. Lungs clear, normal air movement was noted. Heart exam notable for regular rhythm, normal sounds and absence of murmurs, rubs or gallops. Abdomen unremarkable and without evidence of organomegaly, masses, or abdominal aortic enlargement, bowel sounds are present in all 4 quadrants, no abdominal tenderness was noted. Extremities nonedematous, no cyanosis was noted, no clubbing was noted. Neuro: Cranial nerves II through XII are grossly intact, no focal motor deficits were noted, sensation to light touch and pinprick is intact, motor exam 5/5 throughout. Psych: Patient is alert and oriented x3, she does not appear anxious or depressed, she does not appear agitated. Patient was discharged in stable condition on 09/22/2022 Weight / BMI Weight Weight: 50.9 kg Body Mass Index (BMI) 21.2 ABG / Lab / Microbiology Data 09/20/22 05:51 09/20/22 05:51 Laboratory: Laboratory Results - last 24 hr 09/19/22 : Diff Path Review Reviewed Radiography Diagnostic Testing: Radiology Impression Chest X-Ray 09/22/22 05:55 IMPRESSION: 1. Subtotal resolution of the right pneumothorax. 2. Mild decrease in subcutaneous emphysema. 3. Stable positioning of the small caliber right chest tube. Electronically Signed: Cyrus Cardona MD at 5:33 EDT , Chest X-Ray 09/22/22 12:00 IMPRESSION: No evidence of pneumothorax at this time. Electronically Signed: Clint Grimaldo MD at 12:12 EDT , Chest X-Ray 09/22/22 14:53 IMPRESSION: No evidence of pneumothorax. Interval decrease in the right subcutaneous emphysematous changes. Electronically Signed: Clint Grimaldo MD at 15:34 EDT , D/C Instructions Discharge Diet: No restrictions Weight Bearing Status: Full weight bearing Meaningful Use Info Meaningful Use Diagnoses (Choose all that apply): None applicable Discharge Plan Admission Admit Date/Time: 09/19/22 13:20 Primary Reason for Your Visit: Pneumothorax Attending Provider: Dann Ford Primary Care Provider: Bradford Brown Consulting Providers: Korina Garcia; Loki Pepper V; Ernst Kumar Discharge Orders/Prescriptions Prescriptions: Continued albuterol sulfate [ProAir HFA] 1 PUFF inhaler 1 - 2 puff inhalation Q4H PRN PRN (Reason: Asthma) Breztri Aerosphere 160-9-4.8 mcg/actuation HFA aerosol inhaler 2 inh INHALATION BID Patient Comments: inhalation 1 puff as directed once daily Referrals / Follow Up: Bradford Brown MD [Primary Care Provider] - Disposition Disposition (needs filled in before D/C Order can be placed): Home, Self Care Charges/Coding Visit Charges Inpatient E&M: 86626 Disch Hosp >30min
--- NOTE | 2022-09-22 15:56 | CASEMGMT ---
Patient has order for discharge. RN CM in to discuss needs at discharge. Patient has portable tank from home for at discharge. Patient declines needs at discharge. Patient had no further questions at this time.
== END 2022-09-22 15:48 | disposition home or self-care (01) ==
LOC: ED 10:02 → PCU 15:48
PROVIDERS: Admitting Provider Internal Medicine; Emergency Provider Emergency Medicine; PCP Family Medicine; Visit Provider Internal Medicine
DX: J95.811 Postprocedural pneumothorax (principal); J44.9 Chronic obstructive pulmonary disease, unspecified; T79.7XXA Traumatic subcutaneous emphysema, initial encounter; Z87.891 Personal history of nicotine dependence; Z99.81 Dependence on supplemental oxygen; R91.8 Other nonspecific abnormal finding of lung field; Y84.8 Other medical procedures as the cause of abnormal reaction of the patient, or of later complication, without mention of misadventure at the time of the procedure; Z01.818 Encounter for other preprocedural examination; J93.9 Pneumothorax, unspecified
CPT/HCPCS: 99285; 32551; 36415; 71045; 71046; 77012; 80048; 82803; 84484; 85025; 85049; 85610; 85730; 88172; 88305; 88313; 93005; 94640; 96372; 96374; 96375; 96376; 99156; 99221; 99406; J7030; J7050; A4216; C2613; G0378; J2405

== ENCOUNTER 2022-09-23 16:43 | Inpatient (IN) | payer OTHER, SELFPAY ==
[2022-09-23] VITALS (13 sets, daily range): BP systolic 121–187; BP diastolic 86–130; PULSE 96–135; RESP 12–45; TEMP 36.1–37; O2SAT 4–98; BMI 18.1; BMI 16.9
--- NOTE | 2022-09-23 16:52 | EKG12_ITS ---
Test Reason : CP Blood Pressure : / mmHG Vent. Rate : 130 BPM Atrial Rate : 130 BPM P-R Int : 116 ms QRS Dur : 070 ms QT Int : 292 ms P-R-T Axes : 072 083 078 degrees QTc Int : 429 ms Sinus tachycardia Nonspecific ST abnormality Abnormal ECG Confirmed by DONNA ACKERMAN, YUSEF ([id number]), purchasing expeditor JUAN CARLOS OLIVARES ([id number]) on 09/25/2022 8:56:10 AM Referred By: BECCA Confirmed By:MATY THOMPSON MD
--- NOTE | 2022-09-23 16:56 | RAD_ITS ---
We are attempting to reach an attending provider to discuss findings. An addendum with communication details will be sent when the communication is complete. INDICATION: sob EXAMINATION/TECHNIQUE: X-RAY - XR Chest 1 View COMPARISON: September 22, 2022 FINDINGS: LINES/DEVICES: September 22, 2022 LUNGS: There is a mild right apical pneumothorax. Mild right pulmonary interstitial prominence MEDIASTINUM AND CARDIOVASCULAR STRUCTURES: Cardiac silhouette not enlarged. Central airways and mediastinal contour are unremarkable. BONES AND SOFT TISSUES: Degenerative vertebral changes. Right lateral chest wall subcutaneous emphysema. RAD/Chest 1 View (Portable) IMPRESSION: There is a mild right apical pneumothorax. Mild right pulmonary interstitial prominence Electronically Signed: Valerio Jackson DO at 17:14 EDT ,
[2022-09-23 17:03] LABS: Absolute Lymphocyte Count 1.92 X10^3/uL (0.83-4.51); Absolute Neutrophil Count 7.6 X10^3/uL (2.0-7.7); Basophil# 0.02 X10^3/uL; Basophil% 0.2 % (0-1); Eosinophil# 0.21 X10^3/uL; Eosinophils% 1.9 % (0-5); Hematocrit 40.2 % (37-47); Hemoglobin 12.6 g/dL (12.0-15.0); Lymphocyte # 1.92 X10^3/ul (0.83-4.51); Lymphocyte % 17.5 % (19-41); Mean Corp Hgb Conc 31.3 g/dL (32-36); Mean Corpuscular Hgb 29.4 pg (27.0-32.0); Mean Corpuscular Volume 93.7 fL (81-99); Mean Platelet Vol. 9.9 fl (6.2-12.0); Monocyte# 1.22 X10^3/uL; Monocyte% 11.1 % (0-10); NRBC Flagged by Analyzer 0 % (0-5); Neutrophil # 7.56 X10^3/uL (2.7-7.7); Platelet Count 283 K/mm3 (150-450); RBC Distribution Width CV 13.5 % (11.6-14.6); RBC Distribution Width SD 45.8 fl (35.1-43.9); Red Blood Count 4.29 M/mm3 (4.2-5.4)
[2022-09-23] MEDS: Albuterol 2.5 MG/3 ML VIAL.NEB. INHALATION ×2 (17:09)
[2022-09-23] MEDS: MethylPREDNISolone 125 MG/2 ML Vial IV (17:09)
[2022-09-23] MEDS: Ipratropium/Albuterol Sulfate 3 ML AMPUL.NEB INHALATION (17:10)
[2022-09-23 17:14] LABS: Partial Thromboplast Time 26.2 Seconds (24.1-36.2)
--- NOTE | 2022-09-23 17:23 | EX.ED.DYSGE1 ---
HPI History of Present Illness Chief Complaint: Shortness of Breath Informant: patient Onset/Context/Timing Onset: Today Context: Gradual Onset Narrative Narrative: Patient presents secondary to increased shortness of breath. Patient was in the hospital September 19 through the with an iatrogenic pneumothorax on the right after a CT-guided lung biopsy. Pigtail chest tube was pulled yesterday and patient discharged home. Patient reports increased shortness of breath. She also has a history of COPD and is on home oxygen. She states she tried her breathing treatments without improvement. PFSH PFSH Medical History Anxiety Asthma COPD (chronic obstructive pulmonary disease) Hernia Hypoxia Iatrogenic pneumothorax Left wrist fracture Migraines On home oxygen therapy Protein calorie malnutrition Smoker Home Medications albuterol sulfate 90 mcg/actuation aerosol inhaler (ProAir HFA) 1 - 2 puff inhalation Q4H PRN PRN Asthma 09/23/16 [History Last Taken 07/15/21] budesonide 160 mcg-glycopyr 9 mcg-formot 4.8 mcg/actuation HFA inhaler (Breztri Aerosphere) 2 inh inhalation BID 09/19/22 [History Last Taken Unknown] Allergy/AdvReac Type Severity Reaction Status Date / Time No Known Allergies Allergy Verified 06/24/18 17:26 Family History Other Heart disease Surgical History H/O wrist surgery History of hernia surgery Social History Smoking Status: Former smoker ROS ROS ED Constitutional Constitutional ED: Denies chills or fever(s) Eyes Eyes: Denies change in vision ENT ENT ED: Denies rhinorrhea or sore throat Cardiovascular Cardiovascular: Denies chest pain Respiratory/Chest Respiratory/Chest: Reports dyspnea; Denies cough Gastrointestinal Gastrointestinal: Denies abdominal pain, nausea or vomiting Genitourinary Genitourinary ED: Denies dysuria Musculoskeletal Musculoskeletal: Denies back pain or extremity pain Integumentary Denies Abrasions or rash Neurologic Neurologic: Denies headache(s) or weakness Psychiatric Psychiatric: Reports anxiety; Denies depression Allergic/Immunologic Allergic/Immunologic ED: Denies lip swelling or urticaria EXAM Physical Exam Const Vital Signs: 09/23/22 16:44 09/23/22 16:51 09/23/22 16:51 Temperature 98.6 F Temperature Source Temporal Pulse Rate 135 H 131 H Respiratory Rate 44 H 40 H Respiratory Effort Respiratory Depth Respiratory Pattern Blood Pressure 187/101 H Blood Pressure Mean 129 Pulse Ox 97 97 4 Oxygen Delivery Method Airvo Nasal Cannula Nasal Cannula Oxygen Flow Rate (L/min) 4 4 Fraction of Inspired Oxygen (FIO2) 09/23/22 17:00 09/23/22 17:14 09/23/22 17:14 Temperature Temperature Source Pulse Rate 132 H 133 H Respiratory Rate 45 H 26 H Respiratory Effort Short of Breath Accessory Muscle Use Pursed Lip Retracting Respiratory Depth Shallow Respiratory Pattern Tachypnea Tachypnea Tachypnea Blood Pressure Blood Pressure Mean Pulse Ox 95 Oxygen Delivery Method Nasal Cannula Oxygen Flow Rate (L/min) 4 Fraction of Inspired Oxygen (FIO2) 40 Positive well nourished and well developed General Appearance ED: well developed HEENT Reports normocephalic and head/scalp atraumatic Eyes PERRL and EOMs intact bilaterally Neck supple Chest Wall inspection of chest normal and palpation of chest normal Resp Resp Narrative: Tachypnea with decreased air movement bilaterally. Cardio Rate: tachycardic GI non-tender Palpation: soft Extremity normal to inspection Neuro oriented x3 and no sensory deficits noted Sensorium / Orientation: alert Motor Exam: strength 5/5 throughout Psych Mood & Affect: anxious Skin no rashes or lesions noted MDM MDM MDM Narrative Medical decision making narrative: Radiology called immediately for portable chest x-ray. Labwork obtained to evaluate for leukocytosis, anemia, and electrolyte derangement. Patient ordered aerosol treatments along with IV Solu-Medrol. Lab Data Attestation: I reviewed the patient's lab results. Labs: Laboratory Results - last 24 hr 09/23/22 16:55 WBC 11.0 RBC 4.29 Hgb 12.6 Hct 40.2 MCV 93.7 MCH 29.4 MCHC 31.3 L RDW Std Deviation 45.8 H RDW Coeff of Dejuan 13.5 Plt Count 283 MPV 9.9 Immature Gran % (Auto) 0.300 Neut % (Auto) 69.0 Lymph % (Auto) 17.5 L [place] % (Auto) 11.1 H Eos % (Auto) 1.9 Baso % (Auto) 0.2 Absolute Neuts (auto) 7.6 Absolute Lymphs (auto) 1.92 Nucleated RBC % 0 PT 13.0 INR 1.0 APTT 26.2 Sodium 139 Potassium 3.9 Chloride 104 Carbon Dioxide 33.0 H Anion Gap 2 L BUN 19 H Creatinine 0.51 L Estim Creat Clear Calc 94.15 Est GFR (MDRD) Af Amer 160 Est GFR (MDRD) Non-Af 132 BUN/Creatinine Ratio 37.5 H Glucose 131 H Calcium 9.1 Troponin I High Sens 13 Radiography Chest X-Ray - ED: 1 View, Read by ED Physician and - (Subcutaneous emphysema improving. Very tiny right apical pneumothorax. No evidence of tension.) Diagnostic Testing: Clinical Impression(s) from Imaging Studies Chest X-Ray 09/23/22 16:56 IMPRESSION: There is a mild right apical pneumothorax. Mild right pulmonary interstitial prominence Electronically Signed: Valerio Jackson DO at 17:14 EDT , ADDENDUM: 09/23/22 1725 IMPRESSION: There is a mild right apical pneumothorax. Mild right pulmonary interstitial prominence N.B. : The above Results were Read Back by Valerio Jackson DO to Noris Albert MD, and understanding confirmed on 09/23/2022 17:18:11 (ET). Electronically Signed: Valerio Jackson DO at 17:14 EDT , EKG Initial EKG: Attestation: I personally reviewed and interpreted this EKG as follows: Interpretation: Sinus Tachycardia (Sinus tachycardia at 130. No obvious ischemia.) Treatment and Re-Evaluation :: CBC was normal white count at 11.0 with a hemoglobin of 12.6. Coags unremarkable. Chemistry studies reveal a bicarb of 33. Renal function is normal. Troponin is normal at 13. EKG is sinus tach with no acute ischemia. Portable chest x-ray shows a possible very tiny right apical pneumothorax when compared to her previous studies. Radiology reading feels there is a small apical pneumothorax that was not present on yesterday's most recent x-ray. I spoke with Dr. Camp, on-call for surgery. He reviewed the images. He feels that they are unchanged from yesterday, may be just a slightly different projection. He states that as long as the patient is on continuous pulse ox she can remain on BiPAP and have a repeat x-ray obtained in 6 hours. On BiPAP here patient is breathing more comfortably. Respiratory rate has gone from the mid 40s down to the low 20s. Discharge Plan Triage Chief Complaint: Shortness of Breath ED Provider: Noris Albert Dx/Rx/DC Orders Prescriptions: No Action albuterol sulfate [ProAir HFA] 1 PUFF inhaler 1 - 2 puff inhalation Q4H PRN PRN (Reason: Asthma) Breztri Aerosphere 160-9-4.8 mcg/actuation HFA aerosol inhaler 2 inh INHALATION BID Patient Comments: inhalation 1 puff as directed once daily Primary Care Provider: Bradford Brown Referrals: Bradford Brown MD [Primary Care Provider] -
[2022-09-23 17:42] LABS: Anion Gap 2 (5-15); BUN 19 mg/dL (7-18); BUN/Creat Ratio 37.5 RATIO (10-20); Calcium,Total 9.1 mg/dL (8.5-10.1); Chloride 104 mmol/L (98-107); Creatinine, Serum 0.51 mg/dL (0.55-1.02); EST Glomerular Filtration Rate 132 mL/min (>60); Est Glom Filt Rate - Afr Amer 160 mL/min (>60); Estimated Creatinine Clearance 94.15 ml/min; Glucose 131 mg/dL (74-106); Potassium 3.9 mmol/L (3.5-5.1); Sodium Level 139 mmol/L (136-145); Troponin-I HS 13 pg/mL (3.0-54.0)
--- NOTE | 2022-09-23 18:19 | NURSING ---
ICU DEEPIKA COPD EXAC, SMALL PTX
--- NOTE | 2022-09-23 19:33 | PCM.HP.STD ---
HPI - General General Date of Admission: 09/23/22 Date of Service: 09/23/22 Chief Complaint: Sudden onset of shortness of breath in the morning today and not feeling well after discharge yesterday. HPI Narrative HEMANTH ESTRADA, is a 56 F who was discharged last night after chest tube removal for iatrogenic pneumothorax after lung biopsy came to ED for sudden onset of severe shortness of breath in the morning today. Patient stated she did not feel well last evening with low appetite. In the morning today she had shortness of breath and felt like could not breathe. She also felt mild chest tightness. She tried a breathing treatment/bronchodilator at home without improvement came to ED. In ED, chest x-ray shows mild right apical pneumothorax. ED vitals shows patient with tachypnea, 44/min shallow breathing, using accessory muscles; initially on 4 L of oxygen and then increased to 40% FiO2 on BiPAP. Patient also tachycardic. Heart rate 132/min. Blood pressure was elevated Patient further admitted in ICU. PFSH Medical History Anxiety Asthma COPD (chronic obstructive pulmonary disease) Hernia Hypoxia Iatrogenic pneumothorax Left wrist fracture Migraines On home oxygen therapy Protein calorie malnutrition Smoker Home Medications albuterol sulfate 90 mcg/actuation aerosol inhaler (ProAir HFA) 1 - 2 puff inhalation Q4H PRN PRN Asthma 09/23/16 [History Last Taken 07/15/21] budesonide 160 mcg-glycopyr 9 mcg-formot 4.8 mcg/actuation HFA inhaler (Breztri Aerosphere) 2 inh inhalation BID 09/19/22 [History Last Taken Unknown] Allergy/AdvReac Type Severity Reaction Status Date / Time No Known Allergies Allergy Verified 06/24/18 17:26 Family History Other Heart disease Surgical History H/O wrist surgery History of hernia surgery Social History Smoking Status: Former smoker ROS ROS Narrative 14 system ROS were incomplete as patient on BiPAP and could not answer questions completely. Constitutional: Reports fatigue and weakness. No fever. Could not breathe HEENT: Reports systems reviewed and no addt'l complaints, except as documented Respiratory/Chest: As described in HPI CVS: Mild chest tightness but no pressure or chest pain Gastrointestinal: Denies coffee ground emesis, hematemesis or vomiting Genitourinary: Denies burning urination or new urinary tract symptoms Musculoskeletal: Denies acute joint pain or limited range of motion. No acute injury Neurologic: Denies seizure-like symptoms. skin: No ulcer. No rash Endocrinology: Reports systems reviewed and no addt'l complaints, except as documented Hematologic/Lymphatic: Reports systems reviewed and no addt'l complaints, except as documented Rest 14 ROS are negative except as mentioned in HPI Vital Signs Vital Signs Vital Signs: 09/23/22 16:44 09/23/22 16:51 09/23/22 16:51 Temperature 98.6 F Temperature Source Temporal Pulse Rate 135 H 131 H Respiratory Rate 44 H 40 H Respiratory Effort Respiratory Depth Respiratory Pattern Blood Pressure 187/101 H Blood Pressure Mean 129 Pulse Ox 97 97 4 Oxygen Delivery Method Airvo Nasal Cannula Nasal Cannula Oxygen Flow Rate (L/min) 4 4 Fraction of Inspired Oxygen (FIO2) 09/23/22 17:00 09/23/22 17:14 09/23/22 17:14 Temperature Temperature Source Pulse Rate 132 H 133 H Respiratory Rate 45 H 26 H Respiratory Effort Short of Breath Accessory Muscle Use Pursed Lip Retracting Respiratory Depth Shallow Respiratory Pattern Tachypnea Tachypnea Tachypnea Blood Pressure Blood Pressure Mean Pulse Ox 95 Oxygen Delivery Method Nasal Cannula Oxygen Flow Rate (L/min) 4 Fraction of Inspired Oxygen (FIO2) 40 09/23/22 17:56 09/23/22 18:32 09/23/22 19:18 Temperature 97 F L Temperature Source Oral Pulse Rate 127 H 127 H 121 H Respiratory Rate 42 H 32 H 18 Respiratory Effort Respiratory Depth Respiratory Pattern Blood Pressure 154/102 H 148/95 H 141/96 H Blood Pressure Mean 119 112 111 Pulse Ox 95 96 96 Oxygen Delivery Method Bi-pap Bi-pap Oxygen Flow Rate (L/min) Fraction of Inspired Oxygen (FIO2) Weight Weight: 109 lb 5.588 oz Body Mass Index (BMI) 18.1 Physical Exam Narrative General: Alert, Oriented x3, Cooperative. Chronic mild protein calorie malnutrition, BMI 18.2 kg/m? HEENT: Atraumatic, PERRLA, EOMI, Normocephalic Oral: No Gingival or Mucosal Lesions/ Ulcerations Neck: Supple, No JVD, Negative Carotid Bruits Lungs: Air entry severely diminished in both lung lujan. On BiPAP. Tachypnea and severe hypoxia. Cardiovascular: Sinus tachycardia. Normal S1, Normal S2, No murmurs Abdomen: Bowel Sounds Present, Soft, Non Tender, Non-Distended : No renal angle tenderness. No suprapubic tenderness. Extremities: No edema, Capillary Refill Less than 3 Seconds Skin: No rashes, No breakdown Musculoskeletal: No Tenderness to Palpation of Joints or Extremities. Moderate chronic muscle atrophy of extremities and loss of subcutaneous fat. Neurological: Cranial nerves II-XII grossly intact, DTR 2+/4. No acute focal neurological defic Psych/Mental Status: Normal Affect, Appropriate. Results Lab / Micro Data 09/23/22 16:55 09/23/22 16:55 Labs: Laboratory Results - last 24 hr 09/23/22 16:55: WBC 11.0, RBC 4.29, Hgb 12.6, Hct 40.2, MCV 93.7, MCH 29.4, MCHC 31.3 L, RDW Std Deviation 45.8 H, RDW Coeff of Dejuan 13.5, Plt Count 283, MPV 9.9, Immature Gran % (Auto) 0.300, Neut % (Auto) 69.0, Lymph % (Auto) 17.5 L, Wilkes % (Auto) 11.1 H, Eos % (Auto) 1.9, Baso % (Auto) 0.2, Absolute Neuts (auto) 7.6, Absolute Lymphs (auto) 1.92, Nucleated RBC % 0, PT 13.0, INR 1.0, APTT 26.2, Sodium 139, Potassium 3.9, Chloride 104, Carbon Dioxide 33.0 H, Anion Gap 2 L, BUN 19 H, Creatinine 0.51 L, Estim Creat Clear Calc 94.15, Est GFR (MDRD) Af Amer 160, Est GFR (MDRD) Non-Af 132, BUN/Creatinine Ratio 37.5 H, Glucose 131 H, Calcium 9.1, Troponin I High Sens 13 Radiology Impression Chest X-Ray 09/23/22 16:56 IMPRESSION: There is a mild right apical pneumothorax. Mild right pulmonary interstitial prominence Electronically Signed: Valerio Jackson DO at 17:14 EDT , ADDENDUM: 09/23/22 1725 IMPRESSION: There is a mild right apical pneumothorax. Mild right pulmonary interstitial prominence N.B. : The above Results were Read Back by Valerio Jackson DO to Noris Albert MD, and understanding confirmed on 09/23/2022 17:18:11 (ET). Electronically Signed: Valerio Jackson DO at 17:14 EDT , Assessment & Plan Assessment/Plan (1) Iatrogenic pneumothorax: PLAN: Plan 1. Acute on chronic hypoxic respiratory failure due to COPD: Patient is being admitted in ICU. Is only on low oxygen at home for shortness of breath severely increased and patient has to be put on BiPAP. Benefits Officer and surgeon Dr. Camp are consulted. Repeat chest x-ray at [address] Lassiter did patient FiO2 requirement increases or shows increase in pneumothorax surgery has to put chest tube. 2. Iatrogenic pneumothorax after CT-guided lung biopsy. Patient was admitted between 09/19 to 09/22 for iatrogenic pneumothorax. At that time pigtail catheter was inserted and repeat chest x-ray showed reexpansion of the lung with no air leak therefore chest tube was pulled out and patient was discharged. 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 Patient also had mild subcutaneous emphysema. 3. Right upper and right lower lobe nodular densities ? Patient underwent biopsies on 09/19/2022 with complications described above 4. Asthma COPD bronchitis/overlap syndrome: DuoNeb every 6 hourly scheduled order. Patient has inhaler and home oxygen. 5. DVT prophylaxis - On enoxaparin Living will/advanced directive/end of life care: Patient does not have living will or advanced directive. She does not have Dend[place] power of assistant district attorney for health but is next of kin. After discussion of benefits/risks procedures involved with full code, DNR CC arrest and DNR CC, the patient and her , she opted for full code. Patient does want artificial life support including intubation, tube feed, ventilator and/chest compression, central venous catheter, vasopressor and DC shock if needed Total time spent in [id number] encounter in discussion of advanced directive 17 minutes. Laboratory Results 09/23/22 16:55: WBC 11.0, RBC 4.29, Hgb 12.6, Hct 40.2, MCV 93.7, MCH 29.4, MCHC 31.3 L, RDW Std Deviation 45.8 H, RDW Coeff of Dejuan 13.5, Plt Count 283, MPV 9.9, Immature Gran % (Auto) 0.300, Neut % (Auto) 69.0, Lymph % (Auto) 17.5 L, Wilkes % (Auto) 11.1 H, Eos % (Auto) 1.9, Baso % (Auto) 0.2, Absolute Neuts (auto) 7.6, Absolute Lymphs (auto) 1.92, Nucleated RBC % 0, PT 13.0, INR 1.0, APTT 26.2 Sodium 139, Potassium 3.9, Chloride 104, Carbon Dioxide 33.0 H, Anion Gap 2 L, BUN 19 H, Creatinine 0.51 L, Estim Creat Clear Calc 94.15, Est GFR (MDRD) Af Amer 160, Est GFR (MDRD) Non-Af 132, BUN/Creatinine Ratio 37.5 H, Glucose 131 H, Calcium 9.1, Magnesium 2.1, Troponin I High Sens 13 Charges/Coding Visit Charges Inpatient E&M: 35602 Init Hosp L3 Procedures Hospitalists Procedures: 78768 Advncd Care Plan 30 Min
[2022-09-23 20:02] LABS: Magnesium 2.1 mg/dL (1.6-2.6)
--- NOTE | 2022-09-23 20:40 | RAD_ITS ---
INDICATION: pneumothorax EXAMINATION/TECHNIQUE: X-RAY - XR Chest 1 View COMPARISON: September 23, 2022 at 16:36 hours FINDINGS: LINES/DEVICES: None. LUNGS: Right basilar possible infiltrate.. Small right apical pneumothorax. MEDIASTINUM AND CARDIOVASCULAR STRUCTURES: Cardiac silhouette not enlarged. Central airways and mediastinal contour are unremarkable. BONES AND SOFT TISSUES: Right lateral chest wall subcutaneous emphysema. RAD/Chest 1 View (Portable) IMPRESSION: Right basilar possible infiltrate.. Small right apical pneumothorax similar to previous study. Electronically Signed: Valerio Jackson DO at 21:14 EDT ,
[2022-09-23] MEDS: KCL 20MEQ in 0.9% NS 20 MEQ/1,000 ML IV.SOLN. 75 MEQ IV (21:26)
[2022-09-23] MEDS: Enoxaparin 40 MG/0.4 ML Syringe SC (21:27)
[2022-09-24] VITALS (27 sets, daily range): BP systolic 117–147; BP diastolic 76–98; PULSE 74–142; RESP 12–36; TEMP 36.2–37.1; O2SAT 96–100; BMI 16.9
[2022-09-24] MEDS: Ipratropium/Albuterol Sulfate 3 ML AMPUL.NEB INHALATION ×4 (00:57→19:08)
[2022-09-24 04:14] LABS: Absolute Lymphocyte Count 0.64 X10^3/uL (0.83-4.51); Absolute Neutrophil Count 5.3 X10^3/uL (2.0-7.7); Basophil# 0.01 X10^3/uL; Basophil% 0.2 % (0-1); Hematocrit 36.7 % (37-47); Hemoglobin 11.5 g/dL (12.0-15.0); Lymphocyte # 0.64 X10^3/ul (0.83-4.51); Lymphocyte % 10.5 % (19-41); Mean Corp Hgb Conc 31.3 g/dL (32-36); Mean Corpuscular Hgb 29.4 pg (27.0-32.0); Mean Corpuscular Volume 93.9 fL (81-99); Mean Platelet Vol. 9.8 fl (6.2-12.0); Monocyte# 0.12 X10^3/uL; NRBC Flagged by Analyzer 0 % (0-5); Neutrophil # 5.32 X10^3/uL (2.7-7.7); Platelet Count 230 K/mm3 (150-450); RBC Distribution Width CV 13.5 % (11.6-14.6); RBC Distribution Width SD 46.5 fl (35.1-43.9); Red Blood Count 3.91 M/mm3 (4.2-5.4); White Blood Count 6.1 K/mm3 (4.4-11.0)
[2022-09-24 05:10] LABS: Anion Gap 5 (5-15); BUN 22 mg/dL (7-18); BUN/Creat Ratio 55.1 RATIO (10-20); Calcium,Total 8.6 mg/dL (8.5-10.1); Chloride 107 mmol/L (98-107); EST Glomerular Filtration Rate 174 mL/min (>60); Est Glom Filt Rate - Afr Amer 211 mL/min (>60); Estimated Creatinine Clearance 111.57 ml/min; Glucose 153 mg/dL (74-106); Potassium 4.3 mmol/L (3.5-5.1); Sodium Level 141 mmol/L (136-145)
--- NOTE | 2022-09-24 06:00 | RAD_ITS ---
INDICATION: pneumothorax evaluation EXAMINATION/TECHNIQUE: X-RAY - XR Chest 1 View COMPARISON: Chest x-ray from approximately 9 hours prior FINDINGS: LINES/DEVICES: None. LUNGS: Hyperexpanded lungs compatible COPD. Mild residual right basilar opacity. No sizable pleural effusion. Small residual right pneumothorax, stable. MEDIASTINUM AND CARDIOVASCULAR STRUCTURES: Heart size within normal limits. Mediastinal contours unremarkable. BONES AND SOFT TISSUES: Right chest wall subcutaneous emphysema again noted. RAD/Chest 1 View (Portable) IMPRESSION: COPD with stable small residual right pneumothorax and mild right basilar opacity. Electronically Signed: Dann Alston MD at 7:57 EDT ,
--- NOTE | 2022-09-24 07:23 | PN.HOSP_ITS ---
Reason for Visit Reason for Visit: Diagnoses Postprocedural pneumothorax (09/23/22) Subjective Subjective Breathing better. Weaned off BiPAP. Got up at side of bed to stand and became very tachypneic. Objective Data Objective Data Vital Signs: Vital Signs Temp Pulse Resp BP Pulse Ox O2 Del Method O2 Flow Rate 36.8 C 93 21 H 136/95 H 99 Bi-pap 4 09/24/22 07:00 09/24/22 07:00 09/24/22 07:00 09/24/22 07:00 09/24/22 07:00 09/24/22 07:00 09/23/22 17:00 FiO2 35 09/24/22 07:00 Oxygen Flow Rate (L/min) 4 Oxygen Delivery Method Bi-pap Weight: 46.1 kg Body Mass Index (BMI) 16.9 Intake & Output: Intake and Output for Last 24 Hours 09/22/22 09/23/22 09/24/22 23:59 23:59 23:59 Intake Total 0 / 0 0 / 0 Output Total 0 / 0 0 / 0 Balance 0 / 0 0 / 0 Lab / Micro Data 09/24/22 04:05 09/24/22 04:05 Labs: Laboratory Results - last 24 hr 09/23/22 16:55: WBC 11.0, RBC 4.29, Hgb 12.6, Hct 40.2, MCV 93.7, MCH 29.4, MCHC 31.3 L, RDW Std Deviation 45.8 H, RDW Coeff of Dejuan 13.5, Plt Count 283, MPV 9.9, Immature Gran % (Auto) 0.300, Neut % (Auto) 69.0, Lymph % (Auto) 17.5 L, Bartholomew % (Auto) 11.1 H, Eos % (Auto) 1.9, Baso % (Auto) 0.2, Absolute Neuts (auto) 7.6, Absolute Lymphs (auto) 1.92, Nucleated RBC % 0, PT 13.0, INR 1.0, APTT 26.2, Sodium 139, Potassium 3.9, Chloride 104, Carbon Dioxide 33.0 H, Anion Gap 2 L, BUN 19 H, Creatinine 0.51 L, Estim Creat Clear Calc 94.15, Est GFR (MDRD) Af Amer 160, Est GFR (MDRD) Non-Af 132, BUN/Creatinine Ratio 37.5 H, Glucose 131 H, Calcium 9.1, Magnesium 2.1, Troponin I High Sens 13 09/24/22 04:05: WBC 6.1, RBC 3.91 L, Hgb 11.5 L, Hct 36.7 L, MCV 93.9, MCH 29.4, MCHC 31.3 L, RDW Std Deviation 46.5 H, RDW Coeff of Dejuan 13.5, Plt Count 230, MPV 9.8, Immature Gran % (Auto) 0.300, Neut % (Auto) 87.0 H, Lymph % (Auto) 10.5 L, Bartholomew % (Auto) 2.0, Eos % (Auto) 0.0, Baso % (Auto) 0.2, Absolute Neuts (auto) 5.3, Absolute Lymphs (auto) 0.64 L, Nucleated RBC % 0, Sodium 141, Potassium 4.3, Chloride 107, Carbon Dioxide 29.0, Anion Gap 5, BUN 22 H, Creatinine 0.40 L , Estim Creat Clear Calc 111.57, Est GFR (MDRD) Af Amer 211, Est GFR (MDRD) Non- Af 174, BUN/Creatinine Ratio 55.1 H, Glucose 153 H, Calcium 8.6 Radiography Diagnostic Testing: Radiology Impression Chest X-Ray 09/23/22 16:56 IMPRESSION: There is a mild right apical pneumothorax. Mild right pulmonary interstitial prominence Electronically Signed: Valerio Jackson DO at 17:14 EDT , ADDENDUM: 09/23/22 1725 IMPRESSION: There is a mild right apical pneumothorax. Mild right pulmonary interstitial prominence N.B. : The above Results were Read Back by Valerio Jackson DO to Noris Albert MD, and understanding confirmed on 09/23/2022 17:18:11 (ET). Electronically Signed: Valerio Jackson DO at 17:14 EDT , Chest X-Ray 09/23/22 20:40 IMPRESSION: Right basilar possible infiltrate.. Small right apical pneumothorax similar to previous study. Electronically Signed: Valerio DO Manuel at 21:14 EDT Reading Location ID and State: [facility] / [place] Tel [phone], Service support , Physical Exam Const alert and no apparent distress Constitutional Narrative: cachectic. HEENT head/scalp atraumatic and moist oral mucous membranes Resp Resp Narrative: diminished breath sounds bilaterally. Cardio regular rate, regular rhythm, S1 normal heart sound and S2 normal heart sound GI normal to inspection, nondistended, normoactive bowel sounds, soft to palpation, non-tender and non-distended Extremity normal to inspection Assessment & Plan Assessment/Plan (1) COPD with exacerbation: PLAN: received methylpred in ED. Will scheduled BDs Wean oxygen as able. Weaned off bipap. (2) Iatrogenic pneumothorax: PLAN: stable 2/2 CT guided lung Bx. No change on CXR. Gen surgery on consult. No plans for chest tube at this time. (3) Severe protein-calorie malnutrition: PLAN: Add supplements PLAN: Plan Chronic conditions: * Right upper and right lower lobe nodular densities? Patient underwent biopsies on 09/19/2022 with complications described above. Biopsy negative for malignant cells. DVT prophylaxis - On enoxaparin Code: Full No documented hypoxia, therefore I cannot diagnose acute hypoxic respiratory failure. I cannot rule it in, nor rule it out. Charges/Coding Visit Charges Inpatient E&M: 67408 Subs Hosp L2
[2022-09-24] MEDS: Enoxaparin 40 MG/0.4 ML Syringe SC (08:32)
[2022-09-24] MEDS: Methylprednisolone Sod Succ 40 MG/ML VIAL IV ×3 (08:32→20:39)
--- NOTE | 2022-09-24 09:47 | CON.PCM.SX_ITS ---
Assessment & Plan Assessment/Plan (1) Iatrogenic pneumothorax: PLAN: This is a 56-year-old female with a history of COPD on 4 L continuous oxygen therapy who was recently discharged from [facility] on 09/22/2022 due to management of an iatrogenic pneumothorax following a CT-guided lung biopsy by radiology 09/19/2022. She was readmitted yesterday, 09/23/2022 with acute respiratory failure. Intake chest x-ray in the ER showed a small apical pneumothorax and I was contacted by emergency medicine to confirm the reading on the patient's chest x-ray. I did agree with radiology that the size of this pneumothorax remains small and there is no increase of her subcutaneous emphysema. Out of concern for causing another parenchymal injury I recommended patient be closely monitored with continuous pulse oximetry and the chest x-ray repeated in 6 hours. That chest x-ray returned stable last evening and patient's vitals were mildly improved. This morning, Mrs. Murray remains tachypneic with shallow inspirations, but reports further improvement of her symptoms. Once again a chest x-ray remains stable with a small apical pneumothorax and it appears that the area of subcutaneous emphysema is modestly improved. With these improvements I recommend continued optimization of patient's respiratory status, but would recommend against replacing her thoracostomy tube out of concern for the risk of causing additional parenchymal injury outweighing a clinical benefit. Additionally, I have reached out to Dr. Pepper, patient's primary high density press operator, via his office staff to make him aware that Mrs. Murray has been readmitted. We will continue to follow and recommend repeat chest x-ray in a.m. unless clinical status were to change. HPI Consult Data Date of Consult: 09/24/22 HPI Narrative Reason for Consultation: Right-sided pneumothorax HPI Narrative: HEMANTH MURRAY, is a 56 F who presented to [facility] yesterday with respiratory distress less than 24 hours after hospital discharge for management of an iatrogenic pneumothorax. On 09/19/[address]- guided lung biopsy that resulted in a 50% pneumothorax. Thoracostomy tube was placed and managed by Dr. Garcia. Patient had initial air leak, but this evid ently sealed and the chest tube was removed with a stable chest x-ray. Yesterday on intake chest x-ray was obtained and demonstrated a small pneumothorax. At this time I was called by emergency medicine to offer review of the imaging and I agreed with radiology's conclusion that there was a small apical pneumothorax present, but I recommended against placing a thoracostomy tube as I was concerned this could lead to additional parenchymal injury without pleural space to insert a tube. Instead I suggested the patient could be placed on continuous pulse oximetry for monitoring and a chest x-ray repeated in 6 hours. This was undertaken and patient was admitted to the ICU for close monitoring. I was then notified at 2230 that a consult had been placed and patient's chest x-ray had been repeated as stable. At that time nursing notified me that patient's respiratory rate was somewhat improved and she remained stable. This morning Mrs. Murray confirms that she is feeling better but still became significantly short of breath as she ambulated to the bathroom. Respiratory therapy, present at bedside confirms this history with evidence of tachypnea, but reports that patient never became hypoxic. It is noted that patient has a longstanding history of COPD related to an extensive tobacco history prior to undergoing smoking cessation 15 months ago. She is followed by Dr. Pepper, pulmonology, for this issue. [facility] Medical History Anxiety Asthma COPD (chronic obstructive pulmonary disease) Hernia Hypoxia Iatrogenic pneumothorax Left wrist fracture Migraines On home oxygen therapy Protein calorie malnutrition Smoker Home Medications albuterol sulfate 90 mcg/actuation aerosol inhaler (ProAir HFA) 1 - 2 puff inhalation Q4H PRN PRN Asthma 09/23/16 [History Last Taken 07/15/21] budesonide 160 mcg-glycopyr 9 mcg-formot 4.8 mcg/actuation HFA inhaler (Breztri Aerosphere) 2 inh inhalation BID 09/19/22 [History Last Taken Unknown] Allergy/AdvReac Type Severity Reaction Status Date / Time No Known Allergies Allergy Verified 06/24/18 17:26 Family History Other Heart disease Surgical History H/O wrist surgery History of hernia surgery Social History Smoking Status: Former smoker Physical Exam Const alert and oriented x3 Constitutional Narrative: Patient appears in mild distress still from work of breathing and is taking frequent shallow breaths General Appearance: cooperative Neck Neck Narrative: Mild crepitus present in the supraclavicular fossa Chest Chest Narrative: Mild crepitus present along the right lateral chest wall and anteriorly Resp Resp Narrative: Tachypneic with shallow inspirations. Breath sounds heard throughout all lung lujan. Lab / Micro Data 09/24/22 04:05 09/24/22 04:05 Labs: Laboratory Results - last 24 hr 09/23/22 16:55: WBC 11.0, RBC 4.29, Hgb 12.6, Hct 40.2, MCV 93.7, MCH 29.4, MCHC 31.3 L, RDW Std Deviation 45.8 H, RDW Coeff of Dejuan 13.5, Plt Count 283, MPV 9.9, Immature Gran % (Auto) 0.300, Neut % (Auto) 69.0, Lymph % (Auto) 17.5 L, Door % (Auto) 11.1 H, Eos % (Auto) 1.9, Baso % (Auto) 0.2, Absolute Neuts (auto) 7.6, Absolute Lymphs (auto) 1.92, Nucleated RBC % 0, PT 13.0, INR 1.0, APTT 26.2, Sodium 139, Potassium 3.9, Chloride 104, Carbon Dioxide 33.0 H, Anion Gap 2 L, BUN 19 H, Creatinine 0.51 L, Estim Creat Clear Calc 94.15, Est GFR (MDRD) Af Amer 160, Est GFR (MDRD) Non-Af 132, BUN/Creatinine Ratio 37.5 H, Glucose 131 H, Calcium 9.1, Magnesium 2.1, Troponin I High Sens 13 09/24/22 04:05: WBC 6.1, RBC 3.91 L, Hgb 11.5 L, Hct 36.7 L, MCV 93.9, MCH 29.4, MCHC 31.3 L, RDW Std Deviation 46.5 H, RDW Coeff of Dejuan 13.5, Plt Count 230, MPV 9.8, Immature Gran % (Auto) 0.300, Neut % (Auto) 87.0 H, Lymph % (Auto) 10.5 L, Door % (Auto) 2.0, Eos % (Auto) 0.0, Baso % (Auto) 0.2, Absolute Neuts (auto) 5.3, Absolute Lymphs (auto) 0.64 L, Nucleated RBC % 0, Sodium 141, Potassium 4.3, Chloride 107, Carbon Dioxide 29.0, Anion Gap 5, BUN 22 H, Creatinine 0.40 L , Estim Creat Clear Calc 111.57, Est GFR (MDRD) Af Amer 211, Est GFR (MDRD) Non- Af 174, BUN/Creatinine Ratio 55.1 H, Glucose 153 H, Calcium 8.6 Radiology Impression Chest X-Ray 09/23/22 16:56 IMPRESSION: There is a mild right apical pneumothorax. Mild right pulmonary interstitial prominence Electronically Signed: Valerio Jackson DO at 17:14 EDT , ADDENDUM: 09/23/22 1725 IMPRESSION: There is a mild right apical pneumothorax. Mild right pulmonary interstitial prominence N.B. : The above Results were Read Back by Valerio Jackson DO to Noris Albert MD, and understanding confirmed on 09/23/2022 17:18:11 (ET). Electronically Signed: Valerio Jackson DO at 17:14 EDT , Chest X-Ray 09/23/22 20:40 IMPRESSION: Right basilar possible infiltrate.. Small right apical pneumothorax similar to previous study. Electronically Signed: Valerio Jackson DO at 21:14 EDT , Chest X-Ray 09/24/22 06:00 IMPRESSION: COPD with stable small residual right pneumothorax and mild right basilar opacity. Electronically Signed: Dann Alston MD at 7:57 EDT , Charges/Coding Visit Charges Inpatient E&M: 26532 Init Hosp L2
--- NOTE | 2022-09-24 10:10 | CASEMGMT ---
TIA SYLVESTER admission note: TIA SYLVESTER to room. Pt resting in bed. TIA SYLVESTER assessment was completed by this physician underwriter previously on 09/20/22 during pt's last admission, this info was reviewed w/pt and remains unchanged, except for pt would like to get any new Rx's from [facility] @ discharge. This was updated in [facility] PCP: Dr Brown Specialists: Dr Pepper-pulmonology Preferred Pharmacy: [facility] Insurance: MMO Prescription Benefit:?yes LNOK: , Dann Living Arrangements: Lives w/ in one-story home w/3 steps to enter. Independent. Transportation: DME: States has the following DME:?Has O2 through [employer] @ 4 L/M continuously, pulse ox, nebulizer, and BP cuff. Pt also has a walker that she does not use. Pt states her can bring in her portable O2 tank @ d/c. ? Pt states no need for further DME at this time.? HHC/SNF: No hx of SNF but has had HHC in the past. Pt declines wanting HHC. Discussed Pt Link and questions answered. Pt states is agreeable to consult. Palliative Care: Discussed Palliative care w/pt again and further questions answered. Pt thanked TIA SYLVESTER for the info, and is still declining wanting referral at this time, but states she will keep thinking about it and is aware she can contact them if she decides she is interested in them. Pt wishes to return home and states has no concerns with going home at time of discharge.? Pt voices no further concerns/needs at this time.? PLAN: ?Home w/Pt link consult in place. Pipe VALDES RN, CM
--- NOTE | 2022-09-24 13:17 | CHAPLAIN ---
Type of Pastoral Visit _x__ Initial Visit ___ Follow-up Visit ___ On-call Visit ___ General Patient Visit ___ Spiritual Assessment ___ Family Conference ___ Bereavement ___ Rapid Response ___ Code Blue ___ Other (describe below) Pastoral Care Referral From _x__ Patient ___ Family ___ Nurse ___ Physician ___ Easement Worker ___ System Designer ___ Other (describe below) Sacrament/Intervention _x__ Active listening ___ Anointing ___ Jehovah'S Witness ___ Bereavement ___ Communion _x__ Maria Isabel exploration ___ ___ Life review _x__ Prayer ___ Reconciliation ___ Sacrament of Sick _x__ Supportive presence ___ Wedding ___ Other (describe below) Pastoral Comments patient encouraged to talk slowly and sparingly as she has respiratory strain; pt is very welcoming and asks for spiritual care support and prayer for her health and her fears; pt speaks of both parents dying at about same age as herself; pt desires to live longer and also to increase her spirituality; pt is given presence, time, and prayers for support; pt expresses appreciation for the care
--- NOTE | 2022-09-24 17:25 | RAD_ITS ---
We are attempting to reach an attending provider to discuss findings. An addendum with communication details will be sent when the communication is complete. STUDY: XR Chest 1 View 09/24/2022 5:22 PM REASON FOR EXAM: Female, 56 years old. SOB COMPARISON: Study done earlier today. TECHNIQUE: XR Chest 1 View FINDINGS: Since the prior study, there has been enlargement of the right pneumothorax. This is presently over 35% in size. Mild shift of the mediastinum to the left side. Tension pneumothorax cannot be excluded. Normal heart size. Normal elizabeth. Prominent appearing increased interstitial lung markings. Normal visualized pulmonary arteries. There is atherosclerotic calcification of the aortic arch with tortuosity. There are diffuse degenerative changes of the visualized thoracic spine. There is degenerative osteoarthritis of the bilateral shoulders. There are no acute findings of the upper abdomen. RAD/Chest 1 View (Portable) IMPRESSION: Since the prior study, there has been enlargement of the right pneumothorax. This is presently over 35% in size. Mild shift of the mediastinum to the left side. Tension pneumothorax cannot be excluded. Non standard communication findings protocol was initiated. 09/24/2022 5:52 PM Electronically Signed: Heath Nobles MD at 17:54 EDT ,
[2022-09-24] MEDS: Albuterol 2.5 MG/3 ML VIAL.NEB. INHALATION (17:44)
--- NOTE | 2022-09-24 17:55 | NURSING ---
Patient became suddenly distressed and SOB with accessory muscle use and tripoding. Placed back on monitoring tech. Dr Mcdowell and Dr Camp both notified, patient returned to ICU status, Dr Camp coming to bedside. Stat CXR ordered and obtained. Dr Garcia and Dr Camp came to bedside, 8 Fr chest tube placed by Dr Garcia with improvement to patients distress almost immediately. Follow up CXR obtained to verify tube placement and viewed at bedside by Dr Garcia and Dr Camp. [facility], he was updated in person by Dr Garcia. Patient tolerated procedure without complications. Respirations remain labored though vastly improved, will continue to monitor.
--- NOTE | 2022-09-24 18:19 | PCM.OPRPT ---
Report of Operation Date of Procedure: 09/24/22 Pre-Operative Diagnosis: increased Right PTX, tachycardia Post-Operative Diagnosis: same Surgery/Procedure Performed:: insertion of 8 Fr right chest tube Surgeon: Korina Garcia Type of Anesthesia: Local Specimen's removed: none Estimated Blood Loss (mL): <5 cc Description of Procedure: Indications 56-year-old female with a previous iatrogenic right pneumothorax which resolved during the hospitalization after 8 Azeri chest tube was placed. Patient came back in with respiratory distress. Patient was on BiPAP overnight on her 4 L nasal cannula during the day but started having increasing distress/oxygen needs and repeat chest x-ray showed a right pneumothorax greater than 35%. Emergent right chest tube was placed. Description of the procedure: Patient was placed supine on her back with her right arm elevated. Anterior axillary line was prepped and draped in usual sterile fashion. Local anesthesia of 1% lidocaine with was infiltrated inferior and superior rib space and pleura at site of planned entry. Catheter and needle was placed just over the rib into the pleural space air was aspirated and the catheter was slid over the needle directed superiorly. Stopcock was attached along with connection tubing to attach the Pleur-evac at -20 suction, + leak. After placement patient was in less respiratory distress. Chest x-ray was obtained and showed good placement of the catheter as well as resolution of the pneumothorax?per my read. Patient tolerated procedure well. Complications none
--- NOTE | 2022-09-24 18:20 | RAD_ITS ---
STUDY: XR Chest 1 View 09/24/2022 6:17 PM REASON FOR EXAM: Female, 56 years old. Chest tube insertion COMPARISON: Study done earlier today. TECHNIQUE: XR Chest 1 View FINDINGS: Since the prior study, there has been placement of a right chest tube. There is a small residual right pneumothorax. This is presently less than 5% in size. Resolution of the shift of the mediastinum to the left side. Right chest subcutaneous emphysema. Normal heart size. Normal elizabeth. Prominent appearing increased interstitial lung markings. Normal visualized pulmonary arteries. There is atherosclerotic calcification of the aortic arch with tortuosity. There are diffuse degenerative changes of the visualized thoracic spine. There is degenerative osteoarthritis of the bilateral shoulders. There are no acute findings of the upper abdomen. RAD/Chest 1 View (Portable) IMPRESSION: Since the prior study, there has been placement of a right chest tube. There is a small residual right pneumothorax. This is presently less than 5% in size. Resolution of the shift of the mediastinum to the left side. Right chest subcutaneous emphysema. Electronically Signed: Heath Nobles MD at 18:30 EDT ,
[2022-09-24] MEDS: Acetaminophen 325 MG Tablet 650 MG PO (19:33)
[2022-09-24] MEDS: oxyCODONE 5 MG Tablet PO (20:33)
[2022-09-24] MEDS: Ondansetron 4 MG/2 ML Vial IV (20:39)
[2022-09-25] VITALS (35 sets, daily range): BP systolic 106–172; BP diastolic 66–113; PULSE 75–135; RESP 14–36; TEMP 36.4–37.5; O2SAT 94–100; BMI 17.2
[2022-09-25] MEDS: Ipratropium/Albuterol Sulfate 3 ML AMPUL.NEB INHALATION ×4 (00:57→18:36)
[2022-09-25] MEDS: Acetaminophen 325 MG Tablet 650 MG PO ×2 (01:27→08:00)
[2022-09-25 04:14] LABS: Absolute Lymphocyte Count 0.81 X10^3/uL (0.83-4.51); Absolute Neutrophil Count 15.3 X10^3/uL (2.0-7.7); Basophil# 0.01 X10^3/uL; Basophil% 0.1 % (0-1); Hematocrit 37.7 % (37-47); Hemoglobin 11.9 g/dL (12.0-15.0); Lymphocyte # 0.81 X10^3/ul (0.83-4.51); Lymphocyte % 4.8 % (19-41); Mean Corp Hgb Conc 31.6 g/dL (32-36); Mean Corpuscular Hgb 29.5 pg (27.0-32.0); Mean Corpuscular Volume 93.5 fL (81-99); Mean Platelet Vol. 9.9 fl (6.2-12.0); Monocyte# 0.74 X10^3/uL; Monocyte% 4.4 % (0-10); NRBC Flagged by Analyzer 0 % (0-5); Neutrophil # 15.29 X10^3/uL (2.7-7.7); Neutrophil % 90.2 % (47-70); Platelet Count 237 K/mm3 (150-450); RBC Distribution Width CV 13.5 % (11.6-14.6); RBC Distribution Width SD 46.4 fl (35.1-43.9); Red Blood Count 4.03 M/mm3 (4.2-5.4); White Blood Count 16.9 K/mm3 (4.4-11.0)
[2022-09-25 04:33] LABS: Anion Gap 4 (5-15); BUN 27 mg/dL (7-18); Calcium,Total 8.9 mg/dL (8.5-10.1); Chloride 105 mmol/L (98-107); Creatinine, Serum 0.46 mg/dL (0.55-1.02); EST Glomerular Filtration Rate 149 mL/min (>60); Est Glom Filt Rate - Afr Amer 180 mL/min (>60); Estimated Creatinine Clearance 97.02 ml/min; Glucose 161 mg/dL (74-106); Potassium 4.2 mmol/L (3.5-5.1); Sodium Level 139 mmol/L (136-145)
[2022-09-25] MEDS: Methylprednisolone Sod Succ 40 MG/ML VIAL IV ×3 (05:02→20:20)
--- NOTE | 2022-09-25 05:55 | RAD_ITS ---
STUDY: X-RAY CHEST REASON FOR EXAM: Female, 56 years old. Chest tube -- portable- keep on suction TECHNIQUE: Single AP portable view of the chest. COMPARISON: Comparison is made with prior study dated September 24, 2022 at 6:21 PM. FINDINGS: A right-sided small caliber chest tube in place and is in the upper lateral aspect of the right hemithorax. No significant pneumothorax seen. Mild right basilar atelectasis. Minimal amount of right subcutaneous emphysema. RAD/Chest 1 View (Portable) IMPRESSION: Status post small-caliber right-sided chest tube. No significant pneumothorax is seen. Minimal amount of right subcutaneous emphysema Electronically Signed: Clint Grimaldo MD at 8:47 EDT ,
--- NOTE | 2022-09-25 07:22 | PCM.PN.HOSP ---
Reason for Visit Reason for Visit: Diagnoses Unspecified severe protein-calorie malnutrition (09/23/22) Chronic obstructive pulmonary disease with (acute) exacerbation (09/23/22) Postprocedural pneumothorax (09/23/22) Subjective Subjective Gets short of breath easily. Objective Data Objective Data Vital Signs: Vital Signs Temp Pulse Resp BP Pulse Ox O2 Del Method O2 Flow Rate 36.6 C 100 27 H 130/95 H 100 Nasal Cannula 4 09/25/22 03:00 09/25/22 07:00 09/25/22 07:00 09/25/22 07:00 09/25/22 07:00 09/25/22 07:00 09/25/22 07:00 FiO2 50 09/24/22 17:45 Oxygen Flow Rate (L/min) 4 Oxygen Delivery Method Nasal Cannula Weight: 47 kg Body Mass Index (BMI) 17.2 Intake & Output: Intake and Output for Last 24 Hours 09/23/22 09/24/22 09/25/22 23:59 23:59 23:59 Intake Total 0 / 0 1480 / 1480 Output Total 0 / 0 650 / 650 100 / 100 Balance 0 / 0 830 / 830 -100 / -100 Medical Nutrition Assessment Dietitian: Malnutrition Criteria Met Start: 09/24/22 11:11 Freq: Status: Active Protocol: Document 09/24/22 11:12 RMA (Rec: 09/24/22 11:12 RMA [id number]) Nutrition Malnutrition Evidence of Malnutrition Exists Yes Malnutrition (severe): Acute Illness/Injury,Chronic Evidenced By Suboptimal Energy Intake ( Severe),Weight Loss (Severe), Physical Changes (Severe) Clinical Problem Chronic Disease or Condition Related Malnutrition Etiology Severe protein-calorie malnutrition in the context of acute on chronic disease related to inadequate oral intake Signs/Symptoms as evidenced by 3% weight loss x 1 week, BMI 16.9, PO meeting less than 50% estimated nutrition needs x past 1 weeks and nutrition focused physical exam showing obvious muscle wasting and fat depletion in the face, clavicle, temporal area and orbitals Status Active Problem Recommendation Dietitian Recommendations/Changes Continue liberalized regular diet. Continue 120mL ensure clear 3 times per day w/ medpass as ordered. Will add 240mL ensure plus high protein BID w/ breakfast and dinner--likes vanilla and chocolate flavor. Additional ONS as needed; will adjust to optimize oral intake and prevent further weight loss. Lab / Micro Data 09/25/22 04:00 09/25/22 04:00 Labs: Laboratory Results - last 24 hr 09/25/22 04:00: WBC 16.9 H, RBC 4.03 L, Hgb 11.9 L, Hct 37.7, MCV 93.5, MCH 29.5, MCHC 31.6 L, RDW Std Deviation 46.4 H, RDW Coeff of Dejuan 13.5, Plt Count 237, MPV 9.9, Immature Gran % (Auto) 0.500, Neut % (Auto) 90.2 H, Lymph % (Auto) 4.8 L, [place] % (Auto) 4.4, Eos % (Auto) 0.0, Baso % (Auto) 0.1, Absolute Neuts (auto) 15.3 H, Absolute Lymphs (auto) 0.81 L, Nucleated RBC % 0, Sodium 139, Potassium 4.2, Chloride 105, Carbon Dioxide 30.0, Anion Gap 4 L, BUN 27 H, Creatinine 0.46 L, Estim Creat Clear Calc 97.02, Est GFR (MDRD) Af Amer 180, Est GFR (MDRD) Non-Af 149, BUN/Creatinine Ratio 59.0 H, Glucose 161 H, Calcium 8.9 Radiography Diagnostic Testing: Radiology Impression Chest X-Ray 09/24/22 06:00 IMPRESSION: COPD with stable small residual right pneumothorax and mild right basilar opacity. Electronically Signed: Dann Alston MD at 7:57 EDT , Chest X-Ray 09/24/22 17:25 IMPRESSION: Since the prior study, there has been enlargement of the right pneumothorax. This is presently over 35% in size. Mild shift of the mediastinum to the left side. Tension pneumothorax cannot be excluded. Non standard communication findings protocol was initiated. 09/24/2022 5:52 PM Electronically Signed: Heath Nobles MD at 17:54 EDT , ADDENDUM: 09/24/22 1827 IMPRESSION: Since the prior study, there has been enlargement of the right pneumothorax. This is presently over 35% in size. Mild shift of the mediastinum to the left side. Tension pneumothorax cannot be excluded. Non standard communication findings protocol was initiated. 09/24/2022 5:52 PM N.B. : The above Results were Read Back by Heath Nobles MD to Dc Camp MD, and understanding confirmed on 09/24/2022 18:20:20 (ET). Electronically Signed: Heath Nobles MD at 17:54 EDT , ADDENDUM: 09/24/22 1842 IMPRESSION: undefined Chest X-Ray 09/24/22 18:20 IMPRESSION: Since the prior study, there has been placement of a right chest tube. There is a small residual right pneumothorax. This is presently less than 5% in size. Resolution of the shift of the mediastinum to the left side. Right chest subcutaneous emphysema. Electronically Signed: Heath Nobles MD at 18:30 EDT , Physical Exam Const alert and no apparent distress Constitutional Narrative: up in bed. no respiratory distress. no conversational dyspnea. Resp Resp Narrative: diminished throughout. Cardio regular rate, regular rhythm, S1 normal heart sound and S2 normal heart sound GI normal to inspection, nondistended, normoactive bowel sounds, soft to palpation, non-tender and non-distended Assessment & Plan Assessment/Plan (1) COPD with exacerbation: PLAN: received methylpred in ED. Will scheduled BDs Wean oxygen as able. Weaned off bipap. (2) Iatrogenic pneumothorax: PLAN: stable 03/27 CT guided lung Bx. Had been stable, then got worse on 09/24. Chest tube was placed that evening. Avoid BiPAP if able. (3) Severe protein-calorie malnutrition: PLAN: Add supplements PLAN: Plan Chronic conditions: Right upper and right lower lobe nodular densities? Patient underwent biopsies on 09/19/2022 with complications described above. Biopsy negative for malignant cells. DVT prophylaxis - On enoxaparin Code: Full No documented hypoxia, therefore I cannot diagnose acute hypoxic respiratory failure. I cannot rule it in, nor rule it out. Charges/Coding Visit Charges Inpatient E&M: 89305 Subs Hosp L2
[2022-09-25] MEDS: Ensure Clear 120 ML Liquid PO (08:00)
--- NOTE | 2022-09-25 08:37 | PN.SURG_ITS ---
Subjective Subjective Patient is a 56 y/o I am following in conjunction with Dr. Garcia. Patient notes minimal amount of shortness of breath overnight. CXR this morning notes no significant pneumothorax is seen. Objective Data Objective Data Vital Signs: Vital Signs Temp Pulse Resp BP Pulse Ox O2 Del Method O2 Flow Rate 97.7 F L 116 H 25 H 136/81 H 95 Nasal Cannula 4 09/25/22 08:00 09/25/22 08:00 09/25/22 08:00 09/25/22 08:00 09/25/22 08:00 09/25/22 08:00 09/25/22 08:00 FiO2 50 09/24/22 17:45 Oxygen Flow Rate (L/min) 4 Oxygen Delivery Method Nasal Cannula Weight: 103 lb 9.876 oz Body Mass Index (BMI) 17.2 Intake & Output: Intake and Output for Last 24 Hours 09/23/22 09/24/22 09/25/22 23:59 23:59 23:59 Intake Total 0 / 0 1480 / 1480 Output Total 0 / 0 650 / 650 100 / 100 Balance 0 / 0 830 / 830 -100 / -100 Medical Nutrition Assessment Dietitian: Malnutrition Criteria Met Start: 09/24/22 11:11 Freq: Status: Active Protocol: Document 09/24/22 11:12 RMA (Rec: 09/24/22 11:12 RMA [id number]) Nutrition Malnutrition Evidence of Malnutrition Exists Yes Malnutrition (severe): Acute Illness/Injury,Chronic Evidenced By Suboptimal Energy Intake ( Severe),Weight Loss (Severe), Physical Changes (Severe) Clinical Problem Chronic Disease or Condition Related Malnutrition Etiology Severe protein-calorie malnutrition in the context of acute on chronic disease related to inadequate oral intake Signs/Symptoms as evidenced by 3% weight loss x 1 week, BMI 16.9, PO meeting less than 50% estimated nutrition needs x past 1 weeks and nutrition focused physical exam showing obvious muscle wasting and fat depletion in the face, clavicle, temporal area and orbitals Status Active Problem Recommendation Dietitian Recommendations/Changes Continue liberalized regular diet. Continue 120mL ensure clear 3 times per day w/ medpass as ordered. Will add 240mL ensure plus high protein BID w/ breakfast and dinner--likes vanilla and chocolate flavor. Additional ONS as needed; will adjust to optimize oral intake and prevent further weight loss. Lab / Micro Data 09/25/22 04:00 09/25/22 04:00 Labs: Laboratory Results - last 24 hr 09/25/22 04:00: WBC 16.9 H, RBC 4.03 L, Hgb 11.9 L, Hct 37.7, MCV 93.5, MCH 29.5, MCHC 31.6 L, RDW Std Deviation 46.4 H, RDW Coeff of Dejuan 13.5, Plt Count 237, MPV 9.9, Immature Gran % (Auto) 0.500, Neut % (Auto) 90.2 H, Lymph % (Auto) 4.8 L, [place] % (Auto) 4.4, Eos % (Auto) 0.0, Baso % (Auto) 0.1, Absolute Neuts (auto) 15.3 H, Absolute Lymphs (auto) 0.81 L, Nucleated RBC % 0, Sodium 139, Potassium 4.2, Chloride 105, Carbon Dioxide 30.0, Anion Gap 4 L, BUN 27 H, Creatinine 0.46 L, Estim Creat Clear Calc 97.02, Est GFR (MDRD) Af Amer 180, Est GFR (MDRD) Non-Af 149, BUN/Creatinine Ratio 59.0 H, Glucose 161 H, Calcium 8.9 Radiography Diagnostic Testing: Radiology Impression Chest X-Ray 09/24/22 17:25 IMPRESSION: Since the prior study, there has been enlargement of the right pneumothorax. This is presently over 35% in size. Mild shift of the mediastinum to the left side. Tension pneumothorax cannot be excluded. Non standard communication findings protocol was initiated. 09/24/2022 5:52 PM Electronically Signed: Heath Nobles MD at 17:54 EDT Reading Location ID and State: [facility] / [place] , Service support , ADDENDUM: 09/24/22 3039 IMPRESSION: Since the prior study, there has been enlargement of the right pneumothorax. This is presently over 35% in size. Mild shift of the mediastinum to the left side. Tension pneumothorax cannot be excluded. Non standard communication findings protocol was initiated. 09/24/2022 5:52 PM N.B. : The above Results were Read Back by Heath Nobles MD to Dc Camp MD, and understanding confirmed on 09/24/2022 18:20:20 (ET). Electronically Signed: Heath Nobles MD at 17:54 EDT , ADDENDUM: 09/24/22 1842 IMPRESSION: undefined Chest X-Ray 09/24/22 18:20 IMPRESSION: Since the prior study, there has been placement of a right chest tube. There is a small residual right pneumothorax. This is presently less than 5% in size. Resolution of the shift of the mediastinum to the left side. Right chest subcutaneous emphysema. Electronically Signed: Heath Nobles MD at 18:30 EDT , Physical Exam Chest Chest Narrative: Right chest- chest tube is intact Resp Effort and Inspection: tachypneic Auscultation: diminished lung sounds right upper Assessment & Plan Assessment/Plan (1) Iatrogenic pneumothorax: PLAN: Patient reviewed with Dr. Garcia Plan to continue chest tube to wall suction as patient has a continued small leak Obtain repeat CXR in the morning We will continue to monitor this patient Charges/Coding Visit Charges Inpatient E&M: 79092 [facility] L1
[2022-09-25] MEDS: Enoxaparin 40 MG/0.4 ML Syringe SC (09:35)
[2022-09-25] MEDS: Albuterol 2.5 MG/3 ML VIAL.NEB. INHALATION (11:08)
[2022-09-25] MEDS: 0.9% Saline Lock 10 ML Syringe IV ×2 (13:18→20:10)
[2022-09-25] MEDS: LORazepam 2 MG/ML Syringe 0.5 MG IV (18:45)
--- NOTE | 2022-09-25 18:50 | RAD_ITS ---
STUDY: XR Chest 1 View 09/25/2022 6:36 PM REASON FOR EXAM: Female, 56 years old. shortness of breath COMPARISON: Study done earlier today. TECHNIQUE: XR Chest 1 View FINDINGS: Since the prior study, there has been enlargement of the right pneumothorax. This is roughly 35% in size. Right chest tube in place. Right chest subcutaneous emphysema. Normal heart size. Normal elizabeth. Prominent appearing increased interstitial lung markings. Normal visualized pulmonary arteries. There is atherosclerotic calcification of the aortic arch with tortuosity. There are diffuse degenerative changes of the visualized thoracic spine. There is degenerative osteoarthritis of the bilateral shoulders. There are no acute findings of the upper abdomen. RAD/Chest 1 View (Portable) IMPRESSION: Since the prior study, there has been enlargement of the right pneumothorax. This is roughly 35% in size. Right chest tube in place. Right chest subcutaneous emphysema. Electronically Signed: Heath Nobles MD at 19:07 EDT ,
--- NOTE | 2022-09-25 19:10 | RAD_ITS ---
STUDY: XR Chest 1 View 09/25/2022 7:10 PM REASON FOR EXAM: Female, 56 years old. Ett placement -- ATTEMPT 1 COMPARISON: Study done earlier today. TECHNIQUE: XR Chest 1 View FINDINGS: Since the prior study, there has been enlargement of the right pneumothorax. This is roughly 35% in size. Right chest tube in place. Right chest subcutaneous emphysema. There is an endotracheal tube in place. The tip is 13 mm above the tapan. NG tube visualized. Tip is below the field of view. Normal heart size. Normal elizabeth. Prominent appearing increased interstitial lung markings. Normal visualized pulmonary arteries. There is atherosclerotic calcification of the aortic arch with tortuosity. There are diffuse degenerative changes of the visualized thoracic spine. There is degenerative osteoarthritis of the bilateral shoulders. There are no acute findings of the upper abdomen. RAD/Chest 1 View (Portable) IMPRESSION: Since the prior study, there has been enlargement of the right pneumothorax. This is roughly 35% in size. Right chest tube in place. Right chest subcutaneous emphysema. There is an endotracheal tube in place. The tip is 13 mm above the tapan. NG tube visualized. Tip is below the field of view. Electronically Signed: Haeth Nobles MD at 19:30 EDT ,
--- NOTE | 2022-09-25 19:13 | PRO.PCM_ITS ---
Procedure Report Date of Procedure: 09/25/22 Rapid sequence intubation for acute on chronic hypoxic respiratory failure due to enlarging right pneumothorax: Patient had repeat chest x-ray ordered for the evening. Patient got very short of breath, respiratory distress, respiratory rate, 44/min, tachycardic heart rate in 130s and rapid response was called. Rapid response was called and was attended by Dr. Ford and he was there before me. He felt like patient having seizure therefore Ativan 1 mg IV was given and loading dose of Keppra [address] Dann Ford. chest x-ray stat done shows enlarging right pneumothorax about roughly 35% in size with right chest tube in place. At that time it was decided to intubation. Dr. Ford also called and talked to Dr. Lassiter and intubation is not contraindicated for pneumothorax if patient has chest tube. He also tried to call Dr. Pepper but he did not respond Procedure note Since patient is in hyperadrenergic response with sinus tachycardia, tachypnea and respiratory distress. Etomidate 20 mg IV was given. Under Gleidoscope blade 4 size, upper airway, posterior pharynx, epiglottis vallecula and vocal cords was well visualized with view but patient closes her glottis and cords when I tried to intubate her. After that I gave succinylcholine 100 mg IV and then ET tube 7.5 mm was advanced with clear view of ventricular, epiglottis and vocal cords. Patient was still closing the vocal cords. Colorimetric color change was seen. Chest was auscultated and air entry equal on both side. Portable chest x-ray was obtained and ET tube about 1 to 2 cm above tapan. Patient will be sedated IV propofol and fentanyl drip. Film Inspector consulted.
[2022-09-25] MEDS: Propofol 10MG/Ml 1,000 MG/100 ML Bottle 2.8 MG CONT INF (19:15)
--- NOTE | 2022-09-25 19:16 | RAD_ITS ---
STUDY: XR Chest 1 View 09/25/2022 7:10 PM REASON FOR EXAM: Female, 56 years old. Ett placement -- ATTEMPT 2 COMPARISON: Study done earlier today. TECHNIQUE: XR Chest 1 View FINDINGS: Stable right pneumothorax. Right chest tube in place. Right chest subcutaneous emphysema. There is an endotracheal tube in place. The tip is 34 mm above the tapan. NG tube visualized. Tip is below the field of view. Normal heart size. Normal elizabeth. Prominent appearing increased interstitial lung markings. Normal visualized pulmonary arteries. There is atherosclerotic calcification of the aortic arch with tortuosity. There are diffuse degenerative changes of the visualized thoracic spine. There is degenerative osteoarthritis of the bilateral shoulders. There are no acute findings of the upper abdomen. RAD/Chest 1 View (Portable) IMPRESSION: Stable right pneumothorax. Right chest tube in place. Right chest subcutaneous emphysema. There is an endotracheal tube in place. The tip is 34 mm above the tapan. NG tube visualized. Tip is below the field of view. Electronically Signed: Heath Nobles MD at 19:31 EDT ,
--- NOTE | 2022-09-25 19:18 | NURSING ---
1825-pt with c/o SOB, in respiratory distress. Dr Mcdowell notified and cxr ordered. RT in room giving breathing tx 1840-pt with jerking movements to upper extremites, not responding to verbal or painful stimuli. CURTAIN STITCHER called. See CURTAIN STITCHER notes. notified
[2022-09-25] MEDS: fentaNYL drip 100 ML 5 MCG CONT INF (19:40)
--- NOTE | 2022-09-25 19:49 | PN.HOSP_ITS ---
Hospitalist Note I responded to a rapid response tonight approximately 6:45 PM, patient was having respiratory distress in the ICU and exhibited tonic-clonic seizure activity, her oxygen saturation was low, IV Ativan was administered, I contacted the patient's by phone-he could not make up his mind initially whether the patient should be intubated but then consented to the intubation, the patient was intubated by Dr. Penaloza without difficulty, chest x-ray showed 30 to 40% pneumothorax on the right, ET tube was pulled back slightly for better placement, general surgery was contacted (Dr Cristobal) and she arrived to place another chest tube. I had a discussion with and it was suggested that the patient be transferred to a facility with a cardiothoracic surgeon. I picked [facility] and luckily they had 2 ICU beds available, I talked with a Dr. Knowles (critical care) by phone and he accepted the patient. I talked to the patient's who had arrived at the hospital and told him that she would be transferred to [facility]. I attempted to get a hold of Dr. Pepper, he did not answer his cell phone after repeated attempts and his home phone was not answered.
--- NOTE | 2022-09-25 19:49 | OP.PCM_ITS ---
Report of Operation Date of Procedure: 09/25/22 Pre-Operative Diagnosis: Right pneumothorax, respiratory failure-hypoxia Post-Operative Diagnosis: Same Surgery/Procedure Performed:: Exchange of right chest tube from 8 Georgian to 28 Georgian Surgeon: Korina Garcia Type of Anesthesia: Local Drains: 28 Georgian right chest tube Description of Procedure: Indication:: Patient previously had 8 Georgian chest tube which had the lung expanded this morning however repeat chest x-ray patient had a possible seizure showed pneumothorax as the 8 Georgian tube was kinked just inside the skin per x- ray. Plan to enlarged chest tube. Patient also required intubation due to the possible seizure?right before placement of larger chest tube.. Description of procedure: Patient's anterior axillary line was prepped and draped in usual sterile fashion. Patient is 8 Georgian chest tube was removed. Patient's right arm was placed above her head. Local anesthesia of 1% lidocaine with was used. Incision was made with 15 blade scalpel. Tonsils directed over the rib into the pleural space and tavares of air was confirmed. An 28 Georgian chest tube was placed directed superiorly and at 15 cm at the skin. There was occasional bubbles in the pleural VAC. Chest tube was sutured with 0 silk suture and the incision also had a horizontal mattress suture placed. Xeroform and 4 x 4 drain sponges as tape was used to secure the chest tube. Chest x-ray was ordered.--Addendum ? chest x-ray showed chest tube in good position at the apex with no pneumothorax per my read. Complications none
--- NOTE | 2022-09-25 19:55 | PN_ITS ---
<Statement entered by Loki Pepper MD - 09/25/22 20:17> This document has been reviewed and signed. Pathology is negative, patient is aware. Subjective Subjective The patient did well over night. Some chest pain but less then the previous night. Pt has appetite and reports less SOB. Did not use positive pressure last pm. Had Bipap available. Used oxygen 4 lter. Objective Data Objective Data Vital Signs: Vital Signs Temp Pulse Resp BP Pulse Ox O2 Del Method O2 Flow Rate 97.6 F L 130 H 24 H 172/113 H 95 Mechanical Ventilator 4 09/25/22 16:00 09/25/22 19:00 09/25/22 19:00 09/25/22 19:00 09/25/22 19:00 09/25/22 19:00 09/25/22 18:00 FiO2 50 09/24/22 17:45 Oxygen Flow Rate (L/min) 4 Oxygen Delivery Method Mechanical Ventilator Weight: 47 kg Body Mass Index (BMI) 17.2 Intake & Output: Intake and Output for Last 24 Hours 09/23/22 09/24/22 09/25/22 23:59 23:59 23:59 Intake Total 0 / 0 1480 / 1480 490 / 490 Output Total 0 / 0 650 / 650 750 / 750 Balance 0 / 0 830 / 830 -260 / -260 Medical Nutrition Assessment Dietitian: Malnutrition Criteria Met Start: 09/24/22 11:11 Freq: Status: Active Protocol: Document 09/24/22 11:12 RMA (Rec: 09/24/22 11:12 RMA [id number]) Nutrition Malnutrition Evidence of Malnutrition Exists Yes Malnutrition (severe): Acute Illness/Injury,Chronic Evidenced By Suboptimal Energy Intake ( Severe),Weight Loss (Severe), Physical Changes (Severe) Clinical Problem Chronic Disease or Condition Related Malnutrition Etiology Severe protein-calorie malnutrition in the context of acute on chronic disease related to inadequate oral intake Signs/Symptoms as evidenced by 3% weight loss x 1 week, BMI 16.9, PO meeting less than 50% estimated nutrition needs x past 1 weeks and nutrition focused physical exam showing obvious muscle wasting and fat depletion in the face, clavicle, temporal area and orbitals Status Active Problem Recommendation Dietitian Recommendations/Changes Continue liberalized regular diet. Continue 120mL ensure clear 3 times per day w/ medpass as ordered. Will add 240mL ensure plus high protein BID w/ breakfast and dinner--likes vanilla and chocolate flavor. Additional ONS as needed; will adjust to optimize oral intake and prevent further weight loss. Lab / Micro Data Attestation: I reviewed the patient's lab results. 09/25/22 04:00 09/25/22 04:00 Labs: Laboratory Results - last 24 hr 09/25/22 04:00: WBC 16.9 H, RBC 4.03 L, Hgb 11.9 L, Hct 37.7, MCV 93.5, MCH 29.5, MCHC 31.6 L, RDW Std Deviation 46.4 H, RDW Coeff of Dejuan 13.5, Plt Count 237, MPV 9.9, Immature Gran % (Auto) 0.500, Neut % (Auto) 90.2 H, Lymph % (Auto) 4.8 L, Monroe % (Auto) 4.4, Eos % (Auto) 0.0, Baso % (Auto) 0.1, Absolute Neuts (auto) 15.3 H, Absolute Lymphs (auto) 0.81 L, Nucleated RBC % 0, Sodium 139, Potassium 4.2, Chloride 105, Carbon Dioxide 30.0, Anion Gap 4 L, BUN 27 H, Creatinine 0.46 L, Estim Creat Clear Calc 97.02, Est GFR (MDRD) Af Amer 180, Est GFR (MDRD) Non-Af 149, BUN/Creatinine Ratio 59.0 H, Glucose 161 H, Calcium 8.9 Radiography Diagnostic Testing: Radiology Impression Chest X-Ray 09/25/22 05:55 IMPRESSION: Status post small-caliber right-sided chest tube. No significant pneumothorax is seen. Minimal amount of right subcutaneous emphysema Electronically Signed: Clint Grimaldo MD at 8:47 EDT , Chest X-Ray 09/25/22 18:50 IMPRESSION: Since the prior study, there has been enlargement of the right pneumothorax. This is roughly 35% in size. Right chest tube in place. Right chest subcutaneous emphysema. Electronically Signed: Heath Nobles MD at 19:07 EDT , Chest X-Ray 09/25/22 19:10 IMPRESSION: Since the prior study, there has been enlargement of the right pneumothorax. This is roughly 35% in size. Right chest tube in place. Right chest subcutaneous emphysema. There is an endotracheal tube in place. The tip is 13 mm above the tapan. NG tube visualized. Tip is below the field of view. Electronically Signed: Heath Nobles MD at 19:30 EDT , Chest X-Ray 09/25/22 19:16 IMPRESSION: Stable right pneumothorax. Right chest tube in place. Right chest subcutaneous emphysema. There is an endotracheal tube in place. The tip is 34 mm above the tapan. NG tube visualized. Tip is below the field of view. Electronically Signed: Heath Nobles MD at 19:31 EDT , Physical Exam Const alert, oriented x3 and no apparent distress Constitutional Narrative: no accessory muscle use General Appearance: cooperative HEENT normocephalic, head/scalp atraumatic, hearing grossly normal bilaterally, external ears normal, EAC's normal, TM's normal bilaterally, external nose normal, nasal mucous membranes and turbinates normal, moist oral mucous membranes, oropharynx normal, dentition normal and gingiva normal Mouth: oral and palatal mucosa normal Throat: posterior oropharynx normal Eyes EOMs intact bilaterally General Eye: normal appearance of both eyes Neck supple and no JVD Lymph Lymphatic: no lymphadenopathy noted Chest Chest Narrative: Reduced air mvt, cough, Some increase in work of breathing, barreling of the chest. exp wheeze, i to e 1-3 no rales some rhonchi Chest: crepitus other (right lat chest) Cardio regular rate, regular rhythm, S1 normal heart sound, S2 normal heart sound and no murmurs Palpation: normal PMI GI normal to inspection, nondistended, normoactive bowel sounds, soft to palpation, non-tender, non-distended, hepatosplenomegaly, no masses and no bruits Extremity normal to inspection, full ROM, normal capillary refill, no joint enlargement, no clubbing, cyanosis or edema and no pedal edema Skin no rashes or lesions noted, no wounds, no jaundice, no petechiae and no mottling Neuro oriented x3 Sensorium / Orientation: awake, alert and oriented to person Speech: speech normal Psych mental status grossly normal, thought process normal, cooperative, affect no rmal, speech normal and activity/motor behavior normal Assessment & Plan Assessment/Plan (1) Acute and chronic respiratory failure with hypoxia: PLAN: see note (2) COPD with exacerbation: PLAN: see note (3) Iatrogenic pneumothorax: PLAN: Patient reviewed with Dr. Garcia Plan to continue chest tube to wall suction as patient has a continued small leak Obtain repeat CXR in the morning We will continue to monitor this patient PLAN: Plan Pneumothorax: Chest tube w/ crepitus, no bleeding, less air leak per title breath then last pm. chest film today shows good expansion of r lung. Suggest: cont oxygen 4 liter. It pt is SOB or tired Bipap 10/5 w/ oxygen, higher pressures may cause worsening air leak Daily x ray Current tube is adequate for now COPD: Pt is currently getting solumedrol 40 q 8 and alb and atrovent nebs. pt has persistent wheeze. Long exp very little air mvt. End stage lung disease, at risk for resp failure/ need for non invasive ventilation. Acute on Chronic resp failure: cont w/ ICU observation, ABG if worsening sx. Case discussed w/ surgery.
--- NOTE | 2022-09-25 19:55 | RAD_ITS ---
STUDY: X-RAY CHEST REASON FOR EXAM: Female, 56 years old. chest tube placement TECHNIQUE: Single AP portable view of the chest. COMPARISON: 05/15/1912 FINDINGS: Interval removal of a right-sided smallbore thoracostomy tube. Interval placement of a right-sided thoracostomy tube with no pneumothorax. Endotracheal tube and nasogastric tube which are unchanged. The lungs are clear and expanded. There is no demonstrated pleural abnormality. Normal size heart. Normal mediastinum and elizabeth. Normal visualized pulmonary arteries. Normal visualized aortic arch and descending thoracic aorta. Normal visualized thoracic spine. Normal visualized ribs, clavicles, and shoulders. There is no demonstrated abnormality of the visualized soft tissue structures of the upper abdomen. RAD/Chest 1 View (Portable) IMPRESSION: 1. Interval removal of right-sided small bore thoracostomy tube. 2. Interval placement right-sided thoracostomy tube with no pneumothorax. 3. Endotracheal tube and nasogastric tube which are unchanged. 4. No pneumonia or atelectasis. Electronically Signed: Galileo Roy MD at 20:16 EDT ,
[2022-09-25] MEDS: levETIRAcetam IV 1,000 MG/100 ML BAG 400 MG IV (20:11)
--- NOTE | 2022-09-25 20:44 | NURSING ---
Dr. Penaloza and Liliana at bedside. Decision made to intubate d/t acute respiratory decompensation. 1904: #7.5 tube, 24 @ lip; positive color change; BL breath sounds. OG placed, X-Ray at bedside. BL wrist restraints applied to maintain tube/line safety.
[2022-09-25 23:03] LABS: Allen Test Positive; Base Excess 7 mmol/L (-2 to +2); Blood Gas Specimen Type ART; FI02 40; Mode AC; O2 Delivery Device ET Tube; PEEP 5; PO2 107 mmHG (75-100); RR 14; SITE R Radial; SO2 98 % (95-99); Total Carbon Dioxide 32 mmol/L; Vt 450; pCO2 42.9 mmHg (35-45); pH 7.47 (7.35-7.45)
[2022-09-26] VITALS: BP 106/77; PULSE 101; RESP 14; TEMP 37.4; O2SAT 97
[2022-09-26 00:33] VITALS: BP 107/81; PULSE 103; RESP 14; TEMP 37.5; O2SAT 94
--- NOTE | 2022-09-26 00:40 | NURSING ---
Patient being transported to [facility], [facility] transport received full report at bedside and assumed care of patient. Called report to Se at [facility] T3.
--- NOTE | 2022-09-27 14:17 | DS.PCM_ITS ---
Providers Date of Admission: 09/23/22 Primary Care Physician: Dr. Bradford Brown MD Consultations 09/23/22 22:15 Consult: General Surgery Routine Consulting Provider: Dc Camp Reason for Consult: Pneumothorax EMERGENT Consult: No MD Notified: Yes Date Notified: 09/23/22 Time Notified: 22:16 Method of Notification: Verbal 09/24/22 18:30 Consult: Addictions Therapist / Pulmonary Medicine Routine Consulting Provider: Loki Pepper V Reason for Consult: respiratory failure EMERGENT Consult: No Notified: Yes Date Notified: 09/24/22 Time Notified: 18:23 Method of Notification: Verbal 09/25/22 19:27 Consult: Addictions Therapist / Pulmonary Medicine Routine Consulting Provider: Pulmonary Medicine cuate Quail Reason for Consult: INTUBATED ON ventilator EMERGENT Consult: No Notified: Yes Date Notified: 09/25/22 Time Notified: 19:27 Method of Notification: Verbal Reason For Visit: ACUTE RESPIRATORY FAILURE, PNEUMOTHOROX Diagnosis Discharge Diagnosis (1) COPD with exacerbation: Status: Chronic Code(s): J44.1 - Chronic obstructive pulmonary disease with (acute) exacerbation Plan: received methylpred in ED. Will scheduled BDs Wean oxygen as able. Weaned off bipap. (2) Iatrogenic pneumothorax: Status: Resolved Code(s): J95.811 - Postprocedural pneumothorax Plan: stable 2/2 CT guided lung Bx. Had been stable, then got worse on 09/24. Chest tube was placed that evening. 28-chadian chest tube placed emergency on 09/25 as patient developed a worsening PTX despite the 8 chadian chest tube. Surgery recommended transfer to facility with CTS. Patient was transferred to [facility]. (3) Severe protein-calorie malnutrition: Status: Acute Code(s): E43 - Unspecified severe protein-calorie malnutrition Plan: Add supplements (4) Acute and chronic respiratory failure with hypoxia: Status: Chronic Code(s): J96.21 - Acute and chronic respiratory failure with hypoxia Plan: 2/2 worsening pneumothorax. Patient emergently intubated in ICU on the . (5) Seizure: Status: Acute Code(s): R56.9 - Unspecified convulsions Plan: No known seizure history but patient was noted to be shaking. She received a 1x dose of lorazepam and levetiractam. Unclear if this was a seizure Plan Chronic conditions: * Right upper and right lower lobe nodular densities? Patient underwent biopsies on 09/19/2022 with complications described above. Biopsy negative for malignant cells. DVT prophylaxis - On enoxaparin Code: Full Medications at Discharge Home Medications albuterol sulfate 90 mcg/actuation aerosol inhaler (ProAir HFA) 1 - 2 puff i nhalation Q4H PRN PRN Asthma 09/23/16 budesonide 160 mcg-glycopyr 9 mcg-formot 4.8 mcg/actuation HFA inhaler (Breztri Aerosphere) 2 inh inhalation BID 09/19/22 Hospital Course Operations - (chest tube placement x2.) Procedures Intubation Summary of Care Provided Minutes Spent on Discharge: 60 Hospital Course: Patient was admitted with respiratory distress. Patient was just discharged after an iatrogenic pneumothorax for lung mass. Patient had a chest tube at that time but the pneumothorax remained stable. Patient was seen by general surgery and did not feel any chest tube was necessary. Exam was consistent with a COPD exacerbation so she was started on bronchodilators as well as methylprednisolone. Patient was doing well and she was initially admitted to the intensive care unit just for close monitoring but did not require any ICU needs. On the third, she developed acute shortness of breath and patient was found to have increased pneumothorax. Respiratory did have patient on BiPAP periodically. Surgery was called and an 8 Martiniquais chest tube was placed. Patient did have improvement of the pneumothorax with chest tube. Patient was continued to be monitored and was doing well and then again on the evening of the third, she had increased a pneumothorax despite the placement of the chest tube. Pneumothorax on the right which is where the previous pneumothorax was and as well as a chest tube. Patient had some tonic-clonic activity that was concerning for seizure though the patient has never had any documented history of seizures. Patient did receive lorazepam as levetiracetam. Patient was emergently intubated. General surgery was called and placed a 28 Martiniquais chest tube and remove the 8 Martiniquais chest tube. Placement of the chest tube showed resolution of the pneumothorax. But with her recurrent pneumothoraces, was felt best that the patient be transferred to a facility with cardiothoracic surgery. Patient was excepted at [facility]. Patient was transferred there on the third. Weight / BMI Weight Weight: 47 kg Body Mass Index (BMI) 17.2 ABG / Lab / Microbiology Data 09/25/22 04:00 09/25/22 04:00 Meaningful Use Info Meaningful Use Diagnoses (Choose all that apply): None applicable Discharge Plan Admission Admit Date/Time: 09/23/22 19:27 Primary Reason for Your Visit: Pneumothorax. COPD exacerbation. Attending Provider: Dionisio Mcdowell Primary Care Provider: Bradford Brown Consulting Providers: Jimmy Penaloza; Dc Camp; Loki Pepper V; Hakeem Lind; Channing Murguia; David Onofre; Leander Ochoa; Sayra Cook [employer] Discharge Orders/Prescriptions Prescriptions: No Action albuterol sulfate [ProAir HFA] 1 PUFF inhaler 1 - 2 puff inhalation Q4H PRN PRN (Reason: Asthma) Breztri Aerosphere 160-9-4.8 mcg/actuation HFA aerosol inhaler 2 inh INHALATION BID Patient Comments: inhalation 1 puff as directed once daily Referrals / Follow Up: Bradford Brown MD [Primary Care Provider] - Disposition Disposition (needs filled in before D/C Order can be placed): Acute Care Hospital Charges/Coding Visit Charges Inpatient E&M: 06182 Disch Hosp >30min
== END 2022-09-26 00:15 | disposition short-term general hospital (02) | DRG 190 ==
LOC: ED 17:13 → ICU 19:48
PROVIDERS: Family Medicine; Admitting Provider Internal Medicine; Emergency Provider Emergency Medicine; PCP Family Medicine
DX: J44.1 Chronic obstructive pulmonary disease with (acute) exacerbation (principal); J96.21 Acute and chronic respiratory failure with hypoxia; E43 Unspecified severe protein-calorie malnutrition; J95.811 Postprocedural pneumothorax; T79.7XXA Traumatic subcutaneous emphysema, initial encounter; Z68.1 Body mass index [BMI] 19.9 or less, adult; R56.9 Unspecified convulsions; Z87.891 Personal history of nicotine dependence; Z51.5 Encounter for palliative care; Z66 Do not resuscitate; R91.8 Other nonspecific abnormal finding of lung field
CPT/HCPCS: 31500; 31720; 32551; 36415; 36600; 71045; 71046; 77012; 80048; 82803; 83735; 84484; 85025; 85049; 85610; 85730; 88172; 88305; 88313; 93005; 94002; 94003; 94640; 96372; 96374; 96375; 96376; 99156; 99221; 99252; 99285; 99406; J7030; J7050; A4216; C2613; G0378; G0463; J2405

== ENCOUNTER → 2023-08-13 | Outpatient (CLI) | payer OTHER, SELFPAY ==
--- NOTE | 2023-08-13 16:49 | CT_ITS ---
STUDY: CT CHEST WITHOUT CONTRAST REASON FOR EXAM: Female, 57 years old. ABN FINDING OF LUNG FIELD RADIATION DOSAGE (If Supplied By Facility): CTDIvol = ( 6.06 ) mGy, DLP = ( 231.87 ) mGycm TECHNIQUE: Transaxial imaging was performed without the administration of intravenous contrast material. Multiplanar coronal and sagittal images were reformatted. Individualized dose optimization techniques were used for this CT. COMPARISON: Comparison is made with prior study dated July 01, 2022. FINDINGS: CHEST Hyperinflation. Emphysematous changes worse in the upper lobes. Tiny scar in the anterior left lung apex. The previously seen ill-defined density in the upper medial aspect of the right lung apex is not seen at this time. The previously seen 1.9 cm spiculated nodule in the mid aspect of the right upper lobe is not visualized at this time. The previously seen noncalcified nodule in the right middle lobe laterally has decreased in size. It presently measures 6.8 mm. Minimal residual scarring is seen along the anterior lateral aspect of the right lower lobe. There is no demonstrated pleural abnormality. There are calcifications of the coronary arteries. There are small lymph nodes within the mediastinum, which are normal in size and morphology most compatible with reactive lymph hyperplasia. Normal hilar regions. Normal unenhanced pulmonary arteries. There is atherosclerotic calcification of the aortic arch. There are multi-level degenerative changes of the thoracic spine. There is no demonstrated abnormality of the visualized upper abdomen. CT/Chest without Contrast IMPRESSION: Stable emphysematous changes. The multiple nodules seen in the right hemithorax have resolved or decreased in size. No new abnormality is seen. Electronically Signed: Clint Grimaldo MD at 10:57 EDT ,
== END | disposition home or self-care (01) ==
LOC: CT 16:48
PROVIDERS: PCP Family Medicine; Referring Provider Internal Medicine Pulmonary Disease; Visit Provider Internal Medicine Pulmonary Disease
DX: J44.9 Chronic obstructive pulmonary disease, unspecified (principal); R91.8 Other nonspecific abnormal finding of lung field
CPT/HCPCS: 71250

== ENCOUNTER → 2023-11-27 | Outpatient (CLI) | payer OTHER, SELFPAY ==
[2023-11-27 18:03] LABS: Anion Gap 6 (5-15); BUN 12 mg/dL (7-18); BUN/Creat Ratio 22.9 RATIO (10-20); Calcium,Total 9.2 mg/dL (8.5-10.1); Chloride 104 mmol/L (98-107); Cholesterol 211 mg/dL (200); Creatinine, Serum 0.52 mg/dL (0.55-1.02); EST Glomerular Filtration Rate 127 mL/min (>60); Est Glom Filt Rate - Afr Amer 153 mL/min (>60); Glucose 127 mg/dL (74-106); High Density Lipoprotein 83 mg/dL; Potassium 3.6 mmol/L (3.5-5.1); Sodium Level 140 mmol/L (136-145); Triglycerides 68 mg/dL; Very Low Density Lipoprotein 14 mg/dL (5-40)
== END | disposition home or self-care (01) ==
LOC: MFPLAB 16:50
PROVIDERS: PCP Family Medicine; Visit Provider Family Medicine
DX: Z00.00 Encounter for general adult medical examination without abnormal findings (principal)
CPT/HCPCS: 36415; 80048; 80061

== ENCOUNTER → 2024-05-02 | Outpatient (CLI) | payer OTHER, SELFPAY ==
--- NOTE | 2024-05-02 15:58 | RAD_ITS ---
EXAM: XR Chest, 2 Views CLINICAL INDICATION: COPD TECHNIQUE: Frontal and lateral views of the chest. COMPARISON: No relevant prior studies available. FINDINGS: LUNGS AND PLEURAL SPACES: Hyperlucent lungs. Flattening of the diaphragm. No consolidation. No pneumothorax. HEART: Unremarkable. No cardiomegaly. MEDIASTINUM: Unremarkable. Normal mediastinal contour. BONES/JOINTS: Unremarkable. No acute fracture. RAD/Chest PA and Lateral IMPRESSION: Suggestion of COPD. Reading [facility] [place]
== END | disposition home or self-care (01) ==
LOC: MTRAD 15:57
PROVIDERS: PCP Family Medicine; Referring Provider Internal Medicine Pulmonary Disease; Visit Provider Internal Medicine Pulmonary Disease
DX: J44.9 Chronic obstructive pulmonary disease, unspecified (principal)
CPT/HCPCS: 71046

== ENCOUNTER → 2024-11-04 | Outpatient (CLI) | payer OTHER, SELFPAY ==
[2024-11-04 17:53] LABS: Hematocrit 37.4 % (37-47); Hemoglobin 11.7 g/dL (12.0-15.0); Immature Granulocytes Count 0.020 X10^3/uL (0.0-0.0); Mean Corp Hgb Conc 31.3 g/dL (32-36); Mean Corpuscular Volume 93.3 fL (81-99); Mean Platelet Vol. 11.1 fl (6.2-12.0); NRBC Flagged by Analyzer 0 % (0-5); Platelet Count 241 K/mm3 (150-450); RBC Distribution Width CV 12.8 % (11.6-14.6); RBC Distribution Width SD 43.9 fl (35.1-43.9); Red Blood Count 4.01 M/mm3 (4.2-5.4); White Blood Count 6.3 K/mm3 (4.4-11.0)
[2024-11-04 18:29] LABS: AST(SGOT) 20 U/L (<=31); Alanine Aminotransfer ALT/SGPT 16 U/L (<=34); Albumin, Serum 4.5 g/dL (3.4-4.8); Alkaline Phosphatase 45 U/L (35-104); Anion Gap 13 (5-15); BUN 12 mg/dL (4-19); BUN/Creat Ratio 25.3 RATIO (10-20); Calcium,Total 9.2 mg/dL (7.6-11.0); Carbon Dioxide 28.1 mmol/L (21.0-32.0); Chloride 100 mmol/L (98-108); Cholesterol 197 mg/dL (<=200); Globulin 2.5 g/dL (2.2-4.2); Glucose 100 mg/dL (70-99); Low Density Lipoprotein Calc. 105 mg/dL; Potassium 3.4 mmol/L (3.3-5.1); Triglycerides 60 mg/dL; Very Low Density Lipoprotein 12 mg/dL (5-40); cholesterol:hdl ratio screen 2.46
== END | disposition home or self-care (01) ==
LOC: MFPLAB 16:30
PROVIDERS: PCP Family Medicine; Referring Provider Family Medicine; Visit Provider Family Medicine
DX: E63.9 Nutritional deficiency, unspecified (principal); J44.9 Chronic obstructive pulmonary disease, unspecified; E78.5 Hyperlipidemia, unspecified
CPT/HCPCS: 36415; 80053; 80061; 85025